=== PATIENT | female | born 1950 | race Caucasian/White ===

== ENCOUNTER → 2016-12-02 | Outpatient (CLI) | payer OTHER ==
[2016-12-02 16:09] LABS: BASO % 0.6 % (0.0-1.0); EOS # 0.1 K/mm3 (0.0-0.50); LARGE UNSTAINED CELL # 0.2 K/mm3 (0.0-0.4); LYMPH # 1.7 K/mm3 (1.5-4.5); LYMPH % 36.1 % (24.0-44.0); MEAN CORPUSCULAR VOLUME 90.6 fl (80.0-96.0); MONO # 0.2 K/mm3 (0.0-0.8); MONO % 5.5 % (0.0-5.0); NEUTROPHILS # 2.2 K/mm3 (1.8-7.7); NEUTROPHILS % 51.8 % (36.0-66.0); PLATELET COUNT, AUTOMATED 221 k/mm3 (150-450); WHITE BLOOD COUNT 4.3 K/mm3 (4.0-10.0)
[2016-12-02 16:36] LABS: ALBUMIN/GLOBULIN RATIO 1.11 (1.00-1.93); ALKALINE PHOSPHATASE 106 U/L (45-117); ALT/SGPT 59 U/L (12-78); ANION GAP 9 MEQ/L (8-16); AST/SGOT 44 U/L (15-37); BILIRUBIN,TOTAL 0.5 MG/DL (0.2-1.0); BLOOD UREA NITROGEN 13 MG/DL (7-18); CALCIUM LEVEL 9.1 MG/DL (8.8-10.2); CARBON DIOXIDE LEVEL 25 MEQ/L (21-32); CHLORIDE LEVEL 109 MEQ/L (98-107); CHOLESTEROL LEVEL 199 MG/DL (<200); CREATININE FOR GFR 0.96 MG/DL (0.55-1.02); GLOMERULAR FILTRATION RATE > 60.0 (>45); GLUCOSE, FASTING 99 MG/DL (80-110); POTASSIUM SERUM 4.2 MEQ/L (3.5-5.1); SODIUM LEVEL 143 MEQ/L (136-145); TOTAL PROTEIN 7.6 GM/DL (6.4-8.2); TRIGLYCERIDES LEVEL 141 MG/DL (<150)
== END ==
LOC: M LAB 13:00
PROVIDERS: ATTEND Family Medicine
DX: K90.0 Celiac disease (principal); E66.01 Morbid (severe) obesity due to excess calories; M85.862 Other specified disorders of bone density and structure, left lower leg; Z79.899 Other long term (current) drug therapy

== ENCOUNTER → 2017-01-12 | Outpatient (REF) | payer OTHER | LOC: M LAB REF 13:11 | PROVIDERS: ATTEND Advanced Practice Midwife | DX: Z12.4 Encounter for screening for malignant neoplasm of cervix (principal) | CPT/HCPCS: 87624; G0123 ==

== ENCOUNTER → 2017-04-21 | Outpatient (CLI) | payer OTHER ==
--- NOTE | 2017-04-21 11:31 | REPMRS ---
Patient History The patient states she had a clinical breast exam in December 2016. Patient is postmenopausal and is nulliparous. Family history of colorectal cancer in mother at age 68 and endometrial cancer in paternal aunt at age 40. Taking estrogen for 3 years. Taking progesterone for 3 years. Digital Mammo Screening Bilat: April 21, 2017 - Exam #: [id number] Bilateral CC and MLO view(s) were taken. Technologist: Gloria Verdin, Technologist Prior study comparison: April 16, 2016, bilateral digital mammo screening bilat performed at [facility]. April 11, 2015, digital woman screen mammo, performed at [facility]. FINDINGS: There are scattered fibroglandular densities. There has been no change in the appearance of the mammogram from the prior studies. There is a mild amount of residual fibroglandular tissue which is fairly symmetric. There is no interval development of dominant mass, architectural distortion, or clustered microcalcification suggestive of malignancy. ASSESSMENT: BI-RADS/ACR category 1 mammogram. Negative. Recommendation Routine screening mammogram in 1 year (for women over age 40). This mammogram was interpreted with the aid of an FDA-approved computer-aided dectection system. Electronically Signed By: Mark Chamberlain MD 04/21/17 [id number]
== END ==
LOC: M RAD 10:52
PROVIDERS: ATTEND Advanced Practice Midwife
DX: Z12.31 Encounter for screening mammogram for malignant neoplasm of breast (principal)

== ENCOUNTER → 2017-06-12 | Outpatient (CLI) | payer OTHER ==
[2017-06-12 09:19] LABS: BASO % 0.5 % (0.0-1.0); EOS # 0.2 10^3/uL (0.0-0.50); EOS % 3.6 % (0.0-3.0); IMMATURE GRANULOCYTE % 0.2 % (0-0); LYMPH # 1.8 10^3/uL (1.5-4.5); LYMPH % 44.4 % (24.0-44.0); MEAN CORPUSCULAR HEMOGLOBIN 28.4 pg (27.0-33.0); MEAN CORPUSCULAR HGB CONC 31.3 g/dl (32.0-36.5); MEAN CORPUSCULAR VOLUME 90.7 fl (80.0-96.0); MONO # 0.4 10^3/uL (0.0-0.8); MONO % 8.7 % (0.0-5.0); NEUTROPHILS # 1.8 10^3/uL (1.8-7.7); NEUTROPHILS % 42.6 % (36.0-66.0); PLATELET COUNT, AUTOMATED 222 10^3/uL (150-450); RED CELL DISTRIBUTION WIDTH 14.3 % (11.5-14.5); WHITE BLOOD COUNT 4.1 10^3/uL (4.0-10.0)
[2017-06-12 09:51] LABS: ALBUMIN 3.8 GM/DL (3.2-5.2); ALBUMIN/GLOBULIN RATIO 1.12 (1.00-1.93); ALKALINE PHOSPHATASE 103 U/L (45-117); ALT/SGPT 71 U/L (12-78); ANION GAP 11 MEQ/L (8-16); AST/SGOT 51 U/L (7-37); BILIRUBIN,TOTAL 0.6 MG/DL (0.2-1.0); BLOOD UREA NITROGEN 13 MG/DL (7-18); CALCIUM LEVEL 8.7 MG/DL (8.8-10.2); CARBON DIOXIDE LEVEL 24 MEQ/L (21-32); CHLORIDE LEVEL 110 MEQ/L (98-107); CHOLESTEROL LEVEL 171 MG/DL (<200); CREATININE FOR GFR 0.95 MG/DL (0.55-1.02); FREE T4 0.98 NG/DL (0.76-1.46); GLOMERULAR FILTRATION RATE > 60.0 (>45); GLUCOSE, FASTING 115 MG/DL (80-110); POTASSIUM SERUM 4.2 MEQ/L (3.5-5.1); SODIUM LEVEL 145 MEQ/L (136-145); TOTAL PROTEIN 7.2 GM/DL (6.4-8.2); TRIGLYCERIDES LEVEL 127 MG/DL (<150)
== END ==
LOC: M LAB 08:49
PROVIDERS: ATTEND Physician Assistant
DX: K90.0 Celiac disease (principal); E55.9 Vitamin D deficiency, unspecified; E78.2 Mixed hyperlipidemia

== ENCOUNTER → 2017-08-27 | Outpatient (REF) | payer OTHER ==
[2017-08-27 14:34] LABS: INFLUENZA A AMPLIFICATION NEGATIVE (NEGATIVE); INFLUENZA B AMPLIFICATION NEGATIVE (NEGATIVE)
== END ==
LOC: M LAB REF 13:24
DX: J06.9 Acute upper respiratory infection, unspecified (principal)
CPT/HCPCS: 87502

== ENCOUNTER → 2017-09-09 | Outpatient (CLI) | payer OTHER ==
[2017-09-09 12:45] LABS: ESTIMATED AVERAGE GLUCOSE 111 MG/DL (60-110); HEMOGLOBIN A1c 5.5 %
[2017-09-09 13:02] LABS: ANION GAP 8 MEQ/L (8-16); BLOOD UREA NITROGEN 18 MG/DL (7-18); CALCIUM LEVEL 9.5 MG/DL (8.8-10.2); CARBON DIOXIDE LEVEL 27 MEQ/L (21-32); CHLORIDE LEVEL 105 MEQ/L (98-107); CREATININE FOR GFR 0.99 MG/DL (0.55-1.30); GLOMERULAR FILTRATION RATE 59.4 (>45); GLUCOSE, FASTING 105 MG/DL (70-100); POTASSIUM SERUM 4.1 MEQ/L (3.5-5.1); SODIUM LEVEL 140 MEQ/L (136-145)
== END ==
LOC: M LAB 11:56
DX: R73.01 Impaired fasting glucose (principal)
CPT/HCPCS: 83036

== ENCOUNTER → 2017-09-14 | Outpatient (CLI) | payer OTHER | LOC: M LAB 11:44 | DX: R05 Cough (principal) | CPT/HCPCS: 71046 ==

== ENCOUNTER 2017-10-12 05:27 | Emergency (ER) | payer OTHER ==
[2017-10-12] MEDS: NS 1,000 ML IV (06:45)
[2017-10-12] MEDS: KETOROLAC 30 MG/ML VIAL (J1885) IV (06:45)
[2017-10-12 06:51] LABS: BASO % 0.4 % (0.0-1.0); EOS # 0.2 10^3/uL (0.0-0.50); EOS % 4.6 % (0.0-3.0); HEMATOCRIT 41.6 % (36.0-47.0); HEMOGLOBIN 13.1 g/dl (12.0-16.0); IMMATURE GRANULOCYTE % 0.4 % (0-3.0); MEAN CORPUSCULAR HEMOGLOBIN 28.6 pg (27.0-33.0); MEAN CORPUSCULAR HGB CONC 31.5 g/dl (32.0-36.5); MEAN CORPUSCULAR VOLUME 90.8 fl (80.0-96.0); MONO # 0.5 10^3/uL (0.0-0.8); MONO % 9.4 % (0.0-5.0); NEUTROPHILS # 2.1 10^3/uL (1.8-7.7); NEUTROPHILS % 43.2 % (36.0-66.0); PLATELET COUNT, AUTOMATED 230 10^3/uL (150-450); RED BLOOD COUNT 4.58 10^6/uL (4.00-5.40); RED CELL DISTRIBUTION WIDTH 14.4 % (11.5-14.5); WHITE BLOOD COUNT 4.8 10^3/uL (4.0-10.0)
[2017-10-12 06:58] LABS: ANION GAP 11 MEQ/L (8-16); BLOOD UREA NITROGEN 11 MG/DL (7-18); CALCIUM LEVEL 8.8 MG/DL (8.8-10.2); CARBON DIOXIDE LEVEL 21 MEQ/L (21-32); CHLORIDE LEVEL 110 MEQ/L (98-107); CREATININE FOR GFR 0.88 MG/DL (0.55-1.30); GLOMERULAR FILTRATION RATE > 60.0 (>45); GLUCOSE, FASTING 105 MG/DL (70-100); POTASSIUM SERUM 4.6 MEQ/L (3.5-5.1); SODIUM LEVEL 142 MEQ/L (136-145)
[2017-10-12 07:01] LABS: KETONE, URINE AUTO RFX NEGATIVE (NEGATIVE); MUCUS, URINE RFX SMALL (NEGATIVE); NITRITE, URINE AUTO RFX NEGATIVE (NEGATIVE); RBC, URINE AUTO RFX 4 /HPF (0-3); SPECIFIC GRAVITY UR AUTO RFX 1.012 (1.002-1.035); SQUAM EPITHELIAL CELL UR AURFX 2 /HPF (0-6)
[2017-10-12] MEDS: MORPHINE 2 MG/ML 1ML SYRINGE (J2270) IV (07:42)
[2017-10-12] MEDS: metroNIDAZOLE (FLAGYL) 500 MG TAB PO (08:00)
[2017-10-12] MEDS: CIPROFLOXACIN 500 MG TAB PO (08:00)
[2017-10-12 08:32] LABS: LEUKOCYTE ESTERASE UR AUTO RFX 2+ (NEGATIVE); WBC, URINE AUTO RFX 14 /HPF (0-3)
== END 2017-10-12 08:13 | disposition home or self-care (01) ==
LOC: M ED 05:27
DX: K57.32 Diverticulitis of large intestine without perforation or abscess without bleeding (principal); F41.9 Anxiety disorder, unspecified; K21.9 Gastro-esophageal reflux disease without esophagitis; K90.0 Celiac disease; Z87.19 Personal history of other diseases of the digestive system; Z87.442 Personal history of urinary calculi; Z91.041 Radiographic dye allergy status; Z88.8 Allergy status to other drugs, medicaments and biological substances; Z88.1 Allergy status to other antibiotic agents; Z88.5 Allergy status to narcotic agent; Z88.2 Allergy status to sulfonamides; Z88.0 Allergy status to penicillin
CPT/HCPCS: J1885

== ENCOUNTER → 2017-12-11 | Outpatient (CLI) | payer OTHER ==
[2017-12-11 08:37] LABS: ANION GAP 9 MEQ/L (8-16); BLOOD UREA NITROGEN 18 MG/DL (7-18); CALCIUM LEVEL 9.1 MG/DL (8.8-10.2); CARBON DIOXIDE LEVEL 24 MEQ/L (21-32); CHLORIDE LEVEL 108 MEQ/L (98-107); CHOLESTEROL LEVEL 201 MG/DL (<200); CHOLESTEROL RISK RATIO 4.276 (<5); CREATININE FOR GFR 1.06 MG/DL (0.55-1.30); FREE T4 0.91 NG/DL (0.76-1.46); GLOMERULAR FILTRATION RATE 54.7 (>45); GLUCOSE, FASTING 105 MG/DL (70-100); HDL CHOLESTEROL 47 MG/DL (>40); LDL CHOLESTEROL 120.4 MG/DL (<100); NON-HDL-C 154 MG/DL; POTASSIUM SERUM 3.9 MEQ/L (3.5-5.1); SODIUM LEVEL 141 MEQ/L (136-145); TRIGLYCERIDES LEVEL 168 MG/DL (<150)
[2017-12-11 08:50] LABS: ESTIMATED AVERAGE GLUCOSE 103 MG/DL (60-110); HEMOGLOBIN A1c 5.2 %
== END ==
LOC: M LAB 07:25
DX: R73.01 Impaired fasting glucose (principal); E66.01 Morbid (severe) obesity due to excess calories; Z79.899 Other long term (current) drug therapy
CPT/HCPCS: 84443

== ENCOUNTER → 2018-02-23 | Outpatient (CLI) | payer OTHER ==
[2018-02-23 11:20] LABS: ANION GAP 11 MEQ/L (8-16); BLOOD UREA NITROGEN 15 MG/DL (7-18); CALCIUM LEVEL 9.1 MG/DL (8.8-10.2); CARBON DIOXIDE LEVEL 26 MEQ/L (21-32); CHLORIDE LEVEL 105 MEQ/L (98-107); CHOLESTEROL LEVEL 186 MG/DL (<200); CHOLESTEROL RISK RATIO 4.769 (<5); CREATININE FOR GFR 1.09 MG/DL (0.55-1.30); GLUCOSE, FASTING 113 MG/DL (70-100); HDL CHOLESTEROL 39 MG/DL (>40); NON-HDL-C 147 MG/DL; POTASSIUM SERUM 4.1 MEQ/L (3.5-5.1); SODIUM LEVEL 142 MEQ/L (136-145); TRIGLYCERIDES LEVEL 255 MG/DL (<150)
== END ==
LOC: M LAB 10:00
DX: N17.9 Acute kidney failure, unspecified (principal); E78.00 Pure hypercholesterolemia, unspecified

== ENCOUNTER → 2018-02-23 | Outpatient (CLI) | payer OTHER ==
[2018-02-23 10:40] LABS: BASO % 0.7 % (0.0-1.0); EOS # 0.2 10^3/uL (0.0-0.50); EOS % 2.7 % (0.0-3.0); HEMATOCRIT 41.7 % (36.0-47.0); HEMOGLOBIN 13.3 g/dl (12.0-15.5); IMMATURE GRANULOCYTE % 0.2 % (0-3.0); LYMPH # 2.6 10^3/uL (1.5-4.5); LYMPH % 45.5 % (24.0-44.0); MEAN CORPUSCULAR HGB CONC 31.9 g/dl (32.0-36.5); MEAN CORPUSCULAR VOLUME 90.8 fl (80.0-96.0); MONO # 0.5 10^3/uL (0.0-0.8); MONO % 9.4 % (0.0-5.0); NEUTROPHILS # 2.4 10^3/uL (1.8-7.7); NEUTROPHILS % 41.5 % (36.0-66.0); PLATELET COUNT, AUTOMATED 212 10^3/uL (150-450); RED BLOOD COUNT 4.59 10^6/uL (4.00-5.40); RED CELL DISTRIBUTION WIDTH 13.7 % (11.5-14.5); WHITE BLOOD COUNT 5.7 10^3/uL (4.0-10.0)
[2018-02-23 11:17] LABS: ALBUMIN/GLOBULIN RATIO 1.03 (1.00-1.93); ALKALINE PHOSPHATASE 111 U/L (45-117); ALT/SGPT 55 U/L (12-78); ANION GAP 9 MEQ/L (8-16); AST/SGOT 37 U/L (7-37); BILIRUBIN,DIRECT 0.1 MG/DL (0.0-0.2); BILIRUBIN,TOTAL 0.6 MG/DL (0.2-1.0); BLOOD UREA NITROGEN 14 MG/DL (7-18); CALCIUM LEVEL 9.1 MG/DL (8.8-10.2); CARBON DIOXIDE LEVEL 28 MEQ/L (21-32); CHLORIDE LEVEL 106 MEQ/L (98-107); CREATININE FOR GFR 1.06 MG/DL (0.55-1.30); GLOMERULAR FILTRATION RATE 54.7 (>45); GLUCOSE, FASTING 110 MG/DL (70-100); PHOSPHORUS LEVEL 3.6 MG/DL (2.5-4.9); POTASSIUM SERUM 4.3 MEQ/L (3.5-5.1); SODIUM LEVEL 143 MEQ/L (136-145); TOTAL PROTEIN 7.9 GM/DL (6.4-8.2)
== END ==
LOC: M LAB 10:03
DX: Z51.81 Encounter for therapeutic drug level monitoring (principal); Z79.899 Other long term (current) drug therapy; N17.9 Acute kidney failure, unspecified; E78.00 Pure hypercholesterolemia, unspecified
CPT/HCPCS: 80076

== ENCOUNTER 2018-03-03 11:27 | Day surgery (SDC) | payer OTHER ==
[2018-03-03] MEDS: LR 1,000 ML IV (12:44)
[2018-03-03] MEDS ORDERED: fentaNYL 100 MCG/2 ML INJECTION (J3010) As Ordered (14:44)
[2018-03-03] MEDS ORDERED: MIDAZOLAM INJ 2 MG/2 ML VIAL (J2250) As Ordered (14:44)
[2018-03-03] MEDS ORDERED: LIDOCAINE 2% INJ 100 MG/5 ML SDV (FOR ANES.) As Ordered (14:44)
[2018-03-03] MEDS ORDERED: PROPOFOL 200 MG/20 ML VIAL As Ordered (14:44)
[2018-03-03] MEDS ORDERED: ROCURONIUM BROMIDE 50 MG/5 ML VIAL As Ordered (14:44)
[2018-03-03] MEDS: dexameTHASONE 4 MG/ML 1ML VIAL (J1100) IV (14:45)
[2018-03-03] MEDS ORDERED: ONDANSETRON 4MG/2ML VIAL (J2405) As Ordered (14:55)
[2018-03-03] MEDS ORDERED: GLYCOPYRROLATE INJ 0.2 MG/ML 2 ML VIAL As Ordered (15:14)
[2018-03-03] MEDS ORDERED: NEOSTIGMINE 10 MG/10 ML VIAL (J2710) As Ordered (15:14)
[2018-03-03] MEDS ORDERED: PERCOCET 5MG/325MG TAB As Ordered (15:36)
[2018-03-03] MEDS ORDERED: NORCO, ANEXSIA 5/325MG TABLET (HYDROcodone/ACETAMINOPHEN) As Ordered (15:43)
[2018-03-03] MEDS: NORCO, ANEXSIA 5/325MG TABLET (HYDROcodone/ACETAMINOPHEN) PO ×2 (15:45→16:18)
[2018-03-03] MEDS ORDERED: PERCOCET 5MG/325MG TAB PO (16:00)
[2018-03-03] MEDS ORDERED: ONDANSETRON 4MG/2ML VIAL (J2405) IV ×2 (16:00)
[2018-03-03] MEDS ORDERED: METOCLOPRAMIDE INJ 10MG/2ML VIAL (J2765) IV (16:00)
[2018-03-03] MEDS ORDERED: HYDROMORPHONE HCL 0.5 MG/ 0.5 ML SYRINGE (J1170 PER 1) IV (16:00)
[2018-03-03] MEDS ORDERED: LR 1,000 ML IV ×3 (16:00)
[2018-03-03] MEDS ORDERED: MEPERIDINE INJ 25 MG/ML VIAL (J2175) IV (16:00)
[2018-03-03] MEDS ORDERED: fentaNYL 100 MCG/2 ML INJECTION (J3010) IV ×2 (16:00)
== END 2018-03-03 17:25 | disposition home or self-care (01) ==
LOC: M SDC 11:27
DX: 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, including tongue (principal); E78.00 Pure hypercholesterolemia, unspecified; K57.32 Diverticulitis of large intestine without perforation or abscess without bleeding; K44.9 Diaphragmatic hernia without obstruction or gangrene; K21.9 Gastro-esophageal reflux disease without esophagitis; M81.0 Age-related osteoporosis without current pathological fracture; L71.9 Rosacea, unspecified; L40.9 Psoriasis, unspecified; F41.9 Anxiety disorder, unspecified; K58.9 Irritable bowel syndrome, unspecified; D64.9 Anemia, unspecified; R73.01 Impaired fasting glucose; K90.41 Non-celiac gluten sensitivity; E66.9 Obesity, unspecified; Z68.41 Body mass index [BMI] 40.0-44.9, adult; Z88.0 Allergy status to penicillin; Z88.1 Allergy status to other antibiotic agents; Z88.2 Allergy status to sulfonamides; Z88.4 Allergy status to anesthetic agent; Z88.5 Allergy status to narcotic agent; Z88.8 Allergy status to other drugs, medicaments and biological substances; Z91.041 Radiographic dye allergy status; Z79.899 Other long term (current) drug therapy; Z78.0 Asymptomatic menopausal state; Z87.442 Personal history of urinary calculi
CPT/HCPCS: 41599

== ENCOUNTER → 2018-05-10 | Outpatient (CLI) | payer OTHER | LOC: M RAD 08:53 | DX: Z12.31 Encounter for screening mammogram for malignant neoplasm of breast (principal) | CPT/HCPCS: 77067 ==

== ENCOUNTER → 2018-06-14 | Outpatient (CLI) | payer OTHER ==
[2018-06-14 08:28] LABS: ANION GAP 6 MEQ/L (8-16); BLOOD UREA NITROGEN 14 MG/DL (7-18); CARBON DIOXIDE LEVEL 26 MEQ/L (21-32); CHLORIDE LEVEL 111 MEQ/L (98-107); CREATININE FOR GFR 0.89 MG/DL (0.55-1.30); GLOMERULAR FILTRATION RATE > 60.0 (>45); GLUCOSE, FASTING 114 MG/DL (70-100); SODIUM LEVEL 143 MEQ/L (136-145)
[2018-06-14 12:12] LABS: ESTIMATED AVERAGE GLUCOSE 108 MG/DL (60-110); HEMOGLOBIN A1c 5.4 %
== END ==
LOC: M LAB 07:27
DX: R73.01 Impaired fasting glucose (principal)
CPT/HCPCS: 83036

== ENCOUNTER → 2018-12-01 | Outpatient (REF) | payer OTHER ==
[~2018-12-01] MED LIST: ALAW0.02 OU; ALPR0.25 PO; CALC750T PO; CIPR-249 PO; D 50CAP PO; DAPS25TA2 PO; DICY10CA13 PO; ESTRTAB10 PO; FISH120012 PO; FLAG500T PO; FLON1SPR; HYDR-3715 PO; LEUTEIN PO; META0.52 PO; NATU400T PO; NATU99.0 OU; PANT40TA3; PRO-CAP PO; PROT1TAB2 PO; RANI300T PO; REST0.05 OU; REST0.057; TOPI25TA10 PO; VITA100018 PO; VITA100066 PO; ZOFR4TAB14 PO
== END ==
LOC: M LAB REF 17:46
PROVIDERS: ATTEND Physician Assistant
DX: R30.0 Dysuria (principal)

== ENCOUNTER → 2018-12-10 | Outpatient (CLI) | payer MEDICARE ==
[2018-12-10 11:54] LABS: BASO % 0.6 % (0.0-1.0); EOS # 0.1 10^3/uL (0.0-0.50); EOS % 2.4 % (0.0-3.0); HEMATOCRIT 42.2 % (36.0-47.0); HEMOGLOBIN 13.2 g/dl (12.0-15.5); LYMPH # 2.3 10^3/uL (1.5-4.5); LYMPH % 45.4 % (24.0-44.0); MEAN CORPUSCULAR HEMOGLOBIN 28.5 pg (27.0-33.0); MEAN CORPUSCULAR HGB CONC 31.3 g/dl (32.0-36.5); MEAN CORPUSCULAR VOLUME 91.1 fl (80.0-96.0); MONO # 0.5 10^3/uL (0.0-0.8); NEUTROPHILS # 2.1 10^3/uL (1.8-7.7); NEUTROPHILS % 42.4 % (36.0-66.0); PLATELET COUNT, AUTOMATED 254 10^3/uL (150-450); RED BLOOD COUNT 4.63 10^6/uL (4.00-5.40)
[2018-12-10 12:31] LABS: ALBUMIN 3.7 GM/DL (3.2-5.2); BILIRUBIN,TOTAL 0.6 MG/DL (0.2-1.0); CALCIUM LEVEL 8.7 MG/DL (8.8-10.2); CHOLESTEROL RISK RATIO 4.219 (<5); CREATININE FOR GFR 0.98 MG/DL (0.55-1.30); GLOMERULAR FILTRATION RATE 59.7 (>39); POTASSIUM SERUM 4.4 MEQ/L (3.5-5.1)
[2018-12-10 12:42] LABS: HEMOGLOBIN A1c 5.2 %
== END ==
LOC: M LAB 11:13
PROVIDERS: ATTEND Physician Assistant
DX: E78.00 Pure hypercholesterolemia, unspecified (principal)

== ENCOUNTER → 2019-03-25 | Outpatient (CLI) | payer MEDICARE ==
--- NOTE | 2019-03-25 10:15 | REP ---
Left knee four views : There is no fracture or dislocation. Mineralization and joint spaces are normal. There are no calcifications or foreign bodies. Impression: Negative left knee . Electronically Signed by Mark Garcia MD 03/25/2019 10:07 A
--- NOTE | 2019-03-25 10:17 | REP ---
Left ankle four views : There is no fracture or dislocation. Mineralization and joint spaces are normal. There are no calcifications or foreign bodies. There are calcaneal plantar and Achilles spurs. Impression: Calcaneal plantar and Achilles spurs, otherwise, negative left ankle . Electronically Signed by Mark Garcia MD 03/25/2019 10:08 A
== END ==
LOC: M WUC 08:42
PROVIDERS: ATTEND Physician Assistant
DX: M77.32 Calcaneal spur, left foot (principal)

== ENCOUNTER → 2019-05-11 | Outpatient (CLI) | payer MEDICARE ==
--- NOTE | 2019-05-11 12:08 | REPMRS ---
Patient History The patient states she had a clinical breast exam in 2018. Patient is postmenopausal and is nulliparous. Family history of colorectal cancer at age 68 in mother, endometrial cancer at age 40 in paternal aunt. Took estrogen for 5 years. Took progesterone for 5 years. Digital Mammo Screening Bilat: May 11, 2019 - Exam #: [id number] Bilateral CC and MLO view(s) were taken. Technologist: Jessi Connor, Technologist Prior study comparison: May 10, 2018, bilateral digital mammo screening bilat performed at [facility]. April 21, 2017, bilateral digital mammo screening bilat performed at [facility]. April 16, 2016, bilateral digital mammo screening bilat performed at [facility]. FINDINGS: The breast tissue is almost entirely fat. There has been no change in the appearance of the mammogram from the prior studies. There is no interval development of dominant mass, architectural distortion, or grouped microcalcification typical of malignancy. 3-D tomosynthesis shows no additional findings. Assessment: BI-RADS/ACR category 1 mammogram. Negative Mammogram. Recommendation Routine screening mammogram of both breasts in 1 year (for women over age 40). This patient's Lifetime Breast Cancer RIsk is estimated at 8.3 %. This mammogram was interpreted with the aid of an FDA-approved computer-aided dectection system. Electronically Signed By: Cj Barillas MD 05/11/19 [id number]
== END ==
LOC: M RAD 07:42
PROVIDERS: ATTEND Advanced Practice Midwife
DX: Z12.31 Encounter for screening mammogram for malignant neoplasm of breast (principal); Z80.0 Family history of malignant neoplasm of digestive organs; Z80.49 Family history of malignant neoplasm of other genital organs

== ENCOUNTER → 2019-06-27 | Outpatient (CLI) | payer MEDICARE ==
--- NOTE | 2019-06-30 10:38 | DEXA ---
AP SPINE L1 - L4 1.165 -0.2 1.4 LT FEMUR TOTAL 0.909 -0.8 0.7 LT NECK 0.839 -1.4 0.3 RT FEMUR TOTAL 0.881 -1.0 0.5 RT NECK 0.878 -1.1 0.6 TOTAL BODY TOTAL OTHER COMMENTS: Normal bone densitometry of the spine. There is low bone density of the hips. The decreased density of the spine does not represent a significant change. The increased density of the left hip does not represent a significant change. The decreased density of the right hip does not represent a significant change. The density of the spine is increased 4.7% since the initial exam on 04/04/2003. The spine density has decreased 0.5% since the most recent exam on 04/10/2014. The density of the left hip has increased 6.3% since the initial exam on 04/04/2003. The density of the left hip has increased 1.6% since the most recent exam on 04/10/2014. The density of the right hip has increased 1.5% since the initial exam on 04/04/2003. The density of the right hip has decreased 0.6% since the most recent exam on 04/10/2014. FOLLOW-UP: Recommendation for the next bone density exam: 2 years. LONI
== END ==
LOC: M WHC 08:17
PROVIDERS: ATTEND Advanced Practice Midwife
DX: Z13.820 Encounter for screening for osteoporosis (principal); M85.851 Other specified disorders of bone density and structure, right thigh; M85.852 Other specified disorders of bone density and structure, left thigh

== ENCOUNTER → 2019-09-24 | Outpatient (CLI) | payer MEDICARE ==
[~2019-09-24] MED LIST changes: +CALCCAP4 PO; +ESTR1TAB PO; +GNP250TA9 PO; +KP F1200 PO; +MELA5CAP2 PO; +SYST1SOL OU; +TOPA1TAB PO; +VITA30004 PO; +[UNRECOGNIZED DRUG - CODE] PO
[2019-09-24 11:37] LABS: BASO % 0.7 % (0.0-1.0); EOS # 0.1 10^3/uL (0.0-0.5); EOS % 1.9 % (0.0-3.0); HEMATOCRIT 40.7 % (36.0-47.0); HEMOGLOBIN 12.7 g/dl (12.0-15.5); LYMPH # 1.7 10^3/uL (1.5-5.0); LYMPH % 39.4 % (24.0-44.0); MEAN CORPUSCULAR HEMOGLOBIN 28.7 pg (27.0-33.0); MEAN CORPUSCULAR HGB CONC 31.2 g/dl (32.0-36.5); MEAN CORPUSCULAR VOLUME 91.9 fl (80.0-96.0); MONO # 0.4 10^3/uL (0.0-0.8); MONO % 8.2 % (0.0-5.0); NEUTROPHILS # 2.1 10^3/uL (1.5-8.5); NEUTROPHILS % 49.6 % (36.0-66.0); PLATELET COUNT, AUTOMATED 204 10^3/uL (150-450); RED BLOOD COUNT 4.43 10^6/uL (4.00-5.40); WHITE BLOOD COUNT 4.3 10^3/uL (4.0-10.0)
[2019-09-24 11:54] LABS: INR 1.16; PARTIAL THROMBOPLASTIN TIME 34.3 SECONDS (25.0-38.4); PROTHROMBIN TIME 14.5 SECONDS (11.8-14.0)
[2019-09-24 11:59] LABS: ALBUMIN 4.1 GM/DL (3.2-5.2); ALT/SGPT 50 U/L (12-78); BILIRUBIN,TOTAL 0.6 MG/DL (0.2-1.0); BLOOD UREA NITROGEN 17 MG/DL (7-18); CALCIUM LEVEL 8.9 MG/DL (8.8-10.2); CARBON DIOXIDE LEVEL 25 MEQ/L (21-32); CHLORIDE LEVEL 111 MEQ/L (98-107); CREATININE FOR GFR 0.85 MG/DL (0.55-1.30); GLOMERULAR FILTRATION RATE > 60.0 (>39); GLUCOSE, FASTING 107 MG/DL (70-100); POTASSIUM SERUM 4.1 MEQ/L (3.5-5.1); SODIUM LEVEL 142 MEQ/L (136-145); TOTAL PROTEIN 7.7 GM/DL (6.4-8.2)
== END ==
LOC: M LAB 10:33
PROVIDERS: ATTEND Physician Assistant
DX: Z01.812 Encounter for preprocedural laboratory examination (principal)

== ENCOUNTER 2019-09-29 07:27 | Day surgery (SDC) | payer MEDICARE ==
[~2019-09-29] VITALS: Ht 149.9 cm; Wt 102.6 kg
[2019-09-29] MEDS ORDERED: dexameTHASONE 4 MG/ML 1ML VIAL (J1100) IV ONE (08:00)
[2019-09-29] MEDS ORDERED: LIDOCAINE W/EPINEPHRINE 1% 20ML VIAL As Ordered ONE (08:31)
[2019-09-29] MEDS ORDERED: LIDOCAINE 2% INJ 100 MG/5 ML SDV (FOR ANES.) As Ordered ONE (08:39)
[2019-09-29] MEDS ORDERED: propofoL 200 MG/20 ML VIAL As Ordered ONE (08:39)
[2019-09-29] MEDS ORDERED: ROCURONIUM BROMIDE 50 MG/5 ML VIAL As Ordered ONE (08:39)
[2019-09-29] MEDS ORDERED: dexameTHASONE 4 MG/ML 1ML VIAL (J1100) As Ordered ONE (08:39)
[2019-09-29] MEDS ORDERED: fentaNYL 250 MCG/5 ML INJECTION (J3010) As Ordered ONE (08:40)
[2019-09-29] MEDS ORDERED: MIDAZOLAM INJ 2 MG/2 ML VIAL (J2250) As Ordered ONE (08:40)
[2019-09-29] MEDS ORDERED: LR 1,000 ML IV ONE (08:45)
[2019-09-29] MEDS ORDERED: LACRILUBE (AKWA TEARS) OPHTH OINT 3.5 GM As Ordered ONE (09:32)
[2019-09-29] MEDS ORDERED: SUGAMMADEX SODIUM 500 MG/5 ML VIAL (BRIDION) As Ordered ONE (10:20)
[2019-09-29] MEDS ORDERED: LR 1,000 ML IV SCH (10:30)
[2019-09-29] MEDS ORDERED: ONDANSETRON 4MG/2ML VIAL (J2405) IV PRN (10:30)
[2019-09-29] MEDS ORDERED: fentaNYL 100 MCG/2 ML INJECTION (J3010) IV PRN (10:30)
[2019-09-29] MEDS ORDERED: ACETAMINOPHEN 500 MG TAB PO ONE (11:00)
[2019-09-29 12:10] VITALS: BP 139/62
--- NOTE | 2019-10-03 12:19 | RO ---
DATE OF PROCEDURE: 09/29/2019 PREPROCEDURE DIAGNOSIS: Lesion left lateral oral tongue. POSTPROCEDURE DIAGNOSIS: Lesion left lateral oral tongue. PROCEDURE: Excision biopsy of the left lateral oral tongue lesion. SURGEON: Dr. Skip Fleming. SENIOR ACCOUNT EXECUTIVE: ANESTHESIA: General. CLINICAL PREAMBLE: This 68-year-old woman presented to the office with history of a nonhealing lesion over the lateral oral tongue. Management options including excision and biopsy have been discussed. The patient understood and consented to the procedure. DESCRIPTION OF PROCEDURE: The patient was identified in pre-holding and brought to the operating room in stable condition. In the supine position on the operating room table, the patient received general anesthesia followed by nasal tracheal intubation without incident. The patient was prepped and draped in the usual fashion for the procedure. The oral cavity was then retracted open with a side-opening mouth gag. The tongue was retracted laterally to the right side exposing the left lateral oral tongue. The lesion was noted to be 0.5 cm in size. Excision was then performed. One suture was placed to indicate anterior margin and two sutures were placed to indicate superior margin. An additional tissue was obtained from the superior margin to insure complete excision. When hemostasis was achieved using bipolar electrocautery, 0 chromic suture was then used to reapproximate the mucosal edge on the operative sites. Sponge and instrument counts were correct at the end of the procedure. Estimated blood loss was less than 5 mL. General anesthesia was reversed and patient was extubated and moved to the recovery room stable condition. SPECIMENS: 1. One. suture was placed to indicate anterior margin and two sutures were placed to indicate superior margin. 2. 0.2 cm additional margin from the superior portion.
== END 2019-09-29 12:28 | disposition home or self-care (01) ==
LOC: M SDC 07:27
PROVIDERS: ATTEND Otolaryngology
DX: D00.07 Carcinoma in situ of tongue (principal); K58.1 Irritable bowel syndrome with constipation; K57.92 Diverticulitis of intestine, part unspecified, without perforation or abscess without bleeding; D64.9 Anemia, unspecified; M19.90 Unspecified osteoarthritis, unspecified site; K21.9 Gastro-esophageal reflux disease without esophagitis; K44.9 Diaphragmatic hernia without obstruction or gangrene; F41.9 Anxiety disorder, unspecified; H81.10 Benign paroxysmal vertigo, unspecified ear; K90.0 Celiac disease; G43.909 Migraine, unspecified, not intractable, without status migrainosus; E78.00 Pure hypercholesterolemia, unspecified; L40.9 Psoriasis, unspecified; L71.9 Rosacea, unspecified; Z88.0 Allergy status to penicillin; Z88.1 Allergy status to other antibiotic agents; Z88.2 Allergy status to sulfonamides; Z88.8 Allergy status to other drugs, medicaments and biological substances; Z91.041 Radiographic dye allergy status; Z88.4 Allergy status to anesthetic agent; Z88.5 Allergy status to narcotic agent; Z79.899 Other long term (current) drug therapy
CPT/HCPCS: 41100; 88305; J1100; J2250; J3010

== ENCOUNTER → 2019-11-02 | Outpatient (CLI) | payer MEDICARE ==
[~2019-11-02] MED LIST changes: +PROHANCE 279.3MG/ML 15ML VIAL (A9576) As Ordered ONE; +PROHANCE 279.3MG/ML 5ML VIAL (A9576) As Ordered ONE
[2019-11-02 10:43] LABS: BLOOD UREA NITROGEN 25 MG/DL (7-18); CREATININE FOR GFR 0.97 MG/DL (0.55-1.30); GLOMERULAR FILTRATION RATE > 60.0 (>39)
--- NOTE | 2019-11-02 13:11 | REP ---
ORBITAL FACIAL MRI STUDY WITHOUT AND WITH IV CONTRAST: HISTORY: Carcinoma in situ of the tongue. TECHNIQUE: Axial and coronal imaging planes were utilized. T1 and T2-weighted sequences include spin-echo, fast spin echo, inversion recovery sequences with and without fat saturation. The gadolinium enhancement dose is 20 mL of intravenous ProHance. MRI FINDINGS: There is a oval-shaped 1.2 cm mucous retention cyst inferiorly and medially in the left maxillary sinus. No other paranasal sinus abnormality is observed. No bony mandibular or maxillary lesion is seen. No intraorbital mass is observed. The parotid and submandibular glands are unremarkable and symmetric. No abnormality is observed in the tongue or floor of the mouth soft tissues. There is a small zone of magnetic field susceptibility artifact emanating from the left side dental hardware. Contrast study shows no abnormal contrast enhancement. No vascular abnormalities observed. There is no evidence of neck adenopathy. Normal appearing intraparotid lymph nodes are noted on the left. IMPRESSION: Small mucous retention cyst left maxillary sinus. Otherwise negative. Electronically Signed by Desmond Barillas MD 11/02/2019 01:45 P
== END ==
LOC: M RAD 10:01
PROVIDERS: ATTEND Otolaryngology
DX: D00.07 Carcinoma in situ of tongue (principal); J34.1 Cyst and mucocele of nose and nasal sinus
CPT/HCPCS: 36415; 70543; 82565; 84520; A9576

== ENCOUNTER → 2019-11-19 | Outpatient (CLI) | payer MEDICARE ==
[~2019-11-19] MED LIST changes: +HYDR-3713 PO; +LUTE6CAP9 PO; -PROHANCE 279.3MG/ML 15ML VIAL (A9576) As Ordered ONE; -PROHANCE 279.3MG/ML 5ML VIAL (A9576) As Ordered ONE; +SM HTAB3 PO; +VITAD1000T PO; +[UNRECOGNIZED DRUG - OTHER] PO
== END ==
LOC: M LABSMTC 10:07
PROVIDERS: ATTEND Anesthesiology
DX: Z11.59 Encounter for screening for other viral diseases (principal)

== ENCOUNTER 2019-11-21 07:18 | Day surgery (SDC) | payer MEDICARE ==
[~2019-11-21] VITALS: Ht 152.4 cm; Wt 103.0 kg
[~2019-11-21 07:18] MED LIST changes: +LIDOCAINE 2% 100MG/5ML SDV (FOR ANES.) As Ordered ONE; +LR 1,000 ML IV ONE; +MIDAZOLAM INJ 2MG/2ML VIAL (J2250 PER 1MG) As Ordered ONE; +ONDANSETRON 4MG/2ML VIAL As Ordered ONE; +ROCURONIUM BROMIDE 50 MG/5 ML VIAL As Ordered ONE; -[UNRECOGNIZED DRUG - OTHER] PO; +dexameTHASONE 4 MG/ML 1ML VIAL (J1100 PER 1MG) As Ordered ONE; +dexameTHASONE 4 MG/ML 1ML VIAL (J1100 PER 1MG) IV ONE; +fentaNYL 100 MCG/2 ML INJECTION (J3010) As Ordered ONE; +propofoL 200 MG/20 ML VIAL As Ordered ONE
[2019-11-21] MEDS ORDERED: [UNRECOGNIZED DRUG - OTHER] PO (07:49)
[2019-11-21] MEDS ORDERED: LIDOCAINE W/EPINEPHRINE 1% 20ML VIAL As Ordered ONE (08:33)
[2019-11-21] MEDS ORDERED: OXYMETAZOLINE NASAL SPRAY (AFRIN) As Ordered ONE (08:36)
[2019-11-21] MEDS ORDERED: dexameTHASONE 4 MG/ML 1ML VIAL (J1100 PER 1MG) As Ordered ONE (09:14)
[2019-11-21] MEDS ORDERED: PHENYLephrine HCL 500 MCG/5 ML (100MCG/ML) SYRINGE (J2370) As Ordered ONE (09:14)
[2019-11-21] MEDS ORDERED: LACRILUBE (AKWA TEARS) OPHTH OINT 3.5 GM As Ordered ONE (09:15)
[2019-11-21] MEDS ORDERED: GLYCOPYRROLATE INJ 0.2 MG/ML 2 ML VIAL As Ordered ONE (09:21)
[2019-11-21] MEDS ORDERED: fentaNYL 100 MCG/2 ML INJECTION (J3010) As Ordered ONE (09:26)
[2019-11-21] MEDS ORDERED: ACETAMINOPHEN 1000MG 100ML IV BTL (OFIRMEV) (J0131 PER 10MG) As Ordered ONE (09:51)
[2019-11-21] MEDS ORDERED: KETOROLAC 60 MG/2 ML VIAL As Ordered ONE (10:00)
[2019-11-21] MEDS ORDERED: SUGAMMADEX SODIUM 500 MG/5 ML VIAL (BRIDION) As Ordered ONE (10:01)
[2019-11-21] MEDS ORDERED: ONDANSETRON 4MG/2ML VIAL IV PRN (11:00)
[2019-11-21] MEDS ORDERED: METOCLOPRAMIDE INJ 10MG/2ML VIAL (J2765 PER 1) IV PRN (11:00)
[2019-11-21] MEDS ORDERED: fentaNYL 100 MCG/2 ML INJECTION (J3010) IV PRN (11:00)
[2019-11-21] MEDS ORDERED: LR 1,000 ML IV SCH ×2 (11:00)
[2019-11-21] MEDS ORDERED: MORPHINE 4 MG/ML 1ML VIAL/SYRINGE (J2270) As Ordered ONE (11:26)
[2019-11-21] MEDS ORDERED: MORPHINE 4 MG/ML 1ML VIAL/SYRINGE (J2270) IV PRN (11:45)
[2019-11-21] MEDS ORDERED: MORPHINE 2 MG/ML 1ML VIAL (J2270) IV PRN (11:45)
[2019-11-21] MEDS ORDERED: diphenhydrAMINE 50MG/ML VIAL (J1200) As Ordered ONE (11:53)
[2019-11-21] MEDS ORDERED: diphenhydrAMINE 50MG/ML VIAL (J1200) IV PRN (12:15)
[2019-11-21 13:35] VITALS: BP 131/69
--- NOTE | 2019-11-23 12:59 | RO ---
DATE OF PROCEDURE: 11/21/2019 PREOPERATIVE DIAGNOSIS: Squamous cell carcinoma left oral tongue. POSTOPERATIVE DIAGNOSIS: Squamous cell carcinoma left oral tongue. PROCEDURE: Excision of the squamous cell carcinoma of the left oral tongue. SURGEON: Dr. Skip Fleming SENIOR ANALYTICAL CHEMIST: Delvis Baum ANESTHESIA: General. INTRAOPERATIVE FINDINGS: 2 x 1.5 cm left oral tongue excised, one suture indicating anterior margin and two sutures indicating superior margin. Intraoperative frozen section of the deep margin negative. CLINICAL PREAMBLE: This is a 69-year-old woman who noticed a lesion over the left oral tongue several months ago. 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 As such, management options including re-excision of the left lateral oral tongue lesion had been discussed in detail with the patient. She understood and consented to the procedure. OR NARRATION: The patient was identified in preoperative holding and brought to the operating room in stable condition. In supine position on the operating table, the patient received general anesthesia followed by nasoendotracheal intubation without incident. The patient prepped and draped in the usual sterile manner for the procedure. The dental block was placed to maintain opening of the oral cavity. The tongue was then retracted anteriorly and rightward to expose the left lateral oral tongue. The previous excised area was identified via palpation as well as visualization. The proposed excision area was then outlined and then infiltrated with 1% lidocaine with 1:100,000 epinephrine. Incision was then made sharply using the #15 scalpel. A depth of 0.5 cm was achieved. The specimen measured 2 cm in horizontal plane and 1.5 cm in vertical plane. The specimen was then excised en bloc and marked. The margins were obtained and sent for frozen section which were reported to be negative for malignancy. Hemostasis was achieved. The wound closure was achieved via primary closure with horizontal mattress sutures. At the end of the procedure, sponge and instrument counts were correct. There were no complications identified. Estimated blood loss was less than 5 mL. General anesthesia was reversed and the patient was extubated and brought to the recovery room in stable condition.
== END 2019-11-21 13:54 | disposition home or self-care (01) ==
LOC: M SDC 07:18
PROVIDERS: ATTEND Otolaryngology
DX: D00.07 Carcinoma in situ of tongue (principal); K58.8 Other irritable bowel syndrome; K21.9 Gastro-esophageal reflux disease without esophagitis; L40.8 Other psoriasis; E66.01 Morbid (severe) obesity due to excess calories; M81.0 Age-related osteoporosis without current pathological fracture; Z79.899 Other long term (current) drug therapy; K44.9 Diaphragmatic hernia without obstruction or gangrene; K57.80 Diverticulitis of intestine, part unspecified, with perforation and abscess without bleeding; K90.0 Celiac disease; Z88.0 Allergy status to penicillin; Z88.2 Allergy status to sulfonamides; Z88.8 Allergy status to other drugs, medicaments and biological substances; Z91.041 Radiographic dye allergy status
CPT/HCPCS: 41112; 88305; 88309; 88331; J0131; J1100; J1200; J1885; J2250; J2270; J2370; J2405; J3010

== ENCOUNTER → 2020-06-13 | Outpatient (REF) | payer MEDICARE ==
[~2020-06-13] MED LIST changes: +D31000TA2 PO; -LIDOCAINE 2% 100MG/5ML SDV (FOR ANES.) As Ordered ONE; -LR 1,000 ML IV ONE; -MIDAZOLAM INJ 2MG/2ML VIAL (J2250 PER 1MG) As Ordered ONE; -ONDANSETRON 4MG/2ML VIAL As Ordered ONE; +PANT40TA29; -PANT40TA3; -ROCURONIUM BROMIDE 50 MG/5 ML VIAL As Ordered ONE; -VITAD1000T PO; +[UNRECOGNIZED DRUG - OTHER] PO; -dexameTHASONE 4 MG/ML 1ML VIAL (J1100 PER 1MG) As Ordered ONE; -dexameTHASONE 4 MG/ML 1ML VIAL (J1100 PER 1MG) IV ONE; -fentaNYL 100 MCG/2 ML INJECTION (J3010) As Ordered ONE; -propofoL 200 MG/20 ML VIAL As Ordered ONE
== END ==
LOC: M LAB REF 16:54
PROVIDERS: ATTEND Physician Assistant
DX: R30.0 Dysuria (principal)

== ENCOUNTER → 2020-08-06 | Outpatient (CLI) | payer MEDICARE ==
--- NOTE | 2020-08-06 12:34 | REPMRS ---
Patient History The patient states she had a clinical breast exam in July 2020.Family history of colorectal cancer at age 68 in mother, endometrial cancer at age 40 in paternal aunt. Took estrogen for 5 years. Took progesterone for 5 years. 3D TOMOSYNTHESIS WAS PERFORMED. The Malika Lewis lifetime risk for breast cancer is 7.9%. Vol[place] breast density a. Digital Woman Screen Mammo: August 06, 2020 - Exam #: [id number] Bilateral CC and MLO view(s) were taken. Technologist: Gloria Verdin, Technologist Prior study comparison: May 11, 2019, bilateral digital mammo screening bilat, performed at [facility]. May 10, 2018, bilateral digital mammo screening bilat, performed at [facility]. FINDINGS: There are scattered fibroglandular densities. There has been no change in the appearance of the mammogram from the prior studies. There is a mild amount of residual fibroglandular tissue which is fairly symmetric. There is no interval development of dominant mass, architectural distortion, or clustered microcalcification suggestive of malignancy. Assessment: BI-RADS/ACR category 1 mammogram. Negative Mammogram. Recommendation Routine screening mammogram in 1 year (for women over age 40). This mammogram was interpreted with the aid of an FDA-approved computer-aided dectection system. Electronically Signed By: Mark Chamberlain MD 08/06/20 [id number]
== END ==
LOC: M WHC 10:10
PROVIDERS: ATTEND Advanced Practice Midwife
DX: Z01.419 Encounter for gynecological examination (general) (routine) without abnormal findings (principal); Z12.31 Encounter for screening mammogram for malignant neoplasm of breast; Z80.0 Family history of malignant neoplasm of digestive organs; Z92.23 Personal history of estrogen therapy; Z92.29 Personal history of other drug therapy
CPT/HCPCS: 77063; 77067; G0101

== ENCOUNTER → 2020-09-17 | Outpatient (CLI) | payer MEDICARE ==
[2020-09-17 10:51] LABS: BASO % 0.5 % (0.0-1.0); EOS # 0.1 10^3/uL (0.0-0.5); EOS % 1.6 % (0.0-3.0); HEMATOCRIT 40.7 % (36.0-47.0); HEMOGLOBIN 12.5 g/dl (12.0-15.5); LYMPH # 2.1 10^3/uL (1.5-5.0); MEAN CORPUSCULAR HEMOGLOBIN 28.7 pg (27.0-33.0); MEAN CORPUSCULAR HGB CONC 30.7 g/dl (32.0-36.5); MEAN CORPUSCULAR VOLUME 93.3 fl (80.0-96.0); MONO # 0.3 10^3/uL (0.0-0.8); MONO % 7.7 % (2.0-8.0); NEUTROPHILS # 1.9 10^3/uL (1.5-8.5); PLATELET COUNT, AUTOMATED 205 10^3/uL (150-450); RED BLOOD COUNT 4.36 10^6/uL (4.00-5.40); WHITE BLOOD COUNT 4.4 10^3/uL (4.0-10.0)
[2020-09-17 11:29] LABS: ALBUMIN 4.1 GM/DL (3.2-5.2); BILIRUBIN,TOTAL 0.5 MG/DL (0.2-1.0); CALCIUM LEVEL 9.3 MG/DL (8.8-10.2); CHOLESTEROL RISK RATIO 3.566 (<5); FREE T4 0.88 NG/DL (0.76-1.46); GLOMERULAR FILTRATION RATE 58.2 (>39); POTASSIUM SERUM 4.4 MEQ/L (3.5-5.1); THYROID STIMULATING HORMONE 1.25 uIU/ML (0.358-3.740); TOTAL PROTEIN 7.7 GM/DL (6.4-8.2)
== END ==
LOC: M LAB 09:54
PROVIDERS: ATTEND Family Medicine
DX: K21.9 Gastro-esophageal reflux disease without esophagitis (principal); E78.00 Pure hypercholesterolemia, unspecified

== ENCOUNTER → 2020-10-01 | Outpatient (CLI) | payer MEDICARE ==
--- NOTE | 2020-10-01 13:27 | REP ---
INDICATION: PAIN IN RIGHT KNEE COMPARISON: 08/23/2015. TECHNIQUE: Five views right knee. FINDINGS: There is no evidence of acute fracture, dislocation, or intrinsic bone disease.There is mild medial joint space narrowing. There is mild lateral patellofemoral compartment narrowing with mild spurring and subchondral sclerosis. There is no joint effusion. IMPRESSION: No fracture or dislocation. Mild degenerative changes. <Electronically signed by Mark Chamberlain > 10/01/20 [id number]
--- NOTE | 2020-10-01 13:40 | REP ---
INDICATION: RT KNEE SWELLING BEHIND KNEE ? ERIC CYST. COMPARISON: None. TECHNIQUE: Real-time sonographic evaluation of right popliteal fossa performed. FINDINGS: The popliteal vein is patent with no internal thrombus and normal internal blood flow. There is a cyst laterally in the popliteal fossa which measures 2.8 x 1.2 x 1.8 cm. IMPRESSION: Lateral popliteal cyst 2.8 x 1.2 x 1.8 cm. <Electronically signed by Mark Chamberlain > 10/01/20 [id number]
== END ==
LOC: M RAD 12:57
PROVIDERS: ATTEND Physician Assistant
DX: M71.21 Synovial cyst of popliteal space [Baker], right knee (principal); M25.561 Pain in right knee

== ENCOUNTER → 2020-10-10 | Outpatient (REF) | payer MEDICARE | LOC: M LAB REF 16:41 | PROVIDERS: ATTEND Physician Assistant | DX: N39.0 Urinary tract infection, site not specified (principal) ==

== ENCOUNTER → 2020-12-07 | Outpatient (CLI) | payer MEDICARE ==
[2020-12-07 09:07] LABS: BASO % 0.3 % (0.0-1.0); EOS # 0.1 10^3/uL (0.0-0.5); EOS % 2.8 % (0.0-3.0); HEMATOCRIT 44.6 % (36.0-47.0); HEMOGLOBIN 13.8 g/dl (12.0-15.5); MEAN CORPUSCULAR HEMOGLOBIN 28.5 pg (27.0-33.0); MEAN CORPUSCULAR HGB CONC 30.9 g/dl (32.0-36.5); MONO # 0.3 10^3/uL (0.0-0.8); MONO % 8.3 % (2.0-8.0); NEUTROPHILS # 1.5 10^3/uL (1.5-8.5); NEUTROPHILS % 38.3 % (36.0-66.0); PLATELET COUNT, AUTOMATED 196 10^3/uL (150-450); RED BLOOD COUNT 4.85 10^6/uL (4.00-5.40)
[2020-12-07 09:46] LABS: ALBUMIN 4.1 GM/DL (3.2-5.2); BILIRUBIN,TOTAL 0.5 MG/DL (0.2-1.0); CALCIUM LEVEL 9.7 MG/DL (8.8-10.2); CHOLESTEROL RISK RATIO 4.372 (<5); CREATININE FOR GFR 0.98 MG/DL (0.55-1.30); GLOMERULAR FILTRATION RATE 59.4 (>39); POTASSIUM SERUM 4.5 MEQ/L (3.5-5.1)
== END ==
LOC: M LAB 07:56
PROVIDERS: ATTEND Family Medicine
DX: K21.9 Gastro-esophageal reflux disease without esophagitis (principal); E78.00 Pure hypercholesterolemia, unspecified

== ENCOUNTER → 2021-02-13 | Outpatient (REF) | payer MEDICARE | LOC: M LAB REF 16:46 | PROVIDERS: ATTEND Physician Assistant | DX: N39.0 Urinary tract infection, site not specified (principal) ==

== ENCOUNTER → 2021-02-28 | Outpatient (CLI) | payer MEDICARE ==
[~2021-02-28] MED LIST changes: +E-Z-GAS II EFFERVESCENT PACKET (SODIUM BICARB./CITRIC ACID/SIMETHICONE) As Ordered ONE; +E-Z-HD 98% w/w 340GM SUSP BTL As Ordered ONE; +E-Z-PAQUE 96% w/w SUSP 176GM BTL As Ordered ONE
--- NOTE | 2021-02-28 17:18 | REP ---
INDICATION: DYSPHAGIA. COMPARISON: None. TECHNIQUE: The procedure was performed under the direct supervision of Dr. Chamberlain. The images were reviewed with Dr. Chamberlain. Liquid barium and gas producing crystals were given in the erect position as well as liquid barium in the prone oblique position in order to perform a double contrast esophagram and upper GI examination. A combination of fluoroscopy, spot films and last image hold technology was utilized. 2 minutes of fluoro time was utilized for this procedure. FINDINGS: The heavy equipment sales manager film shows no organomegaly or pathological masses. The intestinal gas pattern is non-specific. The oral and pharyngeal stages of deglutition are unremarkable. Esophageal transport is prompt and efficient and there is no esophagitis, stricture, mucosal ring or hiatal hernia. Gastroesophageal reflux is not demonstrated on this examination. Within the stomach there are multiple polyps with the largest measuring 1 cm. Consider endoscopy for further evaluation. Within the duodenum there are thickened folds which may represent duodenitis. There is no mel ulcer identified. The visualized portion of the proximal small bowel appears normal in course and caliber. IMPRESSION: 1. There are multiple polyps in the stomach, the largest of which measures 1 cm. Consider endoscopy for further evaluation. 2. There are thickened folds in the duodenum which may represent duodenitis. There is no mel ulcer identified. . <Electronically signed by Shawn De La Garza > 02/28/21 1516 <Electronically signed by Mark Chamberlain > 02/28/21 [id number]
== END ==
LOC: M RAD 08:23
PROVIDERS: ATTEND Physician Assistant
DX: R47.02 Dysphasia (principal); K31.7 Polyp of stomach and duodenum; K31.89 Other diseases of stomach and duodenum

== ENCOUNTER → 2021-03-09 | Outpatient (CLI) | payer MEDICARE ==
[~2021-03-09] MED LIST changes: +COLA100C5 PO; -E-Z-GAS II EFFERVESCENT PACKET (SODIUM BICARB./CITRIC ACID/SIMETHICONE) As Ordered ONE; -E-Z-HD 98% w/w 340GM SUSP BTL As Ordered ONE; -E-Z-PAQUE 96% w/w SUSP 176GM BTL As Ordered ONE; +FAMO20TA PO; +VITA400T26 PO
== END ==
LOC: M LABSMTC 10:33
PROVIDERS: ATTEND Anesthesiology
DX: Z01.812 Encounter for preprocedural laboratory examination (principal); Z20.822 Contact with and (suspected) exposure to COVID-19

== ENCOUNTER 2021-03-14 09:22 | Day surgery (SDC) | payer MEDICARE ==
[~2021-03-14] VITALS: Ht 152.4 cm; Wt 88.4 kg
[~2021-03-14 09:22] MED LIST changes: +LR 1,000 ML IV ONE; +dexameTHASONE 4 MG/ML 1ML VIAL (J1100 PER 1MG) IV ONE
[2021-03-14] MEDS ORDERED: dexameTHASONE 4 MG/ML 1ML VIAL (J1100 PER 1MG) As Ordered ONE (12:10)
[2021-03-14] MEDS ORDERED: KETOROLAC 60MG 2ML VIAL As Ordered ONE (12:10)
[2021-03-14] MEDS ORDERED: propofoL 200 MG/20 ML VIAL As Ordered ONE (12:10)
[2021-03-14] MEDS ORDERED: ONDANSETRON 4MG/2ML VIAL As Ordered ONE (12:10)
[2021-03-14] MEDS ORDERED: MIDAZOLAM INJ 2MG/2ML VIAL (J2250 PER 1MG) As Ordered ONE (12:10)
[2021-03-14] MEDS ORDERED: ROCURONIUM BROMIDE 50 MG/5 ML VIAL As Ordered ONE (12:10)
[2021-03-14] MEDS ORDERED: LIDOCAINE 2% 100MG/5ML SDV (FOR ANES.) As Ordered ONE (12:10)
[2021-03-14] MEDS ORDERED: SUGAMMADEX SODIUM 500 MG/5 ML VIAL (BRIDION) As Ordered ONE (12:10)
[2021-03-14] MEDS ORDERED: fentaNYL 100 MCG/2 ML INJECTION (J3010) As Ordered ONE (12:11)
[2021-03-14] MEDS ORDERED: LIDOCAINE W/EPINEPHRINE 1% 20ML VIAL As Ordered ONE (12:22)
[2021-03-14] MEDS ORDERED: OXYMETAZOLINE 0.05% NASAL SPRAY (AFRIN) As Ordered ONE (12:44)
[2021-03-14] MEDS ORDERED: fentaNYL 100 MCG/2 ML INJECTION (J3010) IV PRN (14:05)
[2021-03-14] MEDS ORDERED: LR 1,000 ML IV SCH ×2 (14:05)
[2021-03-14] MEDS ORDERED: METOCLOPRAMIDE INJ 10MG/2ML VIAL (J2765 PER 1) IV PRN (14:05)
[2021-03-14] MEDS ORDERED: NORCO, ANEXSIA 5/325MG TABLET (HYDROcodone/ACETAMINOPHEN) PO PRN (14:05)
[2021-03-14] MEDS ORDERED: ONDANSETRON 4MG/2ML VIAL IV PRN (14:05)
[2021-03-14 14:35] VITALS: BP 132/60
--- NOTE | 2021-03-26 17:24 | RO ---
OPERATIVE NOTE DATE OF OPERATION: 03/14/2021 PREOPERATIVE DIAGNOSIS: Leukoplakia, left lateral oral tongue. POSTOPERATIVE DIAGNOSIS: Leukoplakia, left lateral oral tongue. PROCEDURE PERFORMED: Biopsy of the left lateral oral tongue, leukoplakia. SURGEON: Skip Fleming MD IMPREGNATING TANK OPERATOR: ANESTHESIA: General with nasotracheal intubation. 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 CT scan confirmed presence of new leukoplakia on the posterior mid-third of the lateral oral tongue. Management options including biopsy of the lesion under general anesthesia have been discussed. The patient understood and consented to the procedure. OR NARRATION: The patient was identified in preholding and brought to the operating room in stable condition. In supine position on the operating table, the patient received general anesthesia followed by nasotracheal intubation without incident. The patient was prepped and draped in the usual fashion for the procedure. The tongue was retracted rightward to expose the left lateral oral tongue to allow good visualization of the new leukoplakia on the posterior aspect of the mid-third of the left oral tongue. A 5 mm punch biopsy was used to biopsy the leukoplakia site on the left lateral oral tongue. Hemostasis was achieved and the site was then sutured closed using 3-0 Chromic suture. Complete hemostasis was observed at the end of the case. Estimated blood loss was less than 1 mL. General anesthesia was reversed and the patient was extubated and brought to the recovery room in stable condition.
== END 2021-03-14 15:30 | disposition home or self-care (01) ==
LOC: M SDC 09:22
PROVIDERS: ATTEND Otolaryngology
DX: 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, including tongue (principal); K21.9 Gastro-esophageal reflux disease without esophagitis; K57.90 Diverticulosis of intestine, part unspecified, without perforation or abscess without bleeding; K44.9 Diaphragmatic hernia without obstruction or gangrene; F41.1 Generalized anxiety disorder; M81.0 Age-related osteoporosis without current pathological fracture; Z91.041 Radiographic dye allergy status; Z88.0 Allergy status to penicillin; Z91.018 Allergy to other foods; Z88.1 Allergy status to other antibiotic agents; Z88.8 Allergy status to other drugs, medicaments and biological substances; Z88.5 Allergy status to narcotic agent; K58.1 Irritable bowel syndrome with constipation; I45.81 Long QT syndrome; Z88.2 Allergy status to sulfonamides
CPT/HCPCS: 41100; 88305; J1100; J1885; J2250; J2405; J3010

== ENCOUNTER → 2021-05-15 | Outpatient (CLI) | payer MEDICARE ==
[~2021-05-15] MED LIST changes: +CVS500CA5 PO; +EQL0.65S; +HAIRTAB10 PO; -LR 1,000 ML IV ONE; +MIRA3350 PO; +OLOP2.5D3 OU; -dexameTHASONE 4 MG/ML 1ML VIAL (J1100 PER 1MG) IV ONE
== END ==
LOC: M LABSMTC 09:51
PROVIDERS: ATTEND Anesthesiology
DX: Z01.812 Encounter for preprocedural laboratory examination (principal); Z20.822 Contact with and (suspected) exposure to COVID-19

== ENCOUNTER 2021-05-20 07:49 | Day surgery (SDC) | payer MEDICARE ==
[~2021-05-20] VITALS: Ht 152.4 cm; Wt 86.2 kg
[~2021-05-20 07:49] MED LIST changes: +NS 1,000 ML IV ONE
--- OUTSIDE RECORDS SUMMARY | 2021-05-20 07:53 | CCD | Continuity of Care Document ---
Author Author Alix FLEMING MD Organization Unknown Address [address] [facility] [address] [place] [address] Phone [phone] Care Team Providers Care Solar Installation Supervisor Name Role Phone Abdoulaye Lockett D.M.D. AUTM [phone] Hollie Jordan D.O. 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 Social History Type Date Description Comments Sex Unknown ETOH Use Denies alcohol use Recreational Drug Use Denies Drug Use Tobacco Use Start: Unknown Non Smoker Exercise Type/Frequency Occasional Mild Exercise Allergies, Adverse Reactions, Alerts Active Allergies Criticality Reaction | Severity Comments Date Erythromycin Unable to assess criticality Rash, Upset Stomach, Diarrhea 01/11/2016 Sulfa Unable to assess criticality Itchy Rash 01/11/2016 Penicillin Unable to assess criticality Itching And Rash 01/11/2016 Macrobid Unable to assess criticality Itching And Rash 01/11/2016 Tetracycline Unable to assess criticality Itching And Rash 01/11/2016 Oxycodone Unable to assess criticality Itc larry And Rash Around Neck And Upper Chest 01/11/2016 Lidocaine Unable to assess criticality Backache For Several Days 01/11/2016 IVP Dye Unable to assess criticality | Severe 01/11/2016 Gluten Unable to assess criticality Dermatitis H erpetiformis 01/11/2016 Novocet Lotion Unable to assess criticality 01/11/2016 Konofed Balta JR Unable to assess criticality 01/11/2016 Prebenzaminu Unable to assess criticality 01/11/2016 Retin A Creams Unable to assess criticality 01/11/2016 Sedane Unable to assess criticality 01/11/2016 Tavist Unable to assess criticality Itching And Rash 01/11/2016 Chlorahexidine Rinse Unable to assess criticality Mout h Burning 05/22/2020 Medications Active Medications SIG Qnty Indications Ordering Provide r Date Hydrocodone Bitartrate/Acetaminophen 5-325mg Tablets take 1 tablet by mouth every 6 hours as needed for pain 20tabs Skip Fleming MD 03/15/2021 Chlorhexidine Gluconate 0.12% Solu tion 15 milliliters by mouth swish and spit three times a day for 7 days 473ml K13.21 Skip Fleming MD 03/14/2021 Magic Mouthwash Unknown 0 Prednisolone Acetate 1% Suspension Instill 1 Drop In Both Eyes Two Times A Day For 2 Weeks Then Once Daily For 2 Weeks Then Stop Unknown Magnesium Unknown Flonase Allergy Relief 50mcg/Act Suspension 2 sprays each nares just before bed for 30 days Unknown Estroven Tablets Qohs Unknown Leutein 6mg 1 qd Unknown Alprazolam 0.25mg Tablets Unknown Alamay 1 drop each eye 3-4 times daily Unkn own Fish Oil 1200mg Capsules DR 2 daily Unknown Restasis 0.05% Emulsion Unknown Vitamin E 400Unit Capsules 1 by mouth every day Unknown Vitamin B-12 1000mcg Tablets Sub daily Unknown Vitamin D3 Maximum Strength 5000Unit Capsules Daily Unknown Calcium + D Chewtabs 2 by mouth every day Unknown Probiotic Daily Capsules Unknown Metamucil Capsules daily Unknown Dapsone 25mg Tablets Unknown Protonix 40mg Tablets DR 1 by mouth every day Unknown Topamax 25mg Tablets 1 by mouth every day Unknown Immunizations Description No Information Available Vital Signs Date Vital Result Comment 03/19/2021 1:44pm Height 60 inches 5'0" Weight 194.00 lb BMI (Body Mass Index) 37.9 kg/m2 [place] Body Weight 100 lb Weight 87.998 kg BSA (Body Surface Area) 1.84 m2 02/13/2021 8:40am Height 60 inches 5'0" Weight 218.00 lb BMI (Body Mass Index) 42.6 kg/m2 [place] Body Weight 100 lb Weight 98.885 kg BSA (Body Surface Area) 1.94 m2 Results Test Acquired Date Facility Test Result H/L Range Note Laboratory test finding 03/14/2021 [facility] [address] [place] [address] [phone] Pathology Request For Service (SEE NOTE) 1 1 FINAL DIAGNOSIS Tongue, left lateral, biopsy: Hyperkeratotic squamous mucosa with chronic inflammation, consistent with leukoplakia. No evidence for malignancy. 03/18/2021 - 110 CLINICAL DIAGNOSIS Leukoplakia left oral tongue 03/15/2021 - 1320 GROSS DIAGNOSIS Received in formalin labeled "biopsy left lateral tongue" and consists of one fragment of land tissue measuring 0.5 x 0.5 x 0.3 cm. All in one. -SVY 03/15/2021 - 1320 Signed ARMIDA ALLEN MD 03/18/2021 1103 Procedures Date Code Description Status 02/13/2021 54115 Office/Outpatient Established Mo d MDM 30-39 Min Completed 11/20/2020 [id number] Office/Outpatient Established Lo w MDM 20-29 Min Completed 05/11/2019 [id number] Mammogram Completed 05/10/2018 [id number] Mammogram Completed 04/21/2017 [id number] Mammogram Completed 04/16/2016 [id number] Mammogram Completed Medical Devices Description No Information Available Encounters Type Date Location Provider Dx Diagnosis Office Visit 11/20/2020 9:15a [facility] Skip Fleming MD 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, including tongue J31.0 Chronic rhinitis Assessments Date Code Description Provider 03/19/2021 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, incl uding tongue Skip Fleming MD 02/13/2021 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, incl uding tongue Skip Fleming MD 11/20/2020 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, incl uding tongue Skip Fleming MD 11/20/2020 J31.0 Chronic rhinitis Skip Fleming MD Plan of Treatment Future Appointment(s):* 05/28/2021 9:30 am - Skip Fleming MD at [facility] 03/19/2021 - Skip Fleming MD* 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
--- OUTSIDE RECORDS SUMMARY | 2021-05-20 07:53 | CCD | Continuity of Care Document ---
Author Author Alix WOODY PA Organization [place] [address] Phone [phone] Care Team Providers Care Dry Mill Operator Name Role Phone Hollie Jordan D.O. AUTM Skip Fleming M.D. AUTM [phone] Reno Ibarra M.D. AUTM Jose Daniel Bey M.D. AUTM [phone] Problems Active Problems Provider Date Irritable bowel syndrome Hollie Jordan D.O. Onset: 08/13/2015 Gastroesophageal reflux disease Hollie Jordan D.O. O nset: 06/13/2016 Celiac disease Hollie Jordan D.O. Onset: 2015 Dermatitis herpetiformis Hollie Jordan D.O. Onset: 08/13/2015 Migraine without aura, not refractory Hollie Jordan D.O. Onset: 06/13/2016 Tear film insufficiency Hollie Jordan D.O. Onset: Acute stress disorder Hollie Jordan D.O. Onset: 05/27 Morbid obesity Hollie Jordan D.O. Onset: 2015 Body mass index 40+ - severely obese Frantz Meza Onset: 06/13/2016 Osteochondropathy Hollie Jordan D.O. Onset: 2015 Adult health examination Hollie Jordan D.O. Onset: 08/15/2016 Pure hypercholesterolemia Hollie Jordan D.O. Onset: 12/14/2017 Impaired fasting glycemia Hollie Jordan D.O. Onset: 12/14/2017 Irritable bowel syndrome characterized by constipation KELLY Singh Onset: 03/31/2019 Leukoplakia of oral mucosa KELLY Fajardo Onset: 2019 Generalized anxiety disorder KELLY Fajardo Onset: 05/27 Social History Type Date Description Comments Sex Unknown ETOH Use Denies alcohol use Tobacco Use Start: Unknown Patient has never smoked Recreational Drug Use Denies Drug Use Smoking Status Reviewed: 09/13/20 Patient has never smoked Exercise Type/Frequency Walks daily Sun Exposure Uses sunscreen Seat Belt/Car Seat Always uses seat belt Allergies, Adverse Reactions, Alerts Active Allergies Criticality Reaction | Severity Comments Date Erythromycin Unable to assess criticality Nausea and Vomiting, Urti caria 06/10/2016 Sulfa Unable to assess criticality Urticaria 06/10/2016 Penicillin Unable to assess criticality Urticaria 06/10/2016 Macrobid Unable to assess criticality Urticaria 06/10/2016 Tetracycline Unable to assess criticality Urticaria 06/10/2016 Novocet Lotion Unable to assess criticality Urticaria 06/10/2016 Konofed A JR Unable to assess criticality Urticaria 06/10/2016 Prebenzaminu Unable to assess criticality Urticaria 06/10/2016 Retin-A Unable to assess criticality Urticaria 06/10/2016 Seldane Unable to assess criticality Urticaria 06/10/2016 Tavist Unable to assess criticality Urticaria 06/10/2016 Lidocaine Unable to assess criticality backache for several days 06/10/2016 IVP Dyes Unable to assess criticality | Severe 06/10/2016 Gluten Unable to assess criticality 06/10/2016 Medications Active Medications SIG Qnty Indications Ordering Provide r Date Mouthwash-Om Liquid lidocaine:maalox:benadryl in 1:1:1, 15 milliliters every 8 hours as needed for pain, gargle and spit 480ml R47.02 Hollie Jordan D.O. 01/22/2021 Famotidine 40mg Tablets take 1 tab by mouth daily as needed for heartburn. 90tabs Reno CarrilloOSundar 07/18/2019 Magnesium 300mg Capsules Reno MezaOSundar 05/18/2019 Topiramate 25mg Tablets Take 2 Tablets Nightly If Needed 360tabs Reno MezaOSundar Pantoprazole Sodium 40mg Tablets D R take 1 tablet daily 90tabs Reno MezaOSundar 03/02 Colace 100mg Capsules 1 by mouth every day 90caps K58.2 Reno MezaOSundar 12/14 Miralax 3350NF Packet 17g packet daily until successful bowel movement 36units K58.2 Reno BishopOSundar 12/14/2018 Estroven Nighttime Tablets Unknown Restasis 0.05% Emulsion 1 drop in each eye 3-4 times a day Unknown Leutein 6mg 1 tablet by mout h daily Unknown Alamay Solution 1-2 drops in each eye 4 times a day Unknown Flonase Allergy Relief 50mcg/Act Suspension 2 sprays in each nostril every other day Unknown Melatonin 5mg Capsules one tablet at night as needed Unknown Hair Skin Nails Capsules Unknown Saline Nasal Whately 0.65% Solution 1 spray each nostril three times a day Unknown 0 Cranberry Extract 250mg Tablets Unknown Cane Misc pleas e dispense 1 cane dx: m54.15 prognosis: fair duration: 99 M25.561 Unknown M23.8x1 Fish Oil 1200mg Capsules DR 2 by mouth every day Unknown Eye Drops 0.05% Solution u ses as needed Unknown Dapsone 25mg Tablets 1 cap by mouth daily Unknown Vitamin E 400Unit Capsules 2 caps by mouth daily Unknown Vitamin B-12 ER 1000mcg Tablets ER one tablet by mouth once a day Unknown Vitamin D3 Maximum Strength 5000Unit Capsules 1 cap by mouth daiy Unknown 00 Calcium 1000 + D [id number] T ablets 1 tab by mouth daily Unknown Probiotic Capsules 1 caps by mouth at night with meal or after Unknown Metamucil Smooth Texture Fiber Singles 28% Packet use at night with meal or after Unknown Alprazolam 0.25mg Tablets 1-2 tablets by mouth every 12 hours as needed for anxiety. istop: [id number] 120tabs Reno MezaO. History Medications Cephalexin 500mg Capsules 1 tab by mouth three times a day until gone 21caps Frantz Olivera.O. 02/16/2021 - 03/08/2021 Medications Administered in Office Medication SIG Qnty Indications Ordering Provider Date Immunization Administration Single Or Co mbination Injection Nurse 05/18/2019 Immunizations CPT Code Status Date Vaccine Lot # U-Pneum Given 04/26/2020 Pneumococcal,Unspecified U-Flu Given 05/18/2019 Influenza,Unspecified [id number] Given 05/18/2019 Pneumococcal Con jugate Vaccine 13 Valent For Intramuscular Use [id number] U-Flu Given 04/23/2018 Influenza,Unspecified Vital Signs Date Vital Result Comment 04/17/2021 9:40am BP Systolic 126 mmHg BP Diastolic 80 mmHg Height 60.1 inches 5'0.10" Weight 190.00 lb BMI (Body Mass Index) 37.0 kg/m2 Heart Rate 59 /min Respiratory Rate 18 /min Body Temperature 97.4 F O2 % BldC Oximetry 99 % [place] Body Weight 100 lb 03/08/2021 10:16am BP Systolic 126 mmHg BP Diastolic 82 mmHg Height 60.1 inches 5'0.10" Weight 193.25 lb BMI (Body Mass Index) 37.6 kg/m2 Heart Rate 95 /min Respiratory Rate 18 /min Body Temperature 98.1 F O2 % BldC Oximetry 96 % [place] Body Weight 100 lb Results Test Acquired Date Facility Test Result H/L Range Note Order 03/08/2021 In House Orders EKG see result in chart Inhouse Ua 02/13/2021 Inhouse Inhouse Leukocytes Trace Inhouse Nitrite Negative Inhouse Urobilinogen trace Inhouse Protein Positive Inhouse PH 7 Inhouse Hemoglobin negative Inhouse Specific [place] 1.005 Inhouse Ketones negative Inhouse Bilirubin negative Inhouse Glucose negative Laboratory test finding 02/13/2021 [facility] Outpatient T esting (Registration) [address] [place] [address] [phone] Urine Culture FULL REPORT IN L <SEE NOTE> Normal 1 Genital Culture FULL REPORT IN L <SEE NOTE> Normal 2 CBC With Differential 12/07/2020 [facility] Outpatient Negrita ting (Registration) [address] [place] [address] [phone] White Blood Count 4.0 10 Normal 4.0-10.0 Red Blood Count 4.85 10 Normal 4.00-5.40 Hemoglobin 13.8 g/dL Normal 12.0-15.5 Hematocrit 44.6 % Normal 36.0-47.0 Mean Corpuscular Volume 92.0 fl Normal 80.0-96.0 Mean Corpuscular Hemoglobin 28.5 pg Normal 27.0-33.0 Mean Corpuscular HGB Conc 30.9 g/dL Low 32.0-36.5 Red Cell Distribution Width 13.9 % Normal 11.5-14.5 Platelet Count, Automated 196 10 Normal 150-450 Neutrophils % 38.3 % Normal 36.0-66.0 Lymph % 50.0 % High 24.0-44.0 [place] % 8.3 % High 2.0-8.0 Eos % 2.8 % Normal 0.0-3.0 Baso % 0.3 % Normal 0.0-1.0 Immature Granulocyte % 0.3 % Normal 0-3.0 Nucleated Red Blood Cell % 0.0 % Normal 0-0 Neutrophils # 1.5 10 Normal 1.5-8.5 Lymph # 2.0 10 Normal 1.5-5.0 [place] # 0.3 10 Normal 0.0-0.8 Eos # 0.1 10 Normal 0.0-0.5 Baso # 0.0 10 Normal 0.0-0.2 Comprehensive Metabolic Profil 12/07/2020 [facility] Outpa tient Testing (Registration) [address] [place] [address] [phone] Glucose, Fasting 107 mg/dL High 70-100 Blood Urea Nitrogen 13 mg/dL Normal 7-18 Creatinine For GFR 0.98 mg/dL Normal 0.55-1.30 Glomerular Filtration Rate 59.4 Normal >39 3 Sodium Level 141 mEq/L Normal 136-145 Potassium Serum 4.5 mEq/L Normal 3.5-5.1 Chloride Level 109 mEq/L High 98-107 Carbon Dioxide Level 27 mEq/L Normal 21-32 Anion Gap 5 mEq/L Low 8-16 Calcium Level 9.7 mg/dL Normal 8.8-10.2 Ast/Sgot 32 U/L Normal 7-37 Alt/SGPT 44 U/L Normal 12-78 Alkaline Phosphatase 93 U/L Normal 45-117 Bilirubin,Total 0.5 mg/dL Normal 0.2-1.0 Total Protein 8.0 GM/DL Normal 6.4-8.2 Albumin 4.1 GM/DL Normal 3.2-5.2 Albumin/Globulin Ratio 1.1 Low 1.2-2.2 Lipid Panel 12/07/2020 [facility] Outpatient Testi (Registration) [address] [place], [place] [id number] [phone] Triglycerides Level 195 mg/dL High <150 Cholesterol Level 188 mg/dL Normal <200 HDL Cholesterol 43 mg/dL Normal >40 LDL Cholesterol 106 mg/dL High <100 Non-HDL-C 145 mg/dL Normal Cholesterol Risk Ratio 4.372 Normal <5 1 FULL REPORT IN LAB NOTES (Masoud Bowers and Sara). ORGANISM 1: KLEBSIELLA PNEUMONIAE COLONY COUNT >100,000 ORGANISM 1: KLEBSIELLA PNEUMONIAE KLEBSIELLA PNEUMONIAE: REACTION TRIMETHOPRIM/SULFAMETHOXAZOLE IV 160mg TMP & 800mg SMXq6h <=20 S TRIMETHOPRIM/SULFAMETHOXAZOLE PO Bactrim DS Bid <=20 S AMPICILLIN IV 500mg q6h >=32 R AMPICILLIN PO 500mg q6h fasting >=32 R GENTAMICIN IV 80mg q8h <=1 S NITROFURANTOIN PO 100mg BID 128 R CEFAZOLIN IV 1gm q8h <=4 S LEVOFLOXACIN IV 500mg qd <=0.12 S LEVOFLOXACIN PO 250mg qd <=0.12 S LEVOFLOXACIN PO 500mg qd <=0.12 S TOBRAMYCIN IV 80mg q8h <=1 S CEFTRIAXONE IV 1gm q24h <=1 S CEFTAZIDIME IV 1gm q8h <=1 S AMPICILLIN/SULBACTAM IV 1.5g q6h 8 S PIPERACILLIN/TAZOBACTAM IV 2.25 gm q6h <=4 S AZTREONAM IV 1gm q8h <=1 S ERTAPENEM IV 1gm qd <=0.5 S MEROPENEM IV 1 gm q8h <=0.25 S MEROPENEM IV 500 mg q8h <=0.25 S TIGECYCLINE IV 50mg q12h 1 S CEFEPIME IV 1 gm q12h <=1 S CEFEPIME IV 2 gm q12h <=1 S EXTD BRD SPCTRM BETA LACTAMASE IV NEGATIVE FOR ESBL 2 FULL REPORT IN LAB NOTES (eC W and [facility]). NORMAL ARUNA PRESENT ORGANISM 1: PROTEUS MIRABILIS QUANTITY OF GROWTH MODERATE ORGANISM 2: KLEBSIELLA PNEUMONIAE QUANTITY OF GROWTH HEAVY ORGANISM 3: ESCHERICHIA COLI QUANTITY OF GROWTH HEAVY ORGANISM 1: PROTEUS MIRABILIS ORGANISM 2: KLEBSIELLA PNEUMONIAE ORGANISM 3: ESCHERICHIA COLI PROTEUS MIRABILIS: REACTION TRIMETHOPRIM/SULFAMETHOXAZOLE IV 160mg TMP & 800mg SMXq6h <=20 S TRIMETHOPRIM/SULFAMETHOXAZOLE PO Bactrim DS Bid <=20 S AMPICILLIN IV 500mg q6h <=2 S AMPICILLIN PO 500mg q6h fasting <=2 S GENTAMICIN IV 80mg q8h <=1 S CEFAZOLIN IV 1gm q8h <=4 S LEVOFLOXACIN IV 500mg qd <=0.12 S LEVOFLOXACIN PO 250mg qd <=0.12 S LEVOFLOXACIN PO 500mg qd <=0.12 S TOBRAMYCIN IV 80mg q8h <=1 S CEFTRIAXONE IV 1gm q24h <=1 S CEFTAZIDIME IV 1gm q8h <=1 S AMPICILLIN/SULBACTAM IV 1.5g q6h <=2 S PIPERACILLIN/TAZOBACTAM IV 2.25 gm q6h <=4 S AZTREONAM IV 1gm q8h <=1 S ERTAPENEM IV 1gm qd <=0.5 S MEROPENEM IV 1 gm q8h <=0.25 S MEROPENEM IV 500 mg q8h <=0.25 S TIGECYCLINE IV 50mg q12h 4 R CEFEPIME IV 1 gm q12h <=1 S CEFEPIME IV 2 gm q12h <=1 S KLEBSIELLA PNEUMONIAE: REACTION TRIMETHOPRIM/SULFAMETHOXAZOLE IV 160mg TMP & 800mg SMXq6h <=20 S TRIMETHOPRIM/SULFAMETHOXAZOLE PO Bactrim DS Bid <=20 S AMPICILLIN IV 500mg q6h >=32 R AMPICILLIN PO 500mg q6h fasting >=32 R GENTAMICIN IV 80mg q8h <=1 S CEFAZOLIN IV 1gm q8h <=4 S LEVOFLOXACIN IV 500mg qd <=0.12 S LEVOFLOXACIN PO 250mg qd <=0.12 S LEVOFLOXACIN PO 500mg qd <=0.12 S TOBRAMYCIN IV 80mg q8h <=1 S CEFTRIAXONE IV 1gm q24h <=1 S CEFTAZIDIME IV 1gm q8h <=1 S AMPICILLIN/SULBACTAM IV 1.5g q6h 4 S PIPERACILLIN/TAZOBACTAM IV 2.25 gm q6h <=4 S AZTREONAM IV 1gm q8h <=1 S ERTAPENEM IV 1gm qd <=0.5 S MEROPENEM IV 1 gm q8h <=0.25 S MEROPENEM IV 500 mg q8h <=0.25 S TIGECYCLINE IV 50mg q12h 1 S CEFEPIME IV 1 gm q12h <=1 S CEFEPIME IV 2 gm q12h <=1 S EXTD BRD SPCTRM BETA LACTAMASE IV NEGATIVE FOR ESBL ESCHERICHIA COLI: REACTION TRIMETHOPRIM/SULFAMETHOXAZOLE IV 160mg TMP & 800mg SMXq6h <=20 S TRIMETHOPRIM/SULFAMETHOXAZOLE PO Bactrim DS Bid <=20 S AMPICILLIN IV 500mg q6h >=32 R AMPICILLIN PO 500mg q6h fasting >=32 R GENTAMICIN IV 80mg q8h <=1 S CEFAZOLIN IV 1gm q8h <=4 S LEVOFLOXACIN IV 500mg qd >=8 R LEVOFLOXACIN PO 250mg qd >=8 R LEVOFLOXACIN PO 500mg qd >=8 R TOBRAMYCIN IV 80mg q8h <=1 S CEFTRIAXONE IV 1gm q24h <=1 S CEFTAZIDIME IV 1gm q8h <=1 S AMPICILLIN/SULBACTAM IV 1.5g q6h 16 I PIPERACILLIN/TAZOBACTAM IV 2.25 gm q6h <=4 S AZTREONAM IV 1gm q8h <=1 S ERTAPENEM IV 1gm qd <=0.5 S MEROPENEM IV 1 gm q8h <=0.25 S MEROPENEM IV 500 mg q8h <=0.25 S TIGECYCLINE IV 50mg q12h <=0.5 S CEFEPIME IV 1 gm q12h <=1 S CEFEPIME IV 2 gm q12h <=1 S EXTD BRD SPCTRM BETA LACTAMASE IV NEGATIVE FOR ESBL 3 Units are mL/min/1.73 m2 Chronic Kidney Disease Staging per NKF: Stage I & II GFR >=60 Normal to Mildly Decreased Stage III GFR 30-59 Moderately Decreased Stage IV GFR 15-29 Severely Decreased Stage V GFR <15 Very Little GFR Left ESRD GFR <15 on DIGESTER Procedures Date Code Description Status 04/17/2021 81334 Office/Outpatient Established Mo d MDM 30-39 Min Completed 03/08/2021 91859 Office/Outpatient Established Lo w MDM 20-29 Min Completed 03/08/2021 81490 Electrocardiogram Complete Compl eted 02/13/2021 30773 Office/Outpatient Established Lo w MDM 20-29 Min Completed 01/22/2021 33186 Office/Outpatient Established Mo d MDM 30-39 Min Completed 08/06/2020 72530773 Mammogram Completed Medical Devices Description No Information Available Encounters Type Date Location Provider Dx Diagnosis Office Visit 04/17/2021 9:40a [facility] KELLY Fajardo 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, including tongue K58.1 Irritable bowel syndrome wit h constipation F41.1 Generalized anxiety disorder Z79.899 Other medical terminologist (current) dr vasquez therapy Office Visit 03/08/2021 10:00a [facility] KELLY Fajardo Z01.818 Encounter for other preproce dural examination I45.81 Long QT syndrome 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, including tongue K21.9 Gastro-esophageal reflux dis ease without esophagitis K58.1 Irritable bowel syndrome wit h constipation F41.1 Generalized anxiety disorder G43.009 Migraine w/o aura, not intra ctable, w/o status migrainosus Z79.899 Other medical terminologist (current) dr vasquez therapy Office Visit 02/13/2021 11:20a [facility] [place] KELLY Coffey N39.0 Urinary tract infection, sit e not specified Office Visit 01/22/2021 1:15p [facility] KELLY Fajardo R47.02 Dysphasia 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, including tongue Office Visit 12/12/2020 10:00a [facility] KELLY Fajardo Z00.00 Encntr for general adult med ical exam w/o abnormal findings M25.561 Pain in right knee M25.552 Pain in left hip K21.9 Gastro-esophageal reflux dis ease without esophagitis K58.1 Irritable bowel syndrome wit h constipation E78.00 Pure hypercholesterolemia, u nspecified F41.1 Generalized anxiety disorder G43.009 Migraine w/o aura, not intra ctable, w/o status migrainosus Z79.899 Other medical terminologist (current) dr christina therapy 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, including tongue Z13.820 Encounter for screening for osteoporosis Assessments Date Code Description Provider 04/17/2021 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, incl uding tongue KELLY Fajardo 04/17/2021 K58.1 Irritable bowel syndrome with co nstipation KELLY Fajardo 04/17/2021 F41.1 Generalized anxiety disorder KELLY Dickson 04/17/2021 Z79.899 Other senior care (current) drug t herapy KELLY Fajardo 03/08/2021 Z01.818 Encounter for other preprocedura l examination KELLY Fajardo 03/08/2021 I45.81 Long QT syndrome KELLY Fajardo 03/08/2021 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, incl uding tongue KELLY Fajardo 03/08/2021 K21.9 Gastro-esophageal reflux disease without esophagitis KELLY Fajardo 03/08/2021 K58.1 Irritable bowel syndrome with co nstipation KELLY Fajardo 03/08/2021 F41.1 Generalized anxiety disorder KELLY Dickson 03/08/2021 G43.009 Migraine without aur a, not intractable, without status migrainosus KELLY Fajardo 03/08/2021 Z79.899 Other senior care (current) drug t herapy KELLY Fajardo 02/13/2021 N39.0 Urinary tract infection, site no t specified KELLY Coffey 01/22/2021 R47.02 Dysphasia KELLY Fajardo 01/22/2021 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, incl uding tongue KELLY Fajardo 12/12/2020 Z00.00 Encounter for genera l adult medical examination without abnormal findings KELLY Fajardo 12/12/2020 M25.561 Pain in right knee KELLY Lindsey 12/12/2020 M25.552 Pain in left hip KELLY Fajardo 12/12/2020 K21.9 Gastro-esophageal reflux disease without esophagitis KELLY Fajardo 12/12/2020 K58.1 Irritable bowel syndrome with co nstipation KELLY Fajardo 12/12/2020 E78.00 Pure hypercholesterolemia, unspe cified KELLY Fajardo 12/12/2020 F41.1 Generalized anxiety disorder KELLY Dickson 12/12/2020 G43.009 Migraine without aur a, not intractable, without status migrainosus KELLY Fajardo 12/12/2020 Z79.899 Other medical terminologist (current) drug t herapy KELLY Fajardo 12/12/2020 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, incl uding tongue KELLY Fajardo 12/12/2020 Z13.820 Encounter for screening for oste oporosis KELLY Fajardo Plan of Treatment Future Appointment(s):* 07/17/2021 9:30 am - KELLY Fajardo at [facility] Functional Status Description No Information Available Mental Status Description No Information Available Referrals Refer to Reason for Referral Status Appt Date Jose Daniel Bey M.D. Recent ugi series shows mult iple gastric polyps with largest being one cm. She has thickened duodenal folds as well. UGI series done due to dysphagia. Please consider endoscopy to evaluate further . Sent 03/07/2021 DR. Bey's Office [address] [place] [address], [place].. [address] [phone]
--- OUTSIDE RECORDS SUMMARY | 2021-05-20 07:53 | CCD | Continuity of Care Document ---
Author Author Alix FLEMING MD Organization Unknown Address [address] [facility] [address] [place] [address] Phone [phone] Care Team Providers Care Manager Audit Name Role Phone Abdoulaye Lockett D.M.D. AUTM [phone] Hollie Jordan D.O. AUTM Central Scheduling AUTM [phone] Enrrique Jean-Baptiste DDS AUTM [phone] Problems Active Problems Provider Date Leukoplakia of oral mucosa kSip Fleming MD Onset: 2017 Social History Type [...] lb BMI (Body Mass Index) 37.9 kg/m2 [place] Body Weight 100 lb Weight 87.998 kg BSA (Body Surface Area) 1.84 m2 02/13/2021 8:40am Height 60 inches 5'0" Weight 218.00 lb BMI (Body Mass Index) 42.6 kg/m2 [place] Body Weight 100 lb Weight 98.885 kg BSA (Body Surface Area) 1.94 m2 Results Test Acquired Date Facility Test Result H/L Range Note Laboratory test finding 03/14/2021 [facility] Main Lab [address] [place] [address] [phone] Pathology Request For Service (SEE NOTE) 1 [...] 1103 Procedures Date Code Description Status 02/13/2021 49926 Office/Outpatient Established Mo d MDM 30-39 Min Completed 11/20/2020 50897 Office/Outpatient Established Lo w MDM 20-29 Min Completed 05/11/2019 [id number] Mammogram Completed 05/10/2018 [id number] Mammogram Completed 04/21/2017 [id number] Mammogram Completed 04/16/2016 10531333 Mammogram Completed Medical Devices Description No Information Available Encounters Type Date Location Provider Dx Diagnosis Office Visit 02/13/2021 8:15a [facility] Skip Fleming MD 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, including tongue Office Visit 11/20/2020 9:15a [facility] Skip Fleming MD 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, including tongue J31.0 Chronic rhinitis Assessments Date Code Description Provider 03/19/2021 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, incl uding tongue Skip Fleming MD 02/13/2021 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, incl uding tongue Skip Fleming MD 11/20/2020 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, incl udomari tongue Skip Fleming MD 11/20/2020 J31.0 Chronic rhinitis Skip Fleming MD Plan of Treatment Future Appointment(s):* 05/28/2021 9:30 am - Skip Fleming MD at [facility] 03/19/2021 - Skip Fleming MD* 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
--- OUTSIDE RECORDS SUMMARY | 2021-05-20 07:53 | CCD | Continuity of Care Document ---
Author Author Alix FLEMING MD Organization Unknown Address [address] [facility] [address] [place] [address] Phone [phone] Care Team Providers Care Quality Liaison Name Role Phone Abdoulaye Lockett D.M.D. AUTM [phone] Hollie Jordan D.O. AUTM Central Scheduling AUTM [phone] Enrrique Jean-Baptiste DDS AUTM [phone] Problems Active Problems Provider Date Leukoplakia of [...] lb BMI (Body Mass Index) 37.9 kg/m2 [place] Body Weight 100 lb Weight 87.998 kg BSA (Body Surface Area) 1.84 m2 02/13/2021 8:40am Height 60 inches 5'0" Weight 218.00 lb BMI (Body Mass Index) 42.6 kg/m2 [place] Body Weight 100 lb Weight 98.885 kg BSA (Body Surface Area) 1.94 m2 Results Test Acquired Date Facility Test Result H/L Range Note Laboratory test finding 03/14/2021 [facility] Main Lab [address] [place] [address] [phone] Pathology Request For Service (SEE NOTE) 1 [...] 1103 Procedures Date Code Description Status 02/13/2021 52763 Office/Outpatient Established Mo d MDM 30-39 Min Completed 11/20/2020 69459 Office/Outpatient Established Lo w MDM 20-29 Min Completed 05/11/2019 [id number] Mammogram Completed 05/10/2018 [id number] Mammogram Completed 04/21/2017 [id number] Mammogram Completed 04/16/2016 [id number] Mammogram Completed Medical Devices Description No Information Available Encounters Type Date Location Provider Dx Diagnosis Office Visit 11/20/2020 9:15a [facility] Skip Fleming MD K13.21 [...] 9:30 am - Skip Fleming MD at [facility] 03/19/2021 - Skip Fleming MD* 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
--- OUTSIDE RECORDS SUMMARY | 2021-05-20 07:53 | CCD ---
Continuity of Care Document (CCD) Created on: 03/28/2021 Alix Florian External Reference #: [id number] : [id number] Sex: Female Author Author Alix PETTY MD Organization Unknown Address [address] [place] [address], [address] [place] [address] Phone [phone] Care Team Providers Care [employer] Name Role Phone Hollie Jordan DO AUTM [phone] Problems Description No Information Available Social History Type Date Description Comments Sex Unknown ETOH Use Rarely consumes alcohol Tobacco Use Start: Unknown Denies Smoking Allergies, Adverse Reactions, Alerts Active Allergies Criticality Reaction | Severity Comments Date Erythromycin Unable to assess criticality 05/06/2019 sulfa drugs Unable to assess criticality 05/06/2019 Penicillin Unable to assess criticality 05/06/2019 Nitrofurantoin Unable to assess criticality 05/06/2019 Tetracycline Unable to assess criticality 05/06/2019 Novocet Lotion Unable to assess criticality 05/06/2019 Retin-A Unable to assess criticality 05/06/2019 Sedane Unable to assess criticality 05/06/2019 Tavist Unable to assess criticality 05/06/2019 Oxycodone Unable to assess criticality 05/06/2019 Lidocaine Unable to assess criticality 05/06/2019 IVP Dye Unable to assess criticality 05/06/2019 Gluten Unable to assess criticality 05/06/2019 Konofed A JR Unable to assess criticality 10/04/2020 Prebenzaminu Unable to assess criticality 10/04/2020 Environmental Unable to assess criticality 10/04/2020 Hay Fever Unable to assess criticality 10/04/2020 Medications Active Medications SIG Qnty Indications Ordering Provide r Date Anexsia 7.5/325MG 1 Q 4-6 HRS prn/Pain 30units Pinky Samuels, JARAD 06/25/2006 Dexamethasone Sodium Phosphate (4m g,1ML) as Directed In Physical Therapy 30ml Pinky thomas, [employer] [employer] 02/20/2006 Fluconazole 200mg Tablets Take 1 Tablet By Mouth After Finishing Antiiotics And 2 Days Later If Symptoms Persist Unknown Cephalexin 500mg Capsules Take One Capsule By Mouth Every 12 Hours For 7 Days Unknown Famotidine 40mg Tablets Otf [employer] PA Lidocaine Viscous HCL 2% Solution [employer] PA Chlorhexidine Gluconate 0.12% Solu tion Take 1 Tablespoonful Swish And Spit Out Three Times A Day For 10 Days Unknown Tizanidine HCL 2mg Tablets Take One To Two Tablets By Mouth Every 8 Hours as Needed For Pain Unknown Estradiol 0.1mg/GM Cream Apply Vaginally Three Times A Week as Directed Unknown 0 Ciprofloxacin HCL 500mg Tablets Take One Tablet By Mouth Every 12 Hours Unknown 0 Dok 100mg Capsules Take One Capsule By Mouth Every Day Unknown Prednisolone Acetate 1% Suspension Instill 1 Drop In Both Eyes Two Times A Day For 2 Weeks Then Once Daily For 2 Weeks Then Stop Unknown Shingrix 50mcg/0.5ML Suspension Rec [employer] PA Naproxen 500mg Tablets Lena Albarado PA Dapsone 25mg Tablets Unknown Restasis 0.05% Emulsion 1 drop both eyes twice a day Unknown [employer] Tablets Unknown Fish Oil 1200mg Capsules 1 by mouth every day Unknown Vitamin E 400Unit Capsules 1 by mouth every day Unknown Vitamin D 2000Unit Tablets Unknown Calcium 1200 [id number] Chew tabs dose unknown Unknown Flonase Allergy Relief 50mcg/Act Suspension 2 sprays per nostril every in the morning Unknown Probiotic Tablets DR Unknown Metamucil 28% Packet 1 tbl spoon in 8 oz water twice a day Unknown Magnesium Bisglycinate 100mg Tablets Unknown Dicyclomine HCL 10mg Capsules Unknown Protonix 40mg Tablets DR 1 by mouth every day Unknown Ranitidine HCL 300mg Tablets [employer] PA Topiramate 25mg Tablets Take 4 Tablets By Mouth Every Evening If Needed Unknown Alprazolam 0.25mg Tablets Bobby Luz RPA Immunizations Description No Information Available Vital Signs Date Vital Result Comment 10/04/2020 1:15pm Body Temperature 97.5 F Height 60 inches 5'0" Weight 221.25 lb BMI (Body Mass Index) 43.2 kg/m2 05/06/2019 1:54pm Body Temperature 97.2 F Height 60.5 inches 5'0.50" Weight 224.25 lb BMI (Body Mass Index) 43.1 kg/m2 Results Description No Information Available Procedures Date Code Description Status 03/18/2021 32147 Office/Outpatient Established Lo w MDM 20-29 Min Completed 03/05/2021 54006 Manual Therapy Each 15 Minutes C ompleted 03/05/2021 09675 Therapeutic Procedure, Each 15 M inutes Completed 02/20/2021 81811 Manual Therapy Each 15 Minutes C ompleted 02/20/2021 35062 Therapeutic Procedure, Each 15 M inutes Completed 02/06/2021 58416 Manual Therapy Each 15 Minutes C ompleted 02/06/2021 51823 Therapeutic Procedure, Each 15 M inutes Completed 02/04/2021 43348 Office/Outpatient Established Lo w MDM 20-29 Min Completed 01/30/2021 02465 Therapeutic Procedure, Each 15 M inutes Completed 01/24/2021 46856 Manual Therapy Each 15 Minutes C ompleted 01/24/2021 86037 Therapeutic Procedure, Each 15 M inutes Completed 01/16/2021 79217 Therapeutic Procedure, Each 15 M inutes Completed 01/02/2021 71006 Therapeutic Procedure, Each 15 M inutes Completed 12/28/2020 71463 Re-Eval Of PT Establ ished Plan Of Care 20Mins Face To Face PT/Fam Completed 12/28/2020 14162 Therapeutic Procedure, Each 15 M inutes Completed 12/20/2020 03003 X-Ray Femur Minimum 2 Views Comp leted 12/20/2020 94439 Office/Outpatient Established Mo d MDM 30-39 Min Completed 12/20/2020 14779 Therapeutic Procedure, Each 15 M inutes Completed 12/11/2020 58088 Therapeutic Procedure, Each 15 M inutes Completed 11/28/2020 32970 Therapeutic Procedure, Each 15 M inutes Completed 11/26/2020 04385 Therapeutic Procedure, Each 15 M inutes Completed 11/22/2020 68983 Therapeutic Procedure, Each 15 M inutes Completed 11/19/2020 92461 Therapeutic Procedure, Each 15 M inutes Completed 11/15/2020 69131 Therapeutic Procedure, Each 15 M inutes Completed 11/12/2020 26517 Therapeutic Procedure, Each 15 M inutes Completed 11/12/2020 68251 Office/Outpatient Established Lo w MDM 20-29 Min Completed 11/08/2020 19413 Therapeutic Procedure, Each 15 M inutes Completed 11/05/2020 48546 Therapeutic Procedure, Each 15 M inutes Completed 10/25/2020 08346 Physical Therapy Eval - Low Comp lexity Completed 10/15/2020 48486 Office/Outpatient Established Mo d MDM 30-39 Min Completed 10/09/2020 11057 MRI Lower Extremity Any Joint Co mpleted 10/09/2020 07173 MRI Lower Extremity Any Joint Co mpleted 10/04/2020 43192 Office/Outpatient Established Mo d MDM 30-39 Min Completed 10/04/2020 97369 X-Ray Femur Minimum 2 Views Comp leted Medical Devices Description No Information Available Encounters Type Date Location Provider Dx Diagnosis Office Visit 03/18/2021 9:00a Lucian Petty MD S83.241D Oth tear of medial meniscus, current injury, r knee, subs Office Visit 02/04/2021 8:30a Lucian Petty MD S83.241D Oth tear of medial meniscus, current injury, r knee, subs 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, left hip Office Visit 12/20/2020 8:45a Lucian Petty MD S83.241D Oth tear of medial meniscus, current injury, r knee, subs M70.62 Trochanteric bursitis, left hip Office Visit 11/12/2020 8:45a Lucian Petty MD S83.241D Oth tear of medial meniscus, current injury, r knee, subs Office Visit 10/15/2020 8[place] S83.241A Oth tear of medial meniscus, current injury, r knee, init M23.41 Loose body in knee, right kn ee M17.11 Unilateral primary osteoarth ritis, right knee Assessments Date Code Description Provider 03/18/2021 S83.241D Other tear of medial meniscus, current injury, right knee, subsequent encounter Bobby Petty MD 03/05/2021 S83.241D Other tear of medial meniscus, current injury, right knee, subsequent encounter Dom Cerda P.T. 03/05/2021 M16.12 Unilateral primary osteoarthriti s, left hip Dom Cerda P.T. 02/20/2021 S83.241D Other tear of medial meniscus, current injury, right knee, subsequent encounter Danamarie Ortolano, [employer] 02/20/2021 M16.12 Unilateral primary osteoarthriti s, left hip Danamarie Ortolano, [employer] 02/06/2021 S83.241D Other tear of medial meniscus, current injury, right knee, subsequent encounter Dom Cerda P.T. 02/06/2021 M16.12 Unilateral primary osteoarthriti s, left hip Dom Cerda P.T. 02/04/2021 S83.241D Other tear of medial meniscus, current injury, right knee, subsequent encounter Bobby Petty MD 02/04/2021 M16.12 Unilateral primary osteoarthriti s, left hip Bobby Petty MD 01/30/2021 S83.241D Other tear of medial meniscus, current injury, right knee, subsequent encounter Danamarie Ortolano, [employer] 01/30/2021 M70.62 Trochanteric bursitis, left hip Danamarie Ortolano, [employer] 01/24/2021 S83.241D Other tear of medial meniscus, current injury, right knee, subsequent encounter Danamarie Ortolano, [employer] 01/24/2021 M70.62 Trochanteric bursitis, left hip Danamarie Ortolano, [employer] 01/16/2021 S83.241D Other tear of medial meniscus, current injury, right knee, subsequent encounter Dom Cerda P.T. 01/16/2021 M70.62 Trochanteric bursitis, left hip Dom Cerda P.T. 01/02/2021 S83.241D Other tear of medial meniscus, current injury, right knee, subsequent encounter Suri Crane P.T.A. 12/28/2020 S83.241D Other tear of medial meniscus, current injury, right knee, subsequent encounter Dom Cerda P.T. 12/28/2020 M70.62 Trochanteric bursitis, left hip Dom Cerda P.T. 12/20/2020 S83.241D Other tear of medial meniscus, current injury, right knee, subsequent encounter Dom Cerda P.T. 12/20/2020 S83.241D Other tear of medial meniscus, current injury, right knee, subsequent encounter Bobby Petty MD 12/20/2020 M70.62 Trochanteric bursitis, left hip Bobby Petty MD 12/11/2020 S83.241D Other tear of medial meniscus, current injury, right knee, subsequent encounter Suri Crane P.T.A. 11/28/2020 S83.241D Other tear of medial meniscus, current injury, right knee, subsequent encounter Dom Cerda P.T. 11/26/2020 S83.241D Other tear of medial meniscus, current injury, right knee, subsequent encounter Danamarie Ortolano, [employer] 11/22/2020 S83.241D Other tear of medial meniscus, current injury, right knee, subsequent encounter Danamarie Ortolano, [employer] 11/19/2020 S83.241D Other tear of medial meniscus, current injury, right knee, subsequent encounter Danamarie Ortolano, [employer] 11/15/2020 S83.241D Other tear of medial meniscus, current injury, right knee, subsequent encounter Danamarie Ortolano, [employer] 11/12/2020 S83.241D Other tear of medial meniscus, current injury, right knee, subsequent encounter Dom Cerda P.T. 11/12/2020 S83.241D Other tear of medial meniscus, current injury, right knee, subsequent encounter Bobby Petty MD 11/08/2020 S83.241D Other tear of medial meniscus, current injury, right knee, subsequent encounter Samantha Petty, [employer] 11/05/2020 S83.241D Other tear of medial meniscus, current injury, right knee, subsequent encounter Dom Cerda P.T. 10/25/2020 S83.241D Other tear of medial meniscus, current injury, right knee, subsequent encounter Dom Cerda P.T. 10/15/2020 S83.241A Other tear of medial meniscus, current injury, right knee, initial encounter Bobby Petty MD 10/15/2020 M23.41 Loose body in knee, right knee S renita Petty MD 10/15/2020 M17.11 Unilateral primary osteoarthriti s, right knee Bobby Petty MD 10/09/2020 M25.561 Pain in right knee Bobby robretson MD 10/09/2020 M25.561 Pain in right knee MRI 10/04/2020 M25.561 Pain in right knee Bobby robertson MD 10/04/2020 M17.11 Unilateral primary osteoarthriti s, right knee Bobby Petty MD Plan of Treatment 03/18/2021 - Bobby Petty MD* S83.241D Other tear of medial meniscus, current injury, right knee, subsequent encounter* Follow up:* 2 months with [facility] for rt knee re-check Functional Status Description No Information Available Mental Status Description No Information Available Referrals Refer to Dr Reason for Referral Status Appt Date Bobby Petty MD Allowed eval than needs auth to PT dept sw. Created [address] [place] [phone] Bobby Petty MD PT - 6 VISITS & 24 SERVICE U NITS OK'D FOR R KNEE FROM 01/07- 03/08/21, AUTH# [id number]. SS Created [address] [place] [phone] Bobby Petty MD PT - 4 VISITS AND 16 UNITS O K'D FOR R KNEE FROM 12/03-01/02/21, AUTH# [id number]. SS Created [facility] [address] [phone] Bobby Petty MD PT - 8 VISITS AND 32 UNITS O K'D FOR R KNEE FROM 10/29-11/28/20, AUTH #[id number]. SS Created [facility] [address] [address] [phone] Bobby Petty MD PT ALLOWED EVAL THEN NEEDS AUTH TO PT DEPT. N T Created [address] [place] [phone] Bobby Petty MD MRI APPROVED PER JAVI ÁLVAREZ FOR MRI OF RIGHT KNEE (99551) TO MRI. DG Created [facility] [address] [address] [phone]
--- OUTSIDE RECORDS SUMMARY | 2021-05-20 07:53 | CCD ---
Author Author Deion Jones MD [facility] Organization Deion Jones MD [facility] Address [phone] [address] Phone Care Team Providers Care Survey Supervisor Name Role Phone Karen BULL, TIGIST, Deion Maldonado Unavailable [phone] Hollie Jordan D.O. PP [phone] Kasia BULL, Tool Unavailable [phone] Reason for Referral No Reason for Referral Recorded Problems Includes: Active, inactive, and resolved Problems All Visits Onset Date - Time Resolved Date - Time Provider Co ndition Status Conjunctivitis Acute Atopic 05/26/2017 - 12:00AM Deion Jones MD, FACS Inactive Cataract Senile Posterior Subcapsular Polar 05/21/2016 - 12:00AM Deion Jones MD, FACS Active Vitreous Disorders Degeneration 05/23/2015 - 12:00AM Deion Jones MD, FACS Active Cataract Senile Cortical 05/12/2014 - 12:00AM Deion Jones MD, FACS Active Note: Unchanged - of the lef t eye Dermatitis of Eyelid Contact, Allergic 05/12/2014 - 12:00AM Deion Garcia MD, FACS Inactive Note: Unchanged - of the upp er eyelids Strabismus Non-paralytic Heterophoria Exophoria 05/12/2014 - 12: 00AM Deion Jones MD, FACS Active Note: Unchanged Conjunctivitis Chronic Allergic 05/12/2013 - 12:00AM Deion Jones MD, FACS Active Note: Unchanged - of both ey es Dry Eye Syndrome Both Eyes 05/12/2013 - 12:00AM Deion Jones MD, FACS Active Note: Unchanged Vitreous Floaters Both Eyes 05/12/2013 - 12:00AM Deion Jones MD, FACS Inactive Note: Unchanged Plan of Treatment Future Appointments Date Time Location Provider 1 Year Follow-Up 06/06/2021 9:05AM Deion Jones MD [facility] Deion Jones MD, FACS Assessments Includes: Assessments for all patient encounters Findings Encounter Date Bilateral cortical senile cataract 1 Year [facility] Deion [facility] MD, FACS 06/04/2020 Chronic allergic conjunctivitis 1 Year Follow-Up with Deion Jones MD, FACS 06/04/2020 Dry eye syndrome of both eyes 1 Year Follow-Up with Niko Jones MD, FACS 06/04/2020 Posterior subcapsular polar senile cataract 1 Year Fol low-Up with Deion Jones MD, FACS 06/04/2020 Bilateral cortical senile cataract 1 Year [facility] Deion [facility] MD, FACS 05/31/2019 Chronic allergic conjunctivitis 1 Year Follow-Up with Deion Jones MD, FACS 05/31/2019 Dry eye syndrome of both eyes 1 Year Follow-Up with Niko Jones MD, FACS 05/31/2019 Posterior subcapsular polar senile cataract 1 Year Fol low-Up with Deion Jones MD, FACS 05/31/2019 Bilateral hypermetropia 1 Year Follow-Up with Deion Peña MD, FACS 05/31/2018 Chronic allergic conjunctivitis 1 Year Follow-Up with Deion Jones MD, FACS 05/31/2018 Cortical senile cataract 1 Year Follow-Up with Deion Dudley MD, FACS 05/31/2018 Dry eye syndrome of both eyes 1 Year Follow-Up with Niko Jones MD, FACS 05/31/2018 Posterior subcapsular polar senile cataract 1 Year Fol low-Up with Deion Jones MD, FACS 05/31/2018 Acute atopic conjunctivitis 1 Year Follow-Up with Deion Dan MD, FACS 05/26/2017 Bilateral cortical senile cataract 1 Year [facility] Deion [facility] MD, FACS 05/26/2017 Chronic allergic conjunctivitis 1 Year Follow-Up with Deion Jones MD, FACS 05/26/2017 Dry eye syndrome of both eyes 1 Year Follow-Up with Niko Jones MD, FACS 05/26/2017 Posterior subcapsular polar senile cataract 1 Year Fol low-Up with Deion Jones MD, FACS 05/26/2017 Cortical senile cataract 1 Year Follow-Up with Deion Dudley MD, FACS 05/21/2016 Dry eye syndrome of both eyes 1 Year Follow-Up with Niko Jones MD, FACS 05/21/2016 Other chronic allergic conjunctivitis of both eyes 1 Year Follow-Up with Deion Jones MD, FACS 05/21/2016 Posterior subcapsular polar senile cataract 1 Year Fol low-Up with Deion Jones MD, FACS 05/21/2016 Acute atopic conjunctivitis TRIAGE NON URGENT with Deion Jones MD, FACS 09/14/2015 Allergic dermatitis of right lower eyelid of the left lower eyelid TRIAGE NON URGENT with Deion Jones MD, FACS 09/14/2015 Cortical senile cataract 1 Year Follow-Up with Deion Dudley MD, FACS 05/23/2015 Dry eye syndrome of both eyes 1 Year Follow-Up with Niko Jones MD, FACS 05/23/2015 Other chronic allergic conjunctivitis of both eyes 1 Year Follow-Up with Deion Jones MD, FACS 05/23/2015 Vitreous degeneration 1 Year Follow-Up with Deion becker MD, FACS 05/23/2015 Chronic allergic conjunctivitis both eyes 1 Year Foll ow-Up with Deion Garcia MD, FACS 05/12/2014 Contact, allergic dermatitis of the eyelid both upper lids 1 Year Follow-Up with Deion Jones MD, FACS 05/12/2014 Cortical senile cataract of the left eye 1 Year Follo w-Up with Deion Garcia MD, FACS 05/12/2014 Dry eye syndrome of both eyes 1 Year Follow-Up with Niko Jones MD, FACS 05/12/2014 Exophoria 1 Year Follow-Up with Deion singh MD, FACS 05/12/2014 Vitreous floaters in both eyes 1 Year Follow-Up with D avifrantz Jones MD, FACS 05/12/2014 Chronic allergic conjunctivitis of both eyes 1 Year F ollow-Up with Deion Jones MD, FACS 05/12/2013 Dry eye syndrome of both eyes 1 Year Follow-Up with Niko Jones MD, TIGIST 05/12/2013 Vitreous floaters in both eyes 1 Year Follow-Up with Frantz Jones MD, FACS 05/12/2013 Instructions Instructions not supported for this document typeNo Instructions Recorded Medical Equipment - Implanted Devices Includes: Current and historical DevicesNo Medical Equipment Recorded Medications Includes: Current and historical Medications Current Medications (continue as prescribed) [facility] Melatonin 5 MG Oral Capsule 06/04/2020 Provider : Diagnosis: Leutein 6 MG Oral Tablet 05/31/2019 Provider: Diagnosis: Estroven Nighttime Oral Tablet 05/31/2019 Provider: Diagnosis: one tab every other night at bedtime HM E Vitamin 400 UNIT Oral Capsule 05/31/2019 Provi surya: Diagnosis: 2 capsules daily Magnesium 100 MG Oral Tablet 05/31/2019 Provider: Diagnosis: Metamucil Oral Tablet 05/31/2018 Provider: Diagnosis: Probiotic Oral Capsule 05/31/2018 Provider: Diagnosis: Flonase 100MCG/ACT Nasal Suspension 05/31/2018 Prov ider: Diagnosis: Restasis Multidose 0.05% Ophthalmic Emulsion 05/26/2017 Provider: Deion Jones MD, FACS Diagnosis: Dry eye syndrome of bilateral lacrimal glands One drop twice a day in both eyes Alaway 0.025% Ophthalmic Solution 05/26/2017 Provid er: Diagnosis: [facility] Fish Oil 1200MG Oral Capsule 05/26/2017 Provide r: Diagnosis: 2 tabs HM Vitamin D3 5000 5000 UNITS Oral Capsule 05/26/2017 Provider: Diagnosis: Calcium 1200 MG+D3 [id number] Oral Tablet 05/26/2017 Provider: Diagnosis: Dicyclomine HCl 10 MG Capsule 05/21/2016 Provider: Diagnosis: Restasis 0.05 % Emulsion 05/21/2016 Provider: Deion Jones MD, FACS Diagnosis: Dry eye syndrome of bilateral lacrimal glands One drop twice a day in both eyes Topamax 25 MG Tablet 05/23/2015 Provider: Diagnosis: ALPRAZolam 0.25 MG OR TABS 05/12/2014 Provider: Diagnosis: as needed B-12 1000 MCG OR CAPS 05/12/2013 Provider: Diagnosis: Dapsone 25 MG OR TABS 05/12/2013 Provider: Diagnosis: raNITIdine HCl 300 MG OR CAPS 05/12/2013 Provider: Diagnosis: Protonix 40 MG OR PACK 05/12/2013 Provider: Diagnosis: Past Medications on file prednisoLONE Acetate 1% Ophthalmic Suspension 07/13/2020 - 0 08/12/2020 Provider: Deion Jones MD, FACS Diagnosis: Other chronic allerg ic conjunctivitis One drop twice a day in both eyes for tw o weeks, then once a day for 2 weeks, then stop Estroven Nighttime Oral Tablet 05/31/2019 - 05/31/2019 Provi surya: Diagnosis: Elestat 0.05 % Solution 05/27/2016 - 05/26/2017 Provider: Deion Jones MD, FACS Diagnosis: Other chronic allerg ic conjunctivitis One drop twice a day in both eyes Lotemax 0.5 % Suspension 05/27/2016 - 05/31/2018 Provider: Deion Jones MD, FACS Diagnosis: Other chronic allerg ic conjunctivitis One drop each day in both eyes Lotemax 0.5 % Suspension 09/14/2015 - 05/27/2016 Provider: Deion Jnoes MD, FACS Diagnosis: Allergic dermatitis of right lower eyelid One drop each day in both eyes Restasis 0.05 % Emulsion 09/12/2015 - 05/21/2016 Provider: Deion Jones MD, FACS Diagnosis: Dry eye syndrome of bilateral lacrimal glands One drop twice a day in both eyes Elestat 0.05 % Solution 06/18/2015 - 05/27/2016 Provider: Deion Jones MD, FACS Diagnosis: Other chronic allerg ic conjunctivitis One drop twice a day in both eyes Chlordiazepoxide-Clidinium 5-2.5 MG Capsule 05/23/2015 - Provider: Diagnosis: Prempro 0.3-1.5 MG OR TABS 05/12/2014 - 05/26/2017 Provider: Diagnosis: 1 every other day Elestat 0.05% OP SOLN 05/12/2014 - 06/18/2015 Provider: Deion Jones MD, FACS Diagnosis: Chr Allrg Conjunctiv NEC to ProAct Restasis 0.05% OP EMUL 05/12/2014 - 09/12/2015 Provider: Deion Jones MD, FACS Diagnosis: Tear Film Insuffic N OS ALPRAZolam 0.25 MG OR TABS 05/12/2014 - 05/12/2014 Provider: Diagnosis: Elestat 0.05% OP SOLN 09/09/2013 - 09/04/2014 Provider: Deion Jones MD, FACS Diagnosis: Chr Allrg Conjunctiv NEC Restasis 0.05% OP EMUL 09/09/2013 - 05/12/2014 Provider: Deion Jones MD, FACS Diagnosis: Tear Film Insuffic N OS [facility] Vitamin D 2000 UNIT OR CAPS 05/12/2013 - 05/31/2019 Prov ider: Diagnosis: Elestat 0.05% OP SOLN 05/12/2013 - 05/12/2014 Provider: Diagnosis: Fosamax 70 MG OR TABS 05/12/2013 - 05/12/2014 Provider: Diagnosis: Once a week Prempro 0.3-1.5 MG OR TABS 05/12/2013 - 05/12/2014 Provider: Diagnosis: chlordiazePOXIDE-Clidinium 5-2.5 MG OR CAPS 05/12/2013 - Provider: Diagnosis: Topamax 25 MG OR TABS 05/12/2013 - 05/23/2015 Provider: Diagnosis: ALPRAZolam 0.25 MG OR TABS 05/12/2013 - 05/12/2014 Provider: Diagnosis: Dicyclomine HCl 10 MG OR CAPS 05/12/2013 - 05/21/2016 Provid er: Diagnosis: Lotemax 0.5% OP SUSP 05/12/2013 - 05/26/2017 Provider: Diagnosis: Restasis 0.05% OP EMUL 05/12/2013 - 05/12/2014 Provider: Diagnosis: Medications Administered Includes: Administered Medications in patient's chartNo Administered Medications Recorded Vital Signs Includes: Vital Signs from 04/20/2020 through 04/20/2021No Vital Signs Recorded For Specified Dates Results Includes: Results from 04/20/2020 through 04/20/2021No Results Recorded For Specified Dates History of Present Illness History of Present Illness not supported for this document typeNo History of Present Illness Recorded Social History Description Last Updated No consumption of alcohol 06/04/2020 No tobacco use 06/04/2020 Not using drugs 06/04/2020 Smoking status : Never smoker 06/04/2020 Never smoked 05/31/2019 Has high school diploma 05/12/2013 Occupation : [employer] 05/12/2013 Rents home 05/12/2013 Single 05/12/2013 Procedures and Surgical History Includes: Procedures from 04/20/2020 through 04/20/2021 Procedures Code Diagnosis Performing Provider Service Location Service Date Intermediate Eye Exam Established Patient 58[address] Other chronic allergic conjunctivitis, Dry eye syndrome of bilateral lacrimal glands, Posterior subcapsular polar age-related cataract, bilateral, Cortical age-related cataract, bilateral Deion Jones MD, FACS Deion Jones MD [facility] 06/04/2020 Surgical History Last Updated Surgical / procedural history : Shoulder Surgery 2006, D & C x 2 2009, 3 Colonoscopy 2007, EGD 2014, Tounge ablation 2017. 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 Leukopenia 05/31/2019 Currently wearing eyeglasses 05/12/2013 History of arthritis 05/12/2013 Family History Includes: Family History in patient's chart Description Last Updated Paternal history of cataract 05/31/2019 Paternal history of heart disease 05/31/2019 Sororal history of arthritis 05/31/2019 Maternal history of arthritis 05/23/2015 Maternal history of cataract 05/23/2015 Maternal history of diabetes mellitus 05/23/2015 Maternal history of family history of cancer 5 Maternal history of hypertension 05/23/2015 Maternal history of thyroid disorder 05/23/2015 Paternal history of arthritis 05/23/2015 Paternal history of diabetes mellitus 05/23/2015 Paternal history of hypertension 05/23/2015 Paternal history of stroke/cerebrovascular accident Sororal history of cataract 05/23/2015 0 children 05/12/2013 1 siblings born 05/12/2013 1 sister(s) living 05/12/2013 Father - Stroke 05/12/2013 Mother - Cancer 05/12/2013 Review of Systems Review of Systems not supported for this document typeNo Review of Systems Recorded Mental Status Mental Status not supported for this document typeNo Mental Status Recorded Functional Status Functional Status not supported for this document typeNo Functional Status Recorded Physical Exam Physical Exam not supported for this document typeNo Physical Exam Recorded Immunizations Includes: Immunizations in patient's chartNo Immunizations Recorded Allergies Includes: Active, inactive, and resolved Allergies Substance Type Reaction Onset Date - Time Resolved Date - Ti me Status Tripelennamine HCl Allergy Skin Rashes, Hives 05/27/2016 - 12:00AM Active Tetracycline HCl Allergy Skin Rashes, Hives 05/27/2016 - 12:00AM Active Tavist Allergy Allergy Skin Rashes, Hives 05/27/2016 - 12:00AM Active Sulfa Antibiotics Allergy 05/31/2019 - 12:00AM Active Sedanare Allergy 05/31/2019 - :00AM Acti ve Retin-A Allergy Skin Rashes, Hives 05/27/2016 - 12:00AM Active Penicillin G Benzathine Allergy Skin Rashes, Hives 05/27/2016 - :00AM Active oxyCODONE HCl Allergy Skin Rashes, Hives 05/27/2016 - 12:00AM Active Macrobid Allergy Skin Rashes, Hives 05/27/2016 - 12:00AM Active Lidocaine Allergy back pain 05/27/2016 - 12:00AM Acti ve Kronofed A JR Allergy 05/31/2019 - 12:00AM A ctive IVP Dye Allergy 05/27/2016 - 12:00AM Acti ve Gluten Intolerence Allergy dermatitis herpetiformis 05/27/2016 - 2:00AM Active Fosamax Allergy 05/23/2015 - 12:00AM Acti ve Campos-Tab Allergy itch / rash / diarrhea / stomach 05/27/2016 2:00AM Active Entex PAC Allergy itch / rash 05/27/2016 - 12:00AM Act richard Claritin Allergy 05/12/2013 - 12:00AM Acti ve Encounters Includes: Encounters from 04/20/2020 through 04/20/2021 Encounter Provider Location Date Check-In Time Check-Out Time D iagnosis Rx Refills/Changes Deion Jones MD, FACS 07/13/2020 06/04/2020 3:39PM 06/04/2020 11:59PM 1 Year Follow-Up Deion Jones MD, FACS Deion Landry [facility] 06/04/2020 9:06AM 9:55AM Cataract Senile Post erior Subcapsular Polar, Conjunctivitis Chronic Allergic, Dry Eye Syndrome Both Eyes, Cataract Senile Cortical Bilateral Insurance Includes: Active Insurance Policies Plan Name Member ID Group # Subscriber Relationship Effective Niok oden 1 - [employer]AUTH NEEDED!!!!!! [id number] Alix Florian Self Advance Directives Includes: Current Advance DirectivesNo Advance Directives Recorded Health Concerns Includes: Active Health ConcernsNo Active Health Concerns Recorded Goals Includes: Active GoalsNo Active Goals Recorded Interventions Includes: Interventions for active GoalsNo Interventions Recorded Evaluations & Outcomes Includes: Evaluations & Outcomes for active GoalsNo Outcomes Recorded
--- OUTSIDE RECORDS SUMMARY | 2021-05-20 07:53 | CCD | Continuity of Care Document ---
Author Author Alix FLEMING MD Organization Unknown Address [address] [facility] [address] [place] [address] Phone [phone] Care Team Providers Care Unit Control Clerk Name Role Phone Abdoulaye Lockett D.M.D. AUTM [phone] Hollie Jordan D.O. AUTM Central Scheduling AUTM [phone] Enrrique Jean-Baptiste DDS AUTM [phone] Problems Active Problems Provider Date Leukoplakia of [...] lb BMI (Body Mass Index) 37.9 kg/m2 [place] Body Weight 100 lb Weight 87.998 kg BSA (Body Surface Area) 1.84 m2 02/13/2021 8:40am Height 60 inches 5'0" Weight 218.00 lb BMI (Body Mass Index) 42.6 kg/m2 [place] Body Weight 100 lb Weight 98.885 kg BSA (Body Surface Area) 1.94 m2 Results Test Acquired Date Facility Test Result H/L Range Note Laboratory test finding 03/14/2021 [facility] [address] [place] [address] [phone] Pathology Request For Service (SEE NOTE) 1 [...] 1103 Procedures Date Code Description Status 02/13/2021 01810 Office/Outpatient Established Mo d MDM 30-39 Min Completed 11/20/2020 04807 Office/Outpatient Established Lo w MDM 20-29 Min Completed 05/11/2019 [id number] Mammogram Completed 05/10/2018 [id number] Mammogram Completed 04/21/2017 [id number] Mammogram Completed 04/16/2016 [id number] Mammogram Completed Medical Devices Description No Information Available Encounters Type Date Location Provider Dx Diagnosis Office Visit 11/20/2020 9:15a [facility] Skip Fleming MD [...] 9:30 am - Skip Fleming MD at [facility] 03/19/2021 - Skip Fleming MD* 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
--- OUTSIDE RECORDS SUMMARY | 2021-05-20 07:53 | CCD | Continuity of Care Document ---
Author Author Alix WOODY PA [place] [address] Phone [phone] Care Team Providers Care Railroad Car Checker Name Role Phone Hollie Jordan D.O. AUTM Skip Fleming M.D. AUTM [phone] Reno Ibarra M.D. AUTM [phone] Jose Daniel Bey M.D. AUTM [phone] Problems Active Problems Provider Date Irritable bowel [...] 12/14/2017 Irritable bowel syndrome characterized by constipation KLELY Singh Onset: 03/31/2019 Leukoplakia of oral mucosa [...] Hair Skin Nails Capsules Unknown Saline Nasal [place] 0.65% Solution 1 spray each nostril three [...] daiy Unknown 00 Calcium 1000 + D [id number] T ablets 1 tab by mouth daily Unknown Probiotic Capsules 1 caps by mouth at night with meal or after Unknown Metamucil Smooth Texture Fiber Singles 28% Packet use at night with meal or after Unknown Alprazolam 0.25mg Tablets 1-2 tablets by mouth every 12 hours as needed for anxiety. istop: [id number] 120tabs Reno MezaO. History Medications Cephalexin 500mg Capsules 1 tab by mouth three times a day until gone 21caps Frantz Olivera.O. 02/16/2021 - 03/08/2021 Medications Administered in Office Medication SIG Qnty Indications Ordering Provider Date Immunization Administration Single Or Co mbination Injection Nurse 05/18/2019 Immunizations CPT Code Status Date Vaccine Lot # U-Pneum Given 04/26/2020 Pneumococcal,Unspecified U-Flu Given 05/18/2019 Influenza,Unspecified [id number] Given 05/18/2019 Pneumococcal Con jugate Vaccine 13 Valent For Intramuscular Use [id number] U-Flu Given 04/23/2018 Influenza,Unspecified Vital Signs Date Vital Result Comment 04/17/2021 9:40am BP Systolic 126 mmHg BP Diastolic 80 mmHg Height 60.1 inches 5'0.10" Weight 190.00 lb BMI (Body Mass Index) 37.0 kg/m2 Heart Rate 59 /min Respiratory Rate 18 /min Body Temperature 97.4 F O2 % BldC Oximetry 99 % Round O Body Weight 100 lb 03/08/2021 10:16am BP Systolic 126 mmHg BP Diastolic 82 mmHg Height 60.1 inches 5'0.10" Weight 193.25 lb BMI (Body Mass Index) 37.6 kg/m2 Heart Rate 95 /min Respiratory Rate 18 /min Body Temperature 98.1 F O2 % BldC Oximetry 96 % Round O Body Weight 100 lb Results Test Acquired Date Facility Test Result H/L Range Note Order 03/08/2021 In House Orders EKG see result in chart Inhouse Ua 02/13/2021 Inhouse Inhouse Leukocytes Trace Inhouse Nitrite Negative Inhouse Urobilinogen trace Inhouse Protein Positive Inhouse PH 7 Inhouse Hemoglobin negative Inhouse Specific [place] 1.005 Inhouse Ketones negative Inhouse Bilirubin negative Inhouse Glucose negative Laboratory test finding 02/13/2021 [facility] Outpatient T esting (Registration) [address] [place] [address] [phone] Urine Culture FULL REPORT IN L <SEE NOTE> Normal 1 Genital Culture FULL REPORT IN L <SEE NOTE> Normal 2 CBC With Differential 12/07/2020 [facility] Outpatient Negrita ting (Registration) [address] [place] [address] [phone] White Blood Count 4.0 10 Normal 4.0-10.0 [...] 36.0-66.0 Lymph % 50.0 % High 24.0-44.0 [place] % 8.3 % High 2.0-8.0 Eos % 2.8 % Normal 0.0-3.0 Baso % 0.3 % Normal 0.0-1.0 Immature Granulocyte % 0.3 % Normal 0-3.0 Nucleated Red Blood Cell % 0.0 % Normal 0-0 Neutrophils # 1.5 10 Normal 1.5-8.5 Lymph # 2.0 10 Normal 1.5-5.0 Robeson # 0.3 10 Normal 0.0-0.8 Eos # 0.1 10 Normal 0.0-0.5 Baso # 0.0 10 Normal 0.0-0.2 Comprehensive Metabolic Profil 12/07/2020 [facility] Outpa tient Testing (Registration) [address] [place] [address] [phone] Glucose, Fasting 107 mg/dL High 70-100 Blood [...] Ratio 1.1 Low 1.2-2.2 Lipid Panel 12/07/2020 [facility] Outpatient Testi (Registration) [address] [place], [place] [id number] [phone] Triglycerides Level 195 mg/dL High <150 Cholesterol [...] Little GFR Left ESRD GFR <15 on CYCLE REPAIRER Procedures Date Code Description Status 03/08/2021 81050 Office/Outpatient Established Lo w MDM 20-29 Min Completed 03/08/2021 12265 Electrocardiogram Complete Compl eted 02/13/2021 62055 Office/Outpatient Established Lo w MDM 20-29 Min Completed 01/22/2021 67794 Office/Outpatient Established Mo d MDM 30-39 Min Completed 08/06/2020 10354682 Mammogram Completed Medical Devices Description No Information Available Encounters Type Date Location Provider Dx Diagnosis Office Visit 03/08/2021 10:00a [facility] KELLY Fajardo Z01.818 Encounter for other preproce dural examination I45.81 Long QT syndrome 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, including tongue K21.9 Gastro-esophageal reflux dis ease without esophagitis K58.1 Irritable bowel syndrome wit h constipation F41.1 Generalized anxiety disorder G43.009 Migraine w/o aura, not intra ctable, w/o status migrainosus Z79.899 Other assistant teaching professor (current) dr vasquez therapy Office Visit 02/13/2021 11:20a [facility] KELLY Coffey N39.0 Urinary tract infection, sit e not specified Office Visit 01/22/2021 1:15p [facility] KELLY Fajardo R47.02 Dysphasia 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, including tongue Office Visit 12/12/2020 10:00a [facility] KELLY Fajardo Z00.00 Encntr for general adult med ical exam w/o abnormal findings M25.561 Pain in right knee M25.552 Pain in left hip K21.9 Gastro-esophageal reflux dis ease without esophagitis K58.1 Irritable bowel syndrome wit h constipation E78.00 Pure hypercholesterolemia, u nspecified F41.1 Generalized anxiety disorder G43.009 Migraine w/o aura, not intra ctable, w/o status migrainosus Z79.899 Other assistant teaching professor (current) dr christina irvin 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, including tongue Z13.820 Encounter for screening for osteoporosis Assessments Date Code Description Provider 04/17/2021 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, incl uding tongue KELLY Fajardo 04/17/2021 K58.1 Irritable bowel syndrome with co nstipation KELLY Fajardo 04/17/2021 F41.1 Generalized anxiety disorder KELLY Dickson 04/17/2021 Z79.899 Other assistant teaching professor (current) drug t herapy KELLY Fajardo 03/08/2021 [...] status migrainosus KELLY Fajardo 03/08/2021 Z79.899 Other assistant teaching professor (current) drug t herapy KELLY Fajardo 02/13/2021 [...] KELLY Fajardo 12/12/2020 F41.1 Generalized anxiety disorder Kiran KELLY Barriga 12/12/2020 G43.009 Migraine without aur a, not intractable, without status migrainosus KELLY Fajardo 12/12/2020 Z79.899 Other assistant teaching professor (current) drug t herapy KELLY Fajardo 12/12/2020 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, incl uding tongue KELLY Fajardo 12/12/2020 Z13.820 Encounter for screening for oste oporosis KELLY Fajardo Plan of Treatment Future Appointment(s):* 07/17/2021 9:30 am - KELLY Fajardo at [facility] 04/17/2021 - KELLY Fajardo* 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 Continue with routine follow up and surveillance. Consider speech therapy if needed and you have issue with swallowing or speech. * Follow up:* 3 month * K58.1 Irritable bowel syndrome with constipation * F41.1 Generalized anxiety disorder * Z79.899 Other senior living (current) drug therapy Functional Status Description No Information Available Mental Status Description No Information Available Referrals Refer to Reason for Referral Status Appt Date Jose Daniel Bey M.D. Recent ugi series shows mult iple gastric polyps with largest being one cm. She has thickened duodenal folds as well. UGI series done due to dysphagia. Please consider endoscopy to evaluate further . Sent 03/07/2021 DR. Bey's Office [address] [place] [address], [address].. [address] [phone]
--- OUTSIDE RECORDS SUMMARY | 2021-05-20 07:54 | CCD | Continuity of Care Document ---
Author Author Alix PETTY MD Organization Unknown Address [address] [place] [address], [address] [place] [address] Phone [phone] Care Team Providers Care Workers' Compensation Magistrate Name Role Phone Hollie Jordan DO AUTM Problems Description No Information Available Social History [...] Directed In Physical Therapy 30ml Pinky thomas, ELA TEACHER 02/20/2006 Fluconazole 200mg Tablets Take 1 Tablet [...] Vitamin D 2000Unit Tablets Unknown Calcium 1200 [id number] Chew tabs dose unknown Unknown Flonase Allergy [...] If Needed Unknown Alprazolam 0.25mg Tablets Bobby uLz RPA Immunizations Description No Information Available Vital Signs Date Vital Result Comment 10/04/2020 1:15pm Body Temperature 97.5 F Height 60 inches 5'0" Weight 221.25 lb BMI (Body Mass Index) 43.2 kg/m2 05/06/2019 1:54pm Body Temperature 97.2 F Height 60.5 inches 5'0.50" Weight 224.25 lb BMI (Body Mass Index) 43.1 kg/m2 Results Description No Information Available Procedures Date Code Description Status 03/18/2021 36477 Office/Outpatient Established Lo w MDM 20-29 Min Completed 03/05/2021 39466 Manual Therapy Each 15 Minutes C ompleted 03/05/2021 38487 Therapeutic Procedure, Each 15 M inutes Completed 02/20/2021 01623 Manual Therapy Each 15 Minutes C ompleted 02/20/2021 67196 Therapeutic Procedure, Each 15 M inutes Completed 02/06/2021 24949 Manual Therapy Each 15 Minutes C ompleted 02/06/2021 79959 Therapeutic Procedure, Each 15 M inutes Completed 02/04/2021 39185 Office/Outpatient Established Lo w MDM 20-29 Min Completed 01/30/2021 96287 Therapeutic Procedure, Each 15 M inutes Completed 01/24/2021 32752 Manual Therapy Each 15 Minutes C ompleted 01/24/2021 71045 Therapeutic Procedure, Each 15 M inutes Completed 01/16/2021 01312 Therapeutic Procedure, Each 15 M inutes Completed 01/02/2021 11506 Therapeutic Procedure, Each 15 M inutes Completed 12/28/2020 27724 Re-Eval Of PT Establ ished Plan Of Care 20Mins Face To Face PT/Fam Completed 12/28/2020 02995 Therapeutic Procedure, Each 15 M inutes Completed 12/20/2020 50490 X-Ray Femur Minimum 2 Views Comp leted 12/20/2020 33894 Office/Outpatient Established Mo d MDM 30-39 Min Completed 12/20/2020 65991 Therapeutic Procedure, Each 15 M inutes Completed 12/11/2020 74439 Therapeutic Procedure, Each 15 M inutes Completed 11/28/2020 41392 Therapeutic Procedure, Each 15 M inutes Completed 11/26/2020 11564 Therapeutic Procedure, Each 15 M inutes Completed 11/22/2020 28449 Therapeutic Procedure, Each 15 M inutes Completed 11/19/2020 16437 Therapeutic Procedure, Each 15 M inutes Completed 11/15/2020 55047 Therapeutic Procedure, Each 15 M inutes Completed 11/12/2020 85564 Therapeutic Procedure, Each 15 M inutes Completed 11/12/2020 36125 Office/Outpatient Established Lo w MDM 20-29 Min Completed 11/08/2020 97504 Therapeutic Procedure, Each 15 M inutes Completed 11/05/2020 31119 Therapeutic Procedure, Each 15 M inutes Completed 10/25/2020 53081 Physical Therapy Eval - Low Comp lexity Completed 10/15/2020 31580 Office/Outpatient Established Mo d MDM 30-39 Min Completed 10/09/2020 39098 MRI Lower Extremity Any Joint Co mpleted 10/09/2020 07788 MRI Lower Extremity Any Joint Co mpleted 10/04/2020 37611 Office/Outpatient Established Mo d MDM 30-39 Min Completed 10/04/2020 65029 X-Ray Femur Minimum 2 Views Comp leted Medical Devices Description No Information Available Encounters Type Date Location Provider Dx Diagnosis Office Visit 03/18/2021 9:00a Lucian Petty MD S83.241D Oth tear of medial meniscus, current injury, r knee, subs 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, left hip Office Visit 02/04/2021 8:30a Lucian Petty MD [...] r knee, subs Office Visit 10/15/2020 8:30a Lucian Petty MD S83.241A Oth tear of medial meniscus, current injury, r knee, init M23.41 Loose body in knee, right kn ee M17.11 Unilateral primary osteoarth ritis, right knee Assessments Date Code Description Provider 03/18/2021 S83.241D Other tear of medial meniscus, current injury, right knee, subsequent encounter Bobby Petty MD 03/18/2021 M16.12 Unilateral primary osteoarthriti s, left hip Bobby Petty MD 03/05/2021 S83.241D Other tear of medial meniscus, current injury, right knee, subsequent encounter Dom Cerda P.T. 03/05/2021 M16.12 Unilateral primary osteoarthriti s, left hip Dom Cerda P.T. 02/20/2021 S83.241D Other tear of medial meniscus, current injury, right knee, subsequent encounter Danamarie Ortolano, HIGH SCHOOL ACADEMIC COACH 02/20/2021 M16.12 Unilateral primary osteoarthriti s, left hip Danamarie Ortolano, HIGH SCHOOL ACADEMIC COACH 02/06/2021 S83.241D Other tear of medial meniscus, [...] injury, right knee, subsequent encounter Danamarie Ortolano, HIGH SCHOOL ACADEMIC COACH 01/30/2021 M70.62 Trochanteric bursitis, left hip Danamarie Ortolano, HIGH SCHOOL ACADEMIC COACH 01/24/2021 S83.241D Other tear of medial meniscus, current injury, right knee, subsequent encounter Danamarie Ortolano, HIGH SCHOOL ACADEMIC COACH 01/24/2021 M70.62 Trochanteric bursitis, left hip Danamarie Ortolano, HIGH SCHOOL ACADEMIC COACH 01/16/2021 S83.241D Other tear of medial meniscus, current injury, right knee, subsequent encounter Dom Cerda P.T. 01/16/2021 M70.62 Trochanteric bursitis, left hip Dom Cerda P.T. 01/02/2021 S83.241D Other tear of medial meniscus, current injury, right knee, subsequent encounter Suri Scee P.T.A. 12/28/2020 S83.241D Other tear of medial [...] current injury, right knee, subsequent encounter Suri Scee P.T.A. 11/28/2020 S83.241D Other tear of medial meniscus, current injury, right knee, subsequent encounter Dom Cerda P.T. 11/26/2020 S83.241D Other tear of medial meniscus, current injury, right knee, subsequent encounter Danamarie Ortolano, HIGH SCHOOL ACADEMIC COACH 11/22/2020 S83.241D Other tear of medial meniscus, current injury, right knee, subsequent encounter Danamarie Ortolano, HIGH SCHOOL ACADEMIC COACH 11/19/2020 S83.241D Other tear of medial meniscus, current injury, right knee, subsequent encounter Danamarie Ortolano, HIGH SCHOOL ACADEMIC COACH 11/15/2020 S83.241D Other tear of medial meniscus, current injury, right knee, subsequent encounter Danamarie Ortolano, HIGH SCHOOL ACADEMIC COACH 11/12/2020 S83.241D Other tear of medial meniscus, current injury, right knee, subsequent encounter Dom Cerda P.T. 11/12/2020 S83.241D Other tear of medial meniscus, current injury, right knee, subsequent encounter Bobby Petty MD 11/08/2020 S83.241D Other tear of medial meniscus, current injury, right knee, subsequent encounter Samantha Winstonaaronclementinemichelle, HIGH SCHOOL ACADEMIC COACH 11/05/2020 S83.241D Other tear of medial meniscus, [...] 10/09/2020 M25.561 Pain in right knee Bobby robertson MD 10/09/2020 M25.561 Pain in right knee MRI 10/04/2020 M25.561 Pain in right knee Bobby robertson MD 10/04/2020 M17.11 Unilateral primary osteoarthriti s, right knee Bobby Petty MD Plan of Treatment 03/18/2021 - Bobby Petty MD* S83.241D Other tear of medial meniscus, current injury, right knee, subsequent encounter* Follow up:* 2 months with [facility] for rt knee re-check * M16.12 Unilateral primary osteoarthritis, left hip Functional Status Description No Information Available Mental Status Description No Information Available Referrals Refer to Reason for Referral Status Appt Date Bobby Petty MD Allowed eval than needs auth to PT dept sw. Created [address] [place] [address], [address] [place] [address] [phone] Bobby Petty MD PT - 6 VISITS & 24 SERVICE U NITS OK'D FOR R KNEE FROM 01/07- 03/08/21, AUTH# [id number]. SS Created [address] [place] [address] [phone] Bobby Petty MD PT - 4 VISITS AND 16 UNITS O K'D FOR R KNEE FROM 12/03-01/02/21, AUTH# [id number]. SS Created [facility] [address] [address] [phone] Bobby Petty MD PT - 8 VISITS AND 32 UNITS O K'D FOR R KNEE FROM 10/29-11/28/20, AUTH #[id number]. SS Created [address] [place] [address] [phone] Bobby Petty MD PT ALLOWED EVAL THEN NEEDS AUTH TO PT DEPT. N T Created [address] [place] [phone] Bobby Petty MD MRI APPROVED PER JAVI ÁLVAREZ FOR MRI OF RIGHT KNEE (26350) TO MRI. DG Created [address] [place] [address] [phone]
--- OUTSIDE RECORDS SUMMARY | 2021-05-20 07:54 | CCD | Continuity of Care Document ---
Author Author Alix JACKSON F.N.P. Organization Unknown Address [address], [address] [place] [address] Phone [phone] Care Team Providers Care Computer Consultant Name Role Phone Hollie Jordan MD AUTM Problems Description No Information Available Social History Type Date Description Comments Sex Unknown Tobacco Use Start: Unknown Never Smoked Cigarettes ETOH Use Rarely consumes alcohol Sun Exposure minimum amount of sun exposure Sun Exposure Has never experienced blistering from sunburns Sun Exposure Uses > 30 SPF Sun Exposure Has never used tanning bed Allergies, Adverse Reactions, Alerts Active Allergies Reaction Severity Comments Date Claritin 04/03/2008 Entex 04/03/2008 Erythromycin 04/03/2008 Macrobid 04/03/2008 Penicillin 04/03/2008 Retin-A 04/03/2008 Tavist Allergy 04/03/2008 Tetracycline 04/03/2008 Lidocaine 04/03/2008 IVP Contrast 04/03/2008 sulfa Rashes 04/18/2009 Procaine 02/10/2017 Konsyl Fiber 02/10/2017 Acai Fruit Pulp 02/10/2017 Terfenadine 02/20/2020 Oxycodone 02/20/2020 Medications Active Medications SIG Qnty Indications Ordering Provide r Date Flonase Allergy Relief 50mcg/Act Suspension two sprays in each nostril qd. 47.400ml Katiana Jackson, F.N.P. 02/16/2019 Dapsone 25mg Tablets take 1 tablet once daily 90tabs Katiana Jackson, F.N.P. 2016 Clindamycin Phosphate 1% Solution apply to scalp sparingly twice a day x 10 days as needed rash. Please put on file. Patient will call when needs refill. 60ml Ana RichardsNSundarP. 02/10/2017 Topomax Ana RhodesNSundarP. 04/03/2008 Estradiol Unknown Famotidine Unknown Estroven Multi-Symptom Menopause Relief Maximum Strength Unknown Hair/Skin/Nails/Biotin Unknown Miralax Unknown Magnesium Unknown Melatonin Unknown Colace 2-In-1 Unknown Lutein 6mg Tablets 1 by mo uth every day Unknown Vitamin E 400Unit Capsules 1 by mouth every day Unknown Dicyclomine HCL 10mg Capsules Unknown Alprazolam 0.25mg Tablets 1 by mouth twice a day Unknown Restasis Unknown Allergy Eye Drops Unknown 000 Calcium + D Unknown Probiotic Unknown Metamucil Unknown Fish Oil Unknown Vitamin B Complex Unknown 000 Vitamin D Unknown Protonix Unknown Immunizations Description No Information Available Vital Signs Date Vital Result Comment 02/19/2021 8:36am BP Systolic 122 mmHg BP Diastolic 84 mmHg Weight 196.00 lb Respiratory Rate 17 /min 03/02/2020 10:22am BP Systolic 118 mmHg BP Diastolic 62 mmHg Body Temperature 97.9 F Results Description No Information Available Procedures Date Code Description Status 02/19/2021 43039 Office/Outpatient Established Mo d MDM 30-39 Min Completed Medical Devices Description No Information Available Encounters Type Date Location Provider Dx Diagnosis Office Visit 02/19/2021 8:45a Main Office Ana RhodesN.P. 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 02/19/2021 D22.61 Melanocytic nevi of right upper limb, including shoulder Shireen Rhodes.N.P. 02/19/2021 L81.4 Other melanin hyperpigmentation Katiana Jackson F.N.P. 02/19/2021 L82.1 Other seborrheic keratosis Myriam Jackson F.N.P. 02/19/2021 L73.8 Other specified follicular disor ders Katiana Jackson F.N.P. 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 02/19/2021 L84 Corns and callosities Katiana Jackson F.N.P. 02/19/2021 Z87.2 Personal history of diseases of the skin and subcutaneous tissue Ana RhodesN.P. 02/19/2021 Z08 Encounter for follow -up examination after completed treatment for malignant neoplasm Ana RhodesNSundarP. Plan of Treatment Future Appointment(s):* 02/20/2022 8:15 am - Katiana Jackson F.N.P. at Main Office 02/19/2021 - Shireen Rhodes.N.P.* D22.5 Melanocytic nevi of trunk* Comments:* Nevi on trunk appear healthy. Monitor for changes. Sun protection and sunscreen use discussed. Discussed if any moles change in shape or color, itch, bleed or burn to contact the office for evaluation sooner than their interval appointment. * D22.61 Melanocytic nevi of right upper limb, including shoulder* Comments:* Nevus located on R arm appears healthy. Monitor for changes. * L81.4 Other melanin hyperpigmentation* Comments:* Solar lentigines - ReassuranceDiscussed that solar lentignes appear from the sun that was received years agoSunscreen use and sun protection discussed. * L82.1 Other seborrheic keratosis* Comments:* Reassurance Discussed seborrheic keratoses are benign warty growths on the skin that appear with age. They are not contagious. 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 Follows with Dr. Payne for regular blood work * L84 Corns and callosities* Comments:* Discussed diagnosisCan try using Pumice stone after showering * Z87.2 Personal history of diseases of the skin and subcutaneous tissue* Comments:* Continue to monitor for recurrence of SCC in situ. * Z08 Encounter for follow-up examination after completed treatment for malignant neoplasm* Comments:* Reviewed sign and symptoms of skin cancer, including ABCDE's of melanoma.Discussed the importance of using a sunscreen with Zinc Oxide or Titanium Dioxide and to reapply every 2-3 hours.Discussed importance of avoidance of tanning beds and excessive UV exposure.Discussed the importance of monthly self skin examinations.Recommended a skin cancer screening on a yearly basis.Discussed increased risk of skin cancer due to sunburn. See above.See above * Follow up:* Yearly/PRN - [facility] Functional Status Description No Information Available Mental Status Description No Information Available Referrals Description No Information Available
--- OUTSIDE RECORDS SUMMARY | 2021-05-20 07:54 | CCD | Continuity of Care Document ---
Author Author Alix WOODY PA Organization Unknown Address [place] [address] Phone [phone] Care Team Providers Care Senior Hr Manager Name Role Phone Hollie Jordan D.O. AUTM [phone] Skip Fleming M.D. AUTM [phone] Reno Ibarra M.D. AUTM Jose Daniel Bey M.D. AUTM [phone] Problems Active Problems Provider Date Irritable bowel [...] bowel movement 36units K58.2 Reno BishopOSundar 12/14/2018 [facility] pleas e dispense 1 cane dx: m54.15 prognosis: fair duration: 99 M25.561 Unknown M23.8x1 Cranberry Extract 250mg Tablets Unknown Saline Nasal [place] 0.65% Solution 1 spray each nostril three times a day Unknown Hair Skin Nails Capsules Unknown Melatonin 5mg Capsules one tablet at night as needed Unknown Flonase Allergy Relief 50mcg/Act Suspension 2 sprays in each nostril every other day Unknown Alamay Solution 1-2 drops in each eye 4 times a day Unknown Leutein 6mg 1 tablet by mout h daily Unknown Estroven Nighttime Tablets Unknown Eye Drops 0.05% Solution u ses as needed Unknown Fish Oil 1200mg Capsules DR 2 by mouth every day Unknown Dapsone 25mg Tablets 1 cap by mouth daily Unknown Restasis 0.05% Emulsion 1 drop in each eye 3-4 times a day Unknown Vitamin E 400Unit Capsules 2 caps by mouth daily Unknown Vitamin B-12 ER 1000mcg Tablets ER one tablet by mouth once a day Unknown Vitamin D3 Maximum Strength 5000Unit Capsules 1 cap by mouth daiy Unknown 00 Calcium 1000 + D [id number] T ablets 1 tab by mouth daily Unknown Probiotic Capsules 1 caps by mouth at night with meal or after Unknown 000 Metamucil Smooth Texture Fiber Singles 28% Packet use at night with meal or after Unknown Alprazolam 0.25mg Tablets 1-2 tablets by mouth every 12 hours as needed for anxiety. istop: [id number] 120tabs Frantz Meza.O. History Medications Cephalexin 500mg Capsules 1 tab by mouth three times a day until gone 21caps Reno OliveraO. 02/16/2021 - 03/08/2021 Cephalexin 500mg Capsules take one capsule by mouth every 12 hours for 7 days 14caps Reno HaywoodO. 10/14/2020 - 12/12/2020 Ciprofloxacin HCL 500mg Tablets one tablet every 12 hours 10tabs N39.0 Reno MezaO. 10/10 - 12/12/2020 Diflucan 200mg Tablets take one tablet after finishing antibiotics and two days later if symptoms persist 3tabs N39.0 Reno MezaO. 10/10/2020 - 12/12/2020 Otoniel Auto Glides/5 Adjustment Holes/- 08/03" -08/03" Misc duration: 99 prognosis: good. 1units M25.561 Reno TabaresO. 09/24/2020 - 12/21/2020 M23.8x1 Medications Administered in Office Medication SIG Qnty Indications Ordering Provider Date Immunization Administration Single Or Co mbination Injection Nurse 05/18/2019 Immunizations CPT Code Status Date Vaccine Lot # U-Pneum Given 04/26/2020 Pneumococcal,Unspecified U-Flu Given 05/18/2019 Influenza,Unspecified [id number] Given 05/18/2019 Pneumococcal Con jugate Vaccine 13 Valent For Intramuscular Use [id number] U-Flu Given 04/23/2018 Influenza,Unspecified Vital Signs Date Vital Result Comment 03/08/2021 10:16am BP Systolic 126 mmHg BP Diastolic 82 mmHg Height 60.1 inches 5'0.10" Weight 193.25 lb BMI (Body Mass Index) 37.6 kg/m2 Heart Rate 95 /min Respiratory Rate 18 /min Body Temperature 98.1 F O2 % BldC Oximetry 96 % Miller Body Weight 100 lb 02/13/2021 11:09am BP Systolic 120 mmHg BP Diastolic 70 mmHg Height 60.1 inches 5'0.10" Weight 199.00 lb BMI (Body Mass Index) 38.7 kg/m2 Heart Rate 69 /min Respiratory Rate 20 /min Body Temperature 97.4 F O2 % BldC Oximetry 99 % Miller Body Weight 100 lb Results Test Acquired Date Facility Test Result H/L Range Note Order 03/08/2021 In House Orders EKG see result in chart Laboratory test finding 02/13/2021 [facility] Outpatient T esting (Registration) [address] [place] [address] [id number] [phone] Urine Culture FULL REPORT IN L <SEE NOTE> Normal 1 Genital Culture FULL REPORT IN L <SEE NOTE> Normal 2 Inhouse Ua 02/13/2021 Inhouse Inhouse Leukocytes Trace Inhouse Nitrite Negative Inhouse Urobilinogen trace Inhouse Protein Positive Inhouse PH 7 Inhouse Hemoglobin negative Inhouse Specific [place] 1.005 Inhouse Ketones negative Inhouse Bilirubin negative Inhouse Glucose negative Comprehensive Metabolic Profil 12/07/2020 [facility] Outpa tient Testing (Registration) [address] [place] [phone] Glucose, Fasting 107 mg/dL High 70-100 Blood [...] Ratio 1.1 Low 1.2-2.2 Lipid Panel 12/07/2020 [facility] Outpatient Testi ng (Registration) [address] [place] [address] [phone] Triglycerides Level 195 mg/dL High <150 Cholesterol Level 188 mg/dL Normal <200 HDL Cholesterol 43 mg/dL Normal >40 LDL Cholesterol 106 mg/dL High <100 Non-HDL-C 145 mg/dL Normal Cholesterol Risk Ratio 4.372 Normal <5 CBC With Differential 12/07/2020 [facility] Outpatient Negrita rosalbag (Registration) [address] [place] [address] [phone] White Blood Count 4.0 10 Normal 4.0-10.0 [...] 36.0-66.0 Lymph % 50.0 % High 24.0-44.0 Divide % 8.3 % High 2.0-8.0 Eos % 2.8 % Normal 0.0-3.0 Baso % 0.3 % Normal 0.0-1.0 Immature Granulocyte % 0.3 % Normal 0-3.0 Nucleated Red Blood Cell % 0.0 % Normal 0-0 Neutrophils # 1.5 10 Normal 1.5-8.5 Lymph # 2.0 10 Normal 1.5-5.0 Divide # 0.3 10 Normal 0.0-0.8 Eos # 0.1 10 Normal 0.0-0.5 Baso # 0.0 10 Normal 0.0-0.2 Inhouse Ua 10/10/2020 Inhouse Inhouse Leukocytes ++ Inhouse Nitrite + Inhouse Urobilinogen 1 Inhouse Protein normal Inhouse PH 6 Inhouse Hemoglobin positive Inhouse Specific [place] 1.020 Inhouse Ketones neg Inhouse Bilirubin neg Inhouse Glucose neg Laboratory test finding 10/10/[address] [address] [phone] Genital Culture FULL REPORT IN L <SEE NOTE> Normal 4 Urine Culture FULL REPORT IN L <SEE NOTE> Normal 5 CBC With Differential 09/17/[address] [address] [phone] White Blood Count 4.4 10 Normal 4.0-10.0 Red Blood Count 4.36 10 Normal 4.00-5.40 Hemoglobin 12.5 g/dL Normal 12.0-15.5 Hematocrit 40.7 % Normal 36.0-47.0 Mean Corpuscular Volume 93.3 fl Normal 80.0-96.0 Mean Corpuscular Hemoglobin 28.7 pg Normal 27.0-33.0 Mean Corpuscular HGB Conc 30.7 g/dL Low 32.0-36.5 Red Cell Distribution Width 13.6 % Normal 11.5-14.5 Platelet Count, Automated 205 10 Normal 150-450 Neutrophils % 42.0 % Normal 36.0-66.0 Lymph % 48.0 % High 24.0-44.0 Divide % 7.7 % Normal 2.0-8.0 Eos % 1.6 % Normal 0.0-3.0 Baso % 0.5 % Normal 0.0-1.0 Immature Granulocyte % 0.2 % Normal 0-3.0 Nucleated Red Blood Cell % 0.0 % Normal 0-0 Neutrophils # 1.9 10 Normal 1.5-8.5 Lymph # 2.1 10 Normal 1.5-5.0 Divide # 0.3 10 Normal 0.0-0.8 Eos # 0.1 10 Normal 0.0-0.5 Baso # 0.0 10 Normal 0.0-0.2 Comprehensive Metabolic Profil 09/17/[address] [address] [phone] Glucose, Fasting 101 mg/dL High 70-100 Blood Urea Nitrogen 23 mg/dL High 7-18 Creatinine For GFR 1.00 mg/dL Normal 0.55-1.30 Glomerular Filtration Rate 58.2 Normal >39 6 Sodium Level 140 mEq/L Normal 136-145 Potassium Serum 4.4 mEq/L Normal 3.5-5.1 Chloride Level 109 mEq/L High 98-107 Carbon Dioxide Level 25 mEq/L Normal 21-32 Anion Gap 6 mEq/L Low 8-16 Calcium Level 9.3 mg/dL Normal 8.8-10.2 Ast/Sgot 23 U/L Normal 7-37 Alt/SGPT 39 U/L Normal 12-78 Alkaline Phosphatase 104 U/L Normal 45-117 Bilirubin,Total 0.5 mg/dL Normal 0.2-1.0 Total Protein 7.7 GM/DL Normal 6.4-8.2 Albumin 4.1 GM/DL Normal 3.2-5.2 Albumin/Globulin Ratio 1.1 Low 1.2-2.2 Lipid Panel 09/17/[address] [phone] Triglycerides Level 107 mg/dL Normal <150 Cholesterol Level 189 mg/dL Normal <200 HDL Cholesterol 53 mg/dL Normal >40 LDL Cholesterol 115 mg/dL High <100 Non-HDL-C 136 mg/dL Normal Cholesterol Risk Ratio 3.566 Normal <5 FT4&TSH Panel 09/17/[address] [address] [phone] Thyroid Stimulating Hormone 1.250 uIU/ML Normal 0. 358-3.740 Free T4 0.88 ng/dL Normal 0.76-1.46 1 FULL REPORT IN LAB NOTES ([facility]). ORGANISM 1: KLEBSIELLA PNEUMONIAE COLONY COUNT >100,000 [...] REPORT IN LAB NOTES ([facility]). NORMAL ARUNA PRESENT ORGANISM 1: PROTEUS MIRABILIS [...] Little GFR Left ESRD GFR <15 on MITTEN STITCHER 4 FULL REPORT IN LAB NOTES ([facility]). NORMAL ARUNA PRESENT ORGANISM 1: PROTEUS MIRABILIS QUANTITY OF GROWTH HEAVY ORGANISM 2: KLEBSIELLA PNEUMONIAE QUANTITY OF GROWTH [...] q8h <=1 S CEFAZOLIN IV 1gm q8h 8 S LEVOFLOXACIN IV 500mg qd <=0.12 S [...] SPCTRM BETA LACTAMASE IV NEGATIVE FOR ESBL 5 FULL REPORT IN LAB NOTES ([facility]). NO GROWTH CLINICAL SIGNIFICANCE 2 OR MORE ORGANISMS 6 Units are mL/min/1.73 m2 Chronic Kidney Disease Staging per NKF: Stage I & II GFR >=60 Normal to Mildly Decreased Stage III GFR 30-59 Moderately Decreased Stage IV GFR 15-29 Severely Decreased Stage V GFR <15 Very Little GFR Left ESRD GFR <15 on MITTEN STITCHER Procedures Date Code Description Status 03/08/2021 27564 Office/Outpatient Established Lo w MDM 20-29 Min Completed 03/08/2021 74899 Electrocardiogram Complete Compl eted 02/13/2021 03886 Office/Outpatient Established Lo w MDM 20-29 Min Completed 01/22/2021 99360 Office/Outpatient Established Mo d MDM 30-39 Min Completed 10/10/2020 59188 Office/Outpatient Established Mo d MDM 30-39 Min Completed 09/24/2020 48247 Office/Outpatient Established Lo w MDM 20-29 Min Completed 09/13/2020 31080 Office/Outpatient Established Mo d MDM 30-39 Min Completed 08/06/2020 [id number] Mammogram Completed Medical Devices Description No Information Available Encounters Type Date Location Provider Dx Diagnosis Office Visit 03/08/2021 10:00a Family [facility] w KELLY Wilson Z01.818 Encounter for other preproce dural examination I45.81 Long QT syndrome 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, including tongue K21.9 Gastro-esophageal reflux dis ease without esophagitis K58.1 Irritable bowel syndrome wit h constipation F41.1 Generalized anxiety disorder G43.009 Migraine w/o aura, not intra ctable, w/o status migrainosus Z79.899 Other rat exterminator (current) dr christina irvin Office Visit 02/13/2021 11:20a [facility] KELLY Coffey N39.0 Urinary tract infection, sit e not specified Office Visit 01/22/2021 1:15p [facility] KELLY Fajardo R47.02 Dysphasia 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, including tongue Office Visit 12/12/2020 10:00a [facility] KELLY Fajardo Z00.00 Encntr for general adult med ical exam w/o abnormal findings M25.561 Pain in right knee M25.552 Pain in left hip K21.9 Gastro-esophageal reflux dis ease without esophagitis K58.1 Irritable bowel syndrome wit h constipation E78.00 Pure hypercholesterolemia, u nspecified F41.1 Generalized anxiety disorder G43.009 Migraine w/o aura, not intra ctable, w/o status migrainosus Z79.899 Other rat exterminator (current) dr vasquez therapy 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 , unspecified Assessments Date Code Description Provider 03/08/2021 Z01.818 Encounter for other preprocedura l examination KELLY Fajardo 03/08/2021 I45.81 Long QT syndrome KELLY Fajardo 03/08/2021 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, incl uding tongue KELLY Fajardo 03/08/2021 K21.9 Gastro-esophageal reflux disease without esophagitis KELLY Fajardo 03/08/2021 K58.1 Irritable bowel syndrome with co nstipation KELLY Fajardo 03/08/2021 F41.1 Generalized anxiety disorder [facility] KELLY Barriga 03/08/2021 G43.009 Migraine without aur a, not intractable, without status migrainosus KELLY Fajardo 03/08/2021 Z79.899 Other group home (current) drug t herapy KELLY Fajardo 02/13/2021 [...] status migrainosus KELLY Fajardo 12/12/2020 Z79.899 Other rat exterminator (current) drug t herapy KELLY Fajardo 12/12/2020 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, incl uding tongue KELLY Fajardo 12/12/2020 Z13.820 Encounter for screening for oste oporosis KELLY Fajardo 10/10/2020 N39.0 Urinary tract infection, site no t specified KELLY Fajardo 09/24/2020 M25.561 Pain in right knee KELLY Lindsey 09/13/2020 K21.9 Gastro-esophageal reflux disease without esophagitis Frantz Meza.O. 09/13/2020 K58.1 Irritable bowel syndrome with co nstipation Hollie Melton D.O. 09/13/2020 E78.00 Pure hypercholesterolemia, unspe cified Hollie Jordan D.O. 09/13/2020 F41.1 Generalized anxiety disorder Dia Jordan D.O. 09/13/2020 G43.009 Migraine without aur a, not intractable, without status migrainosus Hollie Jordan D.O. 09/13/2020 Z88.0 Allergy status to penicillin Dia Jordan D.O. 09/13/2020 Z88.1 Allergy status to other antibiot ic agents Hollie Jordan D.O. 09/13/2020 Z88.2 Allergy status to sulfonamides Radha Jordan D.O. 09/13/2020 Z88.8 Allergy status to other drugs, m edicaments and biological craig Hollie Jordan D.O. 09/13/2020 Z91.041 Radiographic dye allergy status Frantz Meza.O. 09/13/2020 Z79.899 Other group home (current) drug t herapy Hollie Jordan D.O. 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 Plan of Treatment Future Appointment(s):* 04/17/2021 9:40 am - KELLY Fajardo at [facility] Functional Status Description No Information Available Mental Status Description No Information Available Referrals Refer to Reason for Referral Status Appt Date Jose Daniel Bey M.D. Recent ugi series shows mult iple gastric polyps with largest being one cm. She has thickened duodenal folds as well. UGI series done due to dysphagia. Please consider endoscopy to evaluate further . Sent 03/07/2021 DR. Bey's Office [address] [facility] [address] [phone] Reno Ibarra M.D. Lateral popliteal cyst 2.8 x 1.2 x 1.8 cm. please consider draining Sent [facility] [address] [place] [address] [phone]
--- OUTSIDE RECORDS SUMMARY | 2021-05-20 07:54 | CCD | Continuity of Care Document ---
Author Author Alix CERDA P.T. Organization Unknown Address [address] [place] [address] Phone [phone] Care Team Providers Care Supervisor Production Department Name Role Phone Hollie Jordan DO AUTM Problems Description No Information Available Social History Type Date Description Comments Sex Unknown ETOH Use Rarely consumes alcohol Tobacco Use Start: Unknown Denies Smoking Allergies, Adverse Reactions, Alerts Active Allergies Reaction Severity Comments Date Erythromycin 05/06/2019 sulfa drugs 05/06/2019 Penicillin 05/06/2019 Nitrofurantoin 05/06/2019 Tetracycline 05/06/2019 Novocet Lotion 05/06/2019 Retin-A 05/06/2019 Sedane 05/06/2019 Tavist 05/06/2019 Oxycodone 05/06/2019 Lidocaine 05/06/2019 IVP Dye 05/06/2019 Gluten 05/06/2019 Konofed A JR 10/04/2020 Prebenzaminu 10/04/2020 Environmental 10/04/2020 Hay Fever 10/04/2020 Medications Active Medications SIG Qnty Indications Ordering Provide r Date Anexsia 7.5/325MG 1 Q 4-6 HRS prn/Pain 30units JARAD Graham 06/25/2006 Dexamethasone Sodium Phosphate (4m g,1ML) as Directed In Physical Therapy 30ml JARAD Sullivan 02/20/2006 Fluconazole 200mg Tablets Take 1 Tablet [...] Vitamin D 2000Unit Tablets Unknown Calcium 1200 [id number]-Ymkg Chew tabs dose unknown Unknown Flonase Allergy [...] Information Available Procedures Date Code Description Status 02/20/2021 46595 Therapeutic Procedure, Each 15 M inutes Completed 02/20/2021 36658 Manual Therapy Each 15 Minutes C ompleted 02/06/2021 08070 Manual Therapy Each 15 Minutes C ompleted 02/06/2021 57288 Therapeutic Procedure, Each 15 M inutes Completed 02/04/2021 07331 Office/Outpatient Established Lo w MDM 20-29 Min Completed 01/30/2021 53396 Therapeutic Procedure, Each 15 M inutes Completed 01/24/2021 71583 Manual Therapy Each 15 Minutes C ompleted 01/24/2021 99886 Therapeutic Procedure, Each 15 M inutes Completed 01/16/2021 43064 Therapeutic Procedure, Each 15 M inutes Completed 01/02/2021 53896 Therapeutic Procedure, Each 15 M inutes Completed 12/28/2020 31896 Re-Eval Of PT Establ ished Plan Of Care 20Mins Face To Face PT/Fam Completed 12/28/2020 67063 Therapeutic Procedure, Each 15 M inutes Completed 12/20/2020 65581 Office/Outpatient Established Mo d MDM 30-39 Min Completed 12/20/2020 93003 Therapeutic Procedure, Each 15 M inutes Completed 12/20/2020 90544 X-Ray Femur Minimum 2 Views Comp leted 12/11/2020 12908 Therapeutic Procedure, Each 15 M inutes Completed 11/28/2020 04732 Therapeutic Procedure, Each 15 M inutes Completed 11/26/2020 18528 Therapeutic Procedure, Each 15 M inutes Completed 11/22/2020 48210 Therapeutic Procedure, Each 15 M inutes Completed 11/19/2020 94579 Therapeutic Procedure, Each 15 M inutes Completed 11/15/2020 26600 Therapeutic Procedure, Each 15 M inutes Completed 11/12/2020 40995 Office/Outpatient Established Lo w MDM 20-29 Min Completed 11/12/2020 61884 Therapeutic Procedure, Each 15 M inutes Completed 11/08/2020 68674 Therapeutic Procedure, Each 15 M inutes Completed 11/05/2020 09975 Therapeutic Procedure, Each 15 M inutes Completed 10/25/2020 06185 Physical Therapy Eval - Low Comp lexity Completed 10/15/2020 56852 Office/Outpatient Established Mo d MDM 30-39 Min Completed 10/09/2020 58651 MRI Lower Extremity Any Joint Co mpleted 10/09/2020 73128 MRI Lower Extremity Any Joint Co mpleted 10/04/2020 20997 Office/Outpatient Established Mo d MDM 30-39 Min Completed 10/04/2020 14112 X-Ray Femur Minimum 2 Views Comp leted Medical Devices Description No Information Available Encounters Type Date Location Provider Dx Diagnosis Office Visit 02/04/2021 8:30a Lucian Whitfield MD S83.241D Oth tear of medial meniscus, current injury, r knee, subs 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, left hip Office Visit 12/20/2020 8:45a Lucian Whitfield MD S83.241D Oth tear of medial meniscus, current injury, r knee, subs M70.62 Trochanteric bursitis, left hip Office Visit 11/12/2020 8:45a Lucian Whitfield MD S83.241D Oth tear of medial meniscus, current injury, r knee, subs Office Visit 10/15/2020 8:30a Lucian Whitfield MD S83.241A Oth tear of medial meniscus, current injury, r knee, init M23.41 Loose body in knee, right kn ee M17.11 Unilateral primary osteoarth ritis, right knee Assessments Date Code Description Provider 02/20/2021 S83.241D Other tear of medial meniscus, current injury, right knee, subsequent encounter Danamarie Ortolano, TRANSMISSION CALIBRATION ENGINEER 02/20/2021 M16.12 Unilateral primary osteoarthriti s, left hip Danamarie Ortolano, TRANSMISSION CALIBRATION ENGINEER 02/06/2021 S83.241D Other tear of medial meniscus, current injury, right knee, subsequent encounter Dom Cerda P.T. 02/06/2021 M16.12 Unilateral primary osteoarthriti s, left hip Dom Cerda P.T. 02/04/2021 S83.241D Other tear of medial meniscus, current injury, right knee, subsequent encounter Bobby Whitfield MD 02/04/2021 M16.12 Unilateral primary osteoarthriti s, left hip Bobby Whitfield MD 01/30/2021 S83.241D Other tear of medial meniscus, current injury, right knee, subsequent encounter Danamarie Ortolano, TRANSMISSION CALIBRATION ENGINEER 01/30/2021 M70.62 Trochanteric bursitis, left hip Danamarie Ortolano, TRANSMISSION CALIBRATION ENGINEER 01/24/2021 S83.241D Other tear of medial meniscus, current injury, right knee, subsequent encounter Danamarie Ortolano, TRANSMISSION CALIBRATION ENGINEER 01/24/2021 M70.62 Trochanteric bursitis, left hip Danamarie Ortolano, TRANSMISSION CALIBRATION ENGINEER 01/16/2021 S83.241D Other tear of medial meniscus, [...] current injury, right knee, subsequent encounter Bobby Whitfield MD 12/20/2020 M70.62 Trochanteric bursitis, left hip Bobby Whitfield MD 12/11/2020 S83.241D Other tear of medial meniscus, current injury, right knee, subsequent encounter Suri Crane P.T.A. 11/28/2020 S83.241D Other tear of medial meniscus, current injury, right knee, subsequent encounter Dom Cerda P.T. 11/26/2020 S83.241D Other tear of medial meniscus, current injury, right knee, subsequent encounter Danamarie Ortolano, TRANSMISSION CALIBRATION ENGINEER 11/22/2020 S83.241D Other tear of medial meniscus, current injury, right knee, subsequent encounter Danamarie Ortolano, TRANSMISSION CALIBRATION ENGINEER 11/19/2020 S83.241D Other tear of medial meniscus, current injury, right knee, subsequent encounter Danamarie Ortolano, TRANSMISSION CALIBRATION ENGINEER 11/15/2020 S83.241D Other tear of medial meniscus, current injury, right knee, subsequent encounter Danamarie Ortolano, TRANSMISSION CALIBRATION ENGINEER 11/12/2020 S83.241D Other tear of medial meniscus, current injury, right knee, subsequent encounter Dom Cerda P.T. 11/12/2020 S83.241D Other tear of medial meniscus, current injury, right knee, subsequent encounter Bobby Whitfield MD 11/08/2020 S83.241D Other tear of medial meniscus, current injury, right knee, subsequent encounter Danamarie Ortolano, TRANSMISSION CALIBRATION ENGINEER 11/05/2020 S83.241D Other tear of medial meniscus, current injury, right knee, subsequent encounter Dom Cerda P.T. 10/25/2020 S83.241D Other tear of medial meniscus, current injury, right knee, subsequent encounter Dom Cerda P.T. 10/15/2020 S83.241A Other tear of medial meniscus, current injury, right knee, initial encounter Bobby Whitfield MD 10/15/2020 M23.41 Loose body in knee, right knee S renita Whitfield MD 10/15/2020 M17.11 Unilateral primary osteoarthriti s, right knee Bobby Whitfield MD 10/09/2020 M25.561 Pain in right knee Bobby robertson MD 10/09/2020 M25.561 Pain in right knee MRI 10/04/2020 M25.561 Pain in right knee Bobby robertson MD 10/04/2020 M17.11 Unilateral primary osteoarthriti s, right knee Bobyb Whitfield MD Plan of Treatment Future Appointment(s):* 03/18/2021 9:00 am - Bobby Whitfield MD at [facility] Functional Status Description No Information Available Mental Status Description No Information Available Referrals Refer to Dr Reason for Referral Status Appt Date Bobby Whitfield MD Allowed eval than needs auth to PT dept sw. Created [address] [place] [phone] Bobby Whitfield MD PT - 6 VISITS & 24 SERVICE U NITS OK'D FOR R KNEE FROM 01/07- 03/08/21, AUTH# [id number]. SS Created [address] [place] [phone] Bobby Whitfield MD PT - 4 VISITS AND 16 UNITS O K'D FOR R KNEE FROM 12/03-01/02/21, AUTH# [id number]. SS Created [address] [place] [phone] Bobby Whitfield MD PT - 8 VISITS AND 32 UNITS O K'D FOR R KNEE FROM 10/29-11/28/20, AUTH #[id number]. SS Created [address] [place] [phone] Bobby Whitfield MD PT ALLOWED EVAL THEN NEEDS AUTH TO PT DEPT. N T Created [address] [place] [phone] Bobby Whitfield MD MRI APPROVED PER [employer] FOR MRI OF RIGHT KNEE (13159) TO MRI. DG Created [facility] [address] [address] [phone]
--- OUTSIDE RECORDS SUMMARY | 2021-05-20 07:54 | CCD | Continuity of Care Document ---
Author Author Alix BEY M.D. Organization Unknown Address [address] [place] [address] Phone [phone] Care Team Providers Care Factory Assembler Name Role Phone JcgladisOtf castellon AUTM [phone] Problems Active Problems Provider Date Dysphagia Jose Daniel Bey M.D. Onset: 03/07/20 21 Gastroesophageal reflux disease Jose Daniel Bey M.D. Ons et: 03/08/2015 Screening for malignant neoplasm of colon Jose Daniel dawn M.D. Onset: 03/08/2015 Social History Type Date Description Comments Sex Unknown ETOH Use Denies alcohol use Tobacco Use Start: Unknown Patient smoking status is unknow n Allergies, Adverse Reactions, Alerts Active Allergies Criticality Reaction | Severity Comments Date Erythromycin Unable to assess criticality 03/08/2015 Sulfa Antibiotics Unable to assess criticality 03/08/2015 Penicillin Unable to assess criticality 03/08/2015 Macrobid Unable to assess criticality 03/08/2015 Tetracycline Unable to assess criticality 03/08/2015 Novocet Lotion Unable to assess criticality 03/08/2015 Konofed A JR Unable to assess criticality 03/08/2015 Prebenzaminu Unable to assess criticality 03/08/2015 Retin-A Unable to assess criticality 03/08/2015 Sedane Unable to assess criticality 03/08/2015 Tavist Unable to assess criticality 03/08/2015 Oxycodone Unable to assess criticality 03/08/2015 Lidocaine Unable to assess criticality 03/08/2015 IVP Dye Unable to assess criticality 03/08/2015 Medications Active Medications SIG Qnty Indications Ordering Provide r Date Sutab [id number] Tablets as directed 1box Jose Daniel Bey M.D. 03/07/2021 Famotidine 20mg Tablets Unknown Saline Nasal [place] 0.65% Solution Unknown Lutein 6mg Capsules Unknown Pataday 0.7% Solution Unknown Estroven Complete Multi-Symptom 4mg Tablets Unknown Fish Oil 1200mg Capsules DR Unknown Cranberry 450mg Capsules Unknown Hair/Skin/Nails Capsules Unknown Miralax 17GM/Scoop Powder mix one capful (17gm) in 8 ounces of water and drink once daily Unknown Melatonin 5mg Capsules Unknown Magnesium 200mg Chewtabs Unknown Colace 100mg Capsules 1 cap by mouth twice a day Unknown Flonase Allergy Relief 50mcg/Act Suspension Unknown Restasis 0.05% Emulsion as Di rected Unknown Vitamin E 400Unit Capsules 2 by mouth every day Unknown Vitamin B-12 1000mcg Tablets Sub 1 by mouth every day Unknown Vitamin D OTC Tablets qd Unknown Calcium D Tablets Daily Unknown Probiotic Capsules Daily Unknown Metamucil Powder Daily Unknown Dapsone 25mg Tablets qd as Ne eded Unknown Protonix 40mg Tablets DR 1 by mouth every day Unknown Topamax 25mg Tablets MDD 4 pr n Unknown Alprazolam 0.25mg Tablets MDD 4 Unknown Immunizations Description No Information Available Vital Signs Date Vital Result Comment 03/07/2021 3:06pm Height 60 inches 5'0" Weight 193.00 lb BP Systolic 123 mmHg BP Diastolic 78 mmHg Heart Rate 68 /min BMI (Body Mass Index) 37.7 kg/m2 Weight 87.545 kg Body Temperature 96.8 F 03/08/2015 3:02pm Height 60 inches 5'0" Weight 204.00 lb BP Systolic 123 mmHg BP Diastolic 89 mmHg Heart Rate 90 /min BMI (Body Mass Index) 39.8 kg/m2 Weight 92.534 kg Results Description No Information Available Procedures Date Code Description Status 03/07/2021 64241 Office/Outpatient New Low MDM 30 -44 Minutes Completed Medical Devices Description No Information Available Encounters Type Date Location Provider Dx Diagnosis Office Visit 03/07/2021 2:15p Main Office Jose Daniel Bey M.D. Z 12.11 Encounter for screening for malignant neoplasm of colon R93.89 Abnormal findings on dx imag ing of oth body structures Assessments Date Code Description Provider 03/07/2021 Z12.11 Screening for malignant neoplasm of colon Jose Daniel Bey M.D. 03/07/2021 R93.89 Radiology result abnormal Jose Daniel Bey M.D. Plan of Treatment Future Appointment(s):* 05/06/2021 6:15 am - Venecia at Main Office * 05/20/2021 9:00 am - Jose Daniel Bey M.D. at Main Office 03/07/2021 - Jose Daniel Bey M.D.* Z12.11 Screening for malignant neoplasm of colon* Comments:* 70 yo wf who presents for a screening colonoscopy/egd for gastric polyps. Last scope was in 2014. No c/o abdominal pain, weight loss, change in bowel habits, or rectal bleeding. No family h/o colon cancer. No h/o chest pain, or sob. Plan:1.Schedule patient for a colonoscopy + egd.2.Informed consent given to the patient.3.Pt. advised to stop aspirin,plavix, and anticoagulants at least 3 to 7 days prior to the procedure. * R93.89 Radiology result abnormal* Comments:* As above. Functional Status Description No Information Available Mental Status Description No Information Available Referrals Description No Information Available
--- OUTSIDE RECORDS SUMMARY | 2021-05-20 07:54 | CCD | Continuity of Care Document ---
Author Author Alix PETTY MD Organization Unknown Address [address] [place] [address], [facility] e [address] [place] [address] Phone [phone] Care Team Providers Care Medication Coordinator Name Role Phone Hollie JordanM [phone] Problems Description No Information Available Social [...] Vitamin D 2000Unit Tablets Unknown Calcium 1200 [id number] Chew tabs dose unknown Unknown Flonase Allergy [...] Information Available Procedures Date Code Description Status 02/06/2021 07233 Therapeutic Procedure, Each 15 M inutes Completed 02/06/2021 73363 Manual Therapy Each 15 Minutes C ompleted 02/04/2021 84311 Office/Outpatient Established Lo w MDM 20-29 Min Completed 01/30/2021 71445 Therapeutic Procedure, Each 15 M inutes Completed 01/24/2021 48792 Manual Therapy Each 15 Minutes C ompleted 01/24/2021 30546 Therapeutic Procedure, Each 15 M inutes Completed 01/16/2021 27233 Therapeutic Procedure, Each 15 M inutes Completed 01/02/2021 36644 Therapeutic Procedure, Each 15 M inutes Completed 12/28/2020 86467 Re-Eval Of PT Establ ished Plan Of Care 20Mins Face To Face PT/Fam Completed 12/28/2020 11740 Therapeutic Procedure, Each 15 M inutes Completed 12/20/2020 74710 Office/Outpatient Established Mo d MDM 30-39 Min Completed 12/20/2020 09494 Therapeutic Procedure, Each 15 M inutes Completed 12/20/2020 90063 X-Ray Femur Minimum 2 Views Comp leted 12/11/2020 45285 Therapeutic Procedure, Each 15 M inutes Completed 11/28/2020 61575 Therapeutic Procedure, Each 15 M inutes Completed 11/26/2020 61340 Therapeutic Procedure, Each 15 M inutes Completed 11/22/2020 05027 Therapeutic Procedure, Each 15 M inutes Completed 11/19/2020 45796 Therapeutic Procedure, Each 15 M inutes Completed 11/15/2020 63868 Therapeutic Procedure, Each 15 M inutes Completed 11/12/2020 50347 Office/Outpatient Established Lo w MDM 20-29 Min Completed 11/12/2020 53651 Therapeutic Procedure, Each 15 M inutes Completed 11/08/2020 27775 Therapeutic Procedure, Each 15 M inutes Completed 11/05/2020 11745 Therapeutic Procedure, Each 15 M inutes Completed 10/25/2020 71948 Physical Therapy Eval - Low Comp lexity Completed 10/15/2020 59146 Office/Outpatient Established Mo d MDM 30-39 Min Completed 10/09/2020 40814 MRI Lower Extremity Any Joint Co mpleted 10/09/2020 13256 MRI Lower Extremity Any Joint Co mpleted 10/04/2020 91379 Office/Outpatient Established Mo d MDM 30-39 Min Completed 10/04/2020 18084 X-Ray Femur Minimum 2 Views Comp leted Medical Devices Description No Information Available Encounters Type Date Location Provider Dx Diagnosis Office Visit 02/04/2021 8:30a Lucian Petty MD [...] right knee Assessments Date Code Description Provider 02/06/2021 S83.241D Other tear of medial meniscus, current injury, right knee, subsequent encounter Dom Cerda P.T. 02/06/2021 M70.62 Trochanteric bursitis, left hip Dom Cerda P.T. 02/06/2021 M16.12 Unilateral primary osteoarthriti s, left hip Dom Cerda P.T. 02/04/2021 S83.241D Other tear of medial meniscus, current injury, right knee, subsequent encounter Bobby Petty MD 02/04/2021 M16.12 Unilateral primary osteoarthriti s, left hip Bobby Petty MD 01/30/2021 S83.241D Other tear of medial meniscus, current injury, right knee, subsequent encounter Danamarie Ortolano, FELLER SEAM OPERATOR 01/30/2021 M70.62 Trochanteric bursitis, left hip Danamarie Ortolano, FELLER SEAM OPERATOR 01/24/2021 S83.241D Other tear of medial meniscus, current injury, right knee, subsequent encounter Danamarie Ortolano, FELLER SEAM OPERATOR 01/24/2021 M70.62 Trochanteric bursitis, left hip Danamarie Ortolano, FELLER SEAM OPERATOR 01/16/2021 S83.241D Other tear of medial meniscus, [...] injury, right knee, subsequent encounter Danamarie Ortolano, FELLER SEAM OPERATOR 11/22/2020 S83.241D Other tear of medial meniscus, current injury, right knee, subsequent encounter Danamarie Ortolano, FELLER SEAM OPERATOR 11/19/2020 S83.241D Other tear of medial meniscus, current injury, right knee, subsequent encounter Danamarie Ortolano, FELLER SEAM OPERATOR 11/15/2020 S83.241D Other tear of medial meniscus, current injury, right knee, subsequent encounter Danamarie Ortolano, FELLER SEAM OPERATOR 11/12/2020 S83.241D Other tear of medial meniscus, current injury, right knee, subsequent encounter Dom Cerda P.T. 11/12/2020 S83.241D Other tear of medial meniscus, current injury, right knee, subsequent encounter Bobby Petty MD 11/08/2020 S83.241D Other tear of medial meniscus, current injury, right knee, subsequent encounter Danamarie Ortolano, FELLER SEAM OPERATOR 11/05/2020 S83.241D Other tear of medial meniscus, [...] knee Bobby Petty MD Plan of Treatment Future Appointment(s):* 03/05/2021 9:30 am - Dom Cerda P.TSundar at Physical Therapy * 03/18/2021 9:00 am - Bobby Petty MD at [facility] Functional Status Description No Information Available Mental Status Description No Information Available Referrals Refer to Dr Reason for Referral Status Appt Date Bobby Petty MD Allowed eval than needs auth to PT dept sw. Created [facility] [address] [phone] Bobby Petty MD PT - 6 VISITS & 24 SERVICE U NITS OK'D FOR R KNEE FROM 01/07- 03/08/21, AUTH# [id number]. SS Created [facility] [place] [id number] [phone] Bobby Petty MD PT - 4 VISITS AND 16 UNITS O K'D FOR R KNEE FROM 12/03-01/02/21, AUTH# [id number]. SS Created [facility] [place] [id number] [phone] Bobby Petty MD PT - 8 VISITS AND 32 UNITS O K'D FOR R KNEE FROM 10/29-11/28/20, AUTH #[id number]. SS Created [facility] [address] [phone] Bobby Petty MD PT ALLOWED EVAL THEN NEEDS AUTH TO PT DEPT. N T Created [address] [place] [address] [phone] Bobby Petty MD MRI APPROVED PER [employer] FOR MRI OF RIGHT KNEE ([id number]) TO MRI. DG Created [facility] [address] [phone]
--- OUTSIDE RECORDS SUMMARY | 2021-05-20 07:54 | CCD | Continuity of Care Document ---
Author Author Alix WOODY PA Organization [place] [address] Phone [phone] Care Team Providers Care Pyridine Operator Name Role Phone Hollie Jordan D.O. AUTM Skip Fleming M.D. AUTM [phone] Reno Ibarra M.D. AUTM [phone] Jose Daniel Bey M.D. AUTM [phone] Problems Active Problems Provider Date Irritable bowel [...] belt Allergies, Adverse Reactions, Alerts Active Allergies Reaction Severity Comments Date Erythromycin Nausea and Vomiting, Urticaria 06/10/2016 Sulfa Urticaria 06/10/2016 Penicillin Urticaria 06/10/2016 Macrobid Urticaria 06/10/2016 Tetracycline Urticaria 06/10/2016 Novocet Lotion Urticaria 06/10/2016 Konofed A JR Urticaria 06/10/2016 Prebenzaminu Urticaria 06/10/2016 Retin-A Urticaria 06/10/2016 Seldane Urticaria 06/10/2016 Tavist Urticaria 06/10/2016 Lidocaine backache for several days IVP Dyes Severe 06/10/2016 Gluten 06/10/2016 Medications Active Medications SIG Qnty Indications Ordering Provide r Date Mouthwash-Om Liquid lidocaine:maalox:benadryl in 1:1:1, 15 milliliters every 8 hours as needed for pain, gargle and spit 480ml R47.02 Hollie Jordan D.O. 01/22/2021 Famotidine 40mg Tablets take 1 tab by mouth daily as needed for heartburn. 90tabs Hollie Moyer D.O. 07/18/2019 Magnesium 300mg Capsules Hollie Jordan D.O. 05/18/2019 Topiramate 25mg Tablets Take 2 Tablets Nightly If Needed 360tabs Reno MezaOSundar Pantoprazole Sodium 40mg Tablets D R take 1 tablet daily 90tabs Reno MezaOSundar 03/02 Colace 100mg Capsules 1 by mouth every day 90caps K58.2 Reno MezaOSundar 12/14 Miralax 3350NF Packet 17g packet daily until successful bowel movement 36units K58.2 Reno BishopOSundar 12/14/2018 Cane Misc pleas e dispense 1 cane dx: m54.15 prognosis: fair duration: 99 M25.561 Unknown M23.8x1 Cranberry Extract 250mg Tablets Unknown Saline Nasal [place] 0.65% Solution 1 spray each nostril three times a day Unknown 0 Hair Skin Nails Capsules Unknown Melatonin 5mg [...] daiy Unknown 00 Calcium 1000 + D [id number] T ablets 1 tab by mouth daily Unknown Probiotic Capsules 1 caps by mouth at night with meal or after Unknown 000 Metamucil Smooth Texture Fiber Singles 28% Packet use at night with meal or after Unknown Alprazolam 0.25mg Tablets 1-2 tablets by mouth every 12 hours as needed for anxiety. istop: [id number] 120tabs Hollie Jordan D.O. History Medications Cephalexin 500mg Capsules 1 tab by mouth three times a day until gone 21caps Reno OliveraO. 02/16/2021 - 03/08/2021 Cephalexin 500mg Capsules take one capsule by mouth every 12 hours for 7 days 14caps Hollie Blake D.O. 10/14/2020 - 12/12/2020 Ciprofloxacin HCL 500mg Tablets one tablet every 12 hours 10tabs N39.0 Hollie Jordan D.O. 10/10 - 12/12/2020 Diflucan 200mg Tablets take one tablet after finishing antibiotics and two days later if symptoms persist 3tabs N39.0 Reno MezaO. 10/10/2020 - 12/12/2020 Walker Auto Glides/5 Adjustment Holes/- 08/03" 1-08/03" Misc duration: 99 prognosis: good. 1units M25.561 Reno TabaresO. 09/24/2020 - 12/21/2020 M23.8x1 Medications Administered in Office Medication SIG Qnty Indications Ordering Provider Date Immunization Administration Single Or Co mbination Injection Nurse 05/18/2019 Immunizations CPT Code Status Date Vaccine Lot # U-Pneum Given 04/26/2020 Pneumococcal,Unspecified U-Flu Given 05/18/2019 Influenza,Unspecified [id number] Given 05/18/2019 Pneumococcal Con jugate Vaccine 13 Valent For Intramuscular Use [id number] U-Flu Given 04/23/2018 Influenza,Unspecified Vital Signs Date Vital Result Comment 03/08/2021 10:16am BP Systolic 126 mmHg BP Diastolic 82 mmHg Height 60.1 inches 5'0.10" Weight 193.25 lb BMI (Body Mass Index) 37.6 kg/m2 Heart Rate 95 /min Respiratory Rate 18 /min Body Temperature 98.1 F O2 % BldC Oximetry 96 % [place] Body Weight 100 lb 02/13/2021 11:09am BP Systolic 120 mmHg BP Diastolic 70 mmHg Height 60.1 inches 5'0.10" Weight 199.00 lb BMI (Body Mass Index) 38.7 kg/m2 Heart Rate 69 /min Respiratory Rate 20 /min Body Temperature 97.4 F O2 % BldC Oximetry 99 % [place] Body Weight 100 lb Results Test Acquired Date Facility Test Result H/L Range Note Order 03/08/2021 In House Orders EKG see result in chart Laboratory test finding 02/13/2021 [facility] Outpatient T esting (Registration) [address] [place] [address] [phone] Urine Culture FULL REPORT IN L <SEE NOTE> Normal 1 Genital Culture FULL REPORT IN L <SEE NOTE> Normal 2 Inhouse Ua 02/13/2021 Inhouse Inhouse Leukocytes Trace Inhouse Nitrite Negative Inhouse Urobilinogen trace Inhouse Protein Positive Inhouse PH 7 Inhouse Hemoglobin negative Inhouse Specific [place] 1.005 Inhouse Ketones negative Inhouse Bilirubin negative Inhouse Glucose negative Comprehensive Metabolic Profil 12/07/2020 [facility] Outpa tient Testing (Registration) [address] [place] [phone] Glucose, Fasting 107 mg/dL High 70-100 Blood [...] Ratio 1.1 Low 1.2-2.2 Lipid Panel 12/07/2020 [facility] Outpatient Testi ng (Registration) [address] [place] [address] [phone] Triglycerides Level 195 mg/dL High <150 Cholesterol Level 188 mg/dL Normal <200 HDL Cholesterol 43 mg/dL Normal >40 LDL Cholesterol 106 mg/dL High <100 Non-HDL-C 145 mg/dL Normal Cholesterol Risk Ratio 4.372 Normal <5 CBC With Differential 12/07/2020 [facility] Outpatient Negrita penny (Registration) [address] [place] [address] [phone] White Blood Count 4.0 10 Normal 4.0-10.0 [...] 36.0-66.0 Lymph % 50.0 % High 24.0-44.0 Bay % 8.3 % High 2.0-8.0 Eos % 2.8 % Normal 0.0-3.0 Baso % 0.3 % Normal 0.0-1.0 Immature Granulocyte % 0.3 % Normal 0-3.0 Nucleated Red Blood Cell % 0.0 % Normal 0-0 Neutrophils # 1.5 10 Normal 1.5-8.5 Lymph # 2.0 10 Normal 1.5-5.0 Bay # 0.3 10 Normal 0.0-0.8 Eos # 0.1 10 Normal 0.0-0.5 Baso # 0.0 10 Normal 0.0-0.2 Inhouse Ua 10/10/2020 Inhouse Inhouse Leukocytes ++ Inhouse Nitrite + Inhouse Urobilinogen 1 Inhouse Protein normal Inhouse PH 6 Inhouse Hemoglobin positive Inhouse Specific [place] 1.020 Inhouse Ketones neg Inhouse Bilirubin neg Inhouse Glucose neg Laboratory test finding 10/10/[facility] [address] [address] [phone] Genital Culture FULL REPORT IN L <SEE NOTE> Normal 4 Urine Culture FULL REPORT IN L <SEE NOTE> Normal 5 CBC With Differential 09/17/[address] [address] [phone] White Blood Count 4.4 10 Normal 4.0-10.0 [...] 36.0-66.0 Lymph % 48.0 % High 24.0-44.0 Bay % 7.7 % Normal 2.0-8.0 Eos % 1.6 % Normal 0.0-3.0 Baso % 0.5 % Normal 0.0-1.0 Immature Granulocyte % 0.2 % Normal 0-3.0 Nucleated Red Blood Cell % 0.0 % Normal 0-0 Neutrophils # 1.9 10 Normal 1.5-8.5 Lymph # 2.1 10 Normal 1.5-5.0 Bay # 0.3 10 Normal 0.0-0.8 Eos # 0.1 10 Normal 0.0-0.5 Baso # 0.0 10 Normal 0.0-0.2 Comprehensive Metabolic Profil 09/17/[address] [address] [phone] Glucose, Fasting 101 mg/dL High 70-100 Blood [...] Ratio 1.1 Low 1.2-2.2 Lipid Panel 09/17/[address] [address] [phone] Triglycerides Level 107 mg/dL Normal <150 Cholesterol Level 189 mg/dL Normal <200 HDL Cholesterol 53 mg/dL Normal >40 LDL Cholesterol 115 mg/dL High <100 Non-HDL-C 136 mg/dL Normal Cholesterol Risk Ratio 3.566 Normal <5 FT4&TSH Panel 09/17/[address] [address] [phone] Thyroid Stimulating Hormone 1.250 uIU/ML Normal 0. [...] Little GFR Left ESRD GFR <15 on LAND APPRAISER 4 FULL REPORT IN LAB NOTES (eC [...] Little GFR Left ESRD GFR <15 on LAND APPRAISER Procedures Date Code Description Status 03/08/2021 03348 Office/Outpatient Established Lo w MDM 20-29 Min Completed 03/08/2021 12839 Electrocardiogram Complete Compl eted 02/13/2021 47560 Office/Outpatient Established Lo w MDM 20-29 Min Completed 01/22/2021 74927 Office/Outpatient Established Mo d MDM 30-39 Min Completed 10/10/2020 31996 Office/Outpatient Established Mo d MDM 30-39 Min Completed 09/24/2020 04275 Office/Outpatient Established Lo w MDM 20-29 Min Completed 09/13/2020 75432 Office/Outpatient Established Mo d MDM 30-39 Min Completed 08/06/2020 [id number] Mammogram Completed Medical Devices Description No Information Available Encounters Type Date Location Provider Dx Diagnosis Office Visit 03/08/2021 10:00a Family [facility] KELLY Wilson Z01.818 Encounter for other preproce dural examination I45.81 Long QT syndrome 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, including tongue K21.9 Gastro-esophageal reflux dis ease without esophagitis K58.1 Irritable bowel syndrome wit h constipation F41.1 Generalized anxiety disorder G43.009 Migraine w/o aura, not intra ctable, w/o status migrainosus Z79.899 Other nursing home (current) dr christina irvin Office Visit 02/13/2021 11:20a [facility] KELLY Coffey N39.0 Urinary tract infection, sit e not specified Office Visit 01/22/2021 1:15p [facility] KELLY Fajardo R47.02 Dysphasia 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, including tongue Office Visit 12/12/2020 10:00a [facility] KELLY Fajardo Z00.00 Encntr for general adult med ical exam w/o abnormal findings M25.561 Pain in right knee M25.552 Pain in left hip K21.9 Gastro-esophageal reflux dis ease without esophagitis K58.1 Irritable bowel syndrome wit h constipation E78.00 Pure hypercholesterolemia, u nspecified F41.1 Generalized anxiety disorder G43.009 Migraine w/o aura, not intra ctable, w/o status migrainosus Z79.899 Other conveyor monitor (current) dr christina irvin 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.9 Malignant neoplasm of tongue , [...] status migrainosus KELLY Fajardo 03/08/2021 Z79.899 Other conveyor monitor (current) drug t herapy KELLY Fajardo 02/13/2021 [...] status migrainosus KELLY Fajardo 12/12/2020 Z79.899 Other conveyor monitor (current) drug t herapy KELLY Fajardo 12/12/2020 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, incl uding tongue KELLY Fajardo 12/12/2020 Z13.820 Encounter for screening for oste oporosis KELLY Fajardo 10/10/2020 N39.0 Urinary tract infection, site no t specified KELLY Fajardo 09/24/2020 M25.561 Pain in right knee KELLY Lindsey 09/13/2020 K21.9 Gastro-esophageal reflux disease without esophagitis Hollie Jordan D.O. 09/13/2020 K58.1 Irritable bowel syndrome with co [...] D.O. 09/13/2020 Z91.041 Radiographic dye allergy status Hollie Jordan D.O. 09/13/2020 Z79.899 Other conveyor monitor (current) drug t herapy Hollie Jordan D.O. 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 Plan of Treatment Future Appointment(s):* 04/17/2021 9:40 am - KELLY Fajardo at [facility] Functional Status Description No Information Available Mental Status Description No Information Available Referrals Refer to Dr Reason for Referral Status Appt Date Jose Daniel Bey M.D. Recent ugi series shows mult iple gastric polyps with largest being one cm. She has thickened duodenal folds as well. UGI series done due to dysphagia. Please consider endoscopy to evaluate further . Sent 03/07/2021 DR. Bey's Office [address] [place] [address] [phone] Reno Ibarra M.D. Lateral popliteal cyst 2.8 x 1.2 x 1.8 cm. please consider draining Sent [facility] [address] [place] [phone]
--- OUTSIDE RECORDS SUMMARY | 2021-05-20 07:54 | CCD ---
Continuity of Care Document (CCD) Created on: 03/08/2021 Alix Florian External Reference #: [id number] : [id number] Sex: Female Author Author Alix WOODY PA Organization [place] [address] Phone [phone] Care Team Providers Care Physician Scribe Name Role Phone Hollie Jordan D.O. AUTM [phone] Skip Fleming M.D. AUTM [phone] Reno Ibarra M.D. AUTM Jose Daniel Bey M.D. AUTM [phone] Problems Active Problems Provider Date Irritable bowel [...] 2 Tablets Nightly If Needed 360tabs Reno eMzaOSundar Pantoprazole Sodium 40mg Tablets D R take [...] Cranberry Extract 250mg Tablets Unknown Saline Nasal [place] 0.65% Solution 1 spray each nostril three [...] daiy Unknown 00 Calcium 1000 + D [id number] T ablets 1 tab by mouth daily Unknown Probiotic Capsules 1 caps by mouth at night with meal or after Unknown 000 Metamucil Smooth Texture Fiber Singles 28% Packet use at night with meal or after Unknown Alprazolam 0.25mg Tablets 1-2 tablets by mouth every 12 hours as needed for anxiety. istop: [id number] 120tabs Hollie Jordan D.O. History Medications Cephalexin 500mg Capsules 1 tab by mouth three times a day until gone 21caps Reno OliveraO. 02/16/2021 - 03/08/2021 Cephalexin 500mg Capsules take one capsule by mouth every 12 hours for 7 days 14caps Hollei Blake D.O. 10/14/2020 - 12/12/2020 Ciprofloxacin HCL [...] Given 04/26/2020 Pneumococcal,Unspecified U-Flu Given 05/18/2019 Influenza,Unspecified 18622 Given 05/18/2019 Pneumococcal Con jugate Vaccine 13 Valent For Intramuscular Use [id number] U-Flu Given 04/23/2018 Influenza,Unspecified Vital Signs Date Vital Result Comment 03/08/2021 10:16am BP Systolic 126 mmHg BP Diastolic 82 mmHg Height 60.1 inches 5'0.10" Weight 193.25 lb BMI (Body Mass Index) 37.6 kg/m2 Heart Rate 95 /min Respiratory Rate 18 /min Body Temperature 98.1 F O2 % BldC Oximetry 96 % [place] Body Weight 100 lb 02/13/2021 11:09am BP Systolic 120 mmHg BP Diastolic 70 mmHg Height 60.1 inches 5'0.10" Weight 199.00 lb BMI (Body Mass Index) 38.7 kg/m2 Heart Rate 69 /min Respiratory Rate 20 /min Body Temperature 97.4 F O2 % BldC Oximetry 99 % [place] Body Weight 100 lb Results Test Acquired Date Facility Test Result H/L Range Note Order 03/08/2021 In House Orders EKG see result in chart Laboratory test finding 02/13/2021 [facility] Outpatient T esting (Registration) [address] [place] [address] [id number] [phone] Urine Culture FULL REPORT IN L <SEE NOTE> Normal 1 Genital Culture FULL REPORT IN L <SEE NOTE> Normal 2 Inhouse Ua 02/13/2021 Inhouse Inhouse Leukocytes Trace Inhouse Nitrite Negative Inhouse Urobilinogen trace Inhouse Protein Positive Inhouse PH 7 Inhouse Hemoglobin negative Inhouse Specific [place] 1.005 Inhouse Ketones negative Inhouse Bilirubin negative Inhouse Glucose negative Comprehensive Metabolic Profil 12/07/2020 [facility] Outpa tient Testing (Registration) [address] [place] [address] [phone] Glucose, Fasting 107 mg/dL High 70-100 Blood [...] Ratio 1.1 Low 1.2-2.2 Lipid Panel 12/07/2020 [facility] Outpatient Testi ng (Registration) [address] [place] [address] [phone] Triglycerides Level 195 mg/dL High <150 Cholesterol Level 188 mg/dL Normal <200 HDL Cholesterol 43 mg/dL Normal >40 LDL Cholesterol 106 mg/dL High <100 Non-HDL-C 145 mg/dL Normal Cholesterol Risk Ratio 4.372 Normal <5 CBC With Differential 12/07/2020 [facility] Outpatient Negrita penny (Registration) [address] [place] [address] [id number] [phone] White Blood Count 4.0 10 Normal 4.0-10.0 [...] 36.0-66.0 Lymph % 50.0 % High 24.0-44.0 [place] % 8.3 % High 2.0-8.0 Eos % 2.8 % Normal 0.0-3.0 Baso % 0.3 % Normal 0.0-1.0 Immature Granulocyte % 0.3 % Normal 0-3.0 Nucleated Red Blood Cell % 0.0 % Normal 0-0 Neutrophils # 1.5 10 Normal 1.5-8.5 Lymph # 2.0 10 Normal 1.5-5.0 [place]borne # 0.3 10 Normal 0.0-0.8 Eos # 0.1 10 Normal 0.0-0.5 Baso # 0.0 10 Normal 0.0-0.2 Inhouse Ua 10/10/2020 Inhouse Inhouse Leukocytes ++ Inhouse Nitrite + Inhouse Urobilinogen 1 Inhouse Protein normal Inhouse PH 6 Inhouse Hemoglobin positive Inhouse Specific [place] 1.020 Inhouse Ketones neg Inhouse Bilirubin neg Inhouse Glucose neg Laboratory test finding 10/10/[address] [facility] [address] [address] [phone] Genital Culture FULL REPORT IN L <SEE NOTE> Normal 4 Urine Culture FULL REPORT IN L <SEE NOTE> Normal 5 CBC With Differential 09/17/[address] [address] [phone] White Blood Count 4.4 10 Normal 4.0-10.0 [...] 36.0-66.0 Lymph % 48.0 % High 24.0-44.0 [place] % 7.7 % Normal 2.0-8.0 Eos % 1.6 % Normal 0.0-3.0 Baso % 0.5 % Normal 0.0-1.0 Immature Granulocyte % 0.2 % Normal 0-3.0 Nucleated Red Blood Cell % 0.0 % Normal 0-0 Neutrophils # 1.9 10 Normal 1.5-8.5 Lymph # 2.1 10 Normal 1.5-5.0 [place]borne # 0.3 10 Normal 0.0-0.8 Eos # 0.1 10 Normal 0.0-0.5 Baso # 0.0 10 Normal 0.0-0.2 Comprehensive Metabolic Profil 09/17/[address] [address] [phone] Glucose, Fasting 101 mg/dL High 70-100 Blood [...] Ratio 1.1 Low 1.2-2.2 Lipid Panel 09/17/[address] [address] [phone] Triglycerides Level 107 mg/dL Normal <150 Cholesterol Level 189 mg/dL Normal <200 HDL Cholesterol 53 mg/dL Normal >40 LDL Cholesterol 115 mg/dL High <100 Non-HDL-C 136 mg/dL Normal Cholesterol Risk Ratio 3.566 Normal <5 FT4&TSH Panel 09/17/[address] [address] [phone] Thyroid Stimulating Hormone 1.250 uIU/ML Normal 0. [...] Little GFR Left ESRD GFR <15 on [facility] 4 FULL REPORT IN LAB NOTES (eC [...] Little GFR Left ESRD GFR <15 on [facility] Procedures Date Code Description Status 03/08/2021 77793 Office/Outpatient Established Lo w MDM 20-29 Min Completed 03/08/2021 72236 Electrocardiogram Complete Compl eted 02/13/2021 79698 Office/Outpatient Established Lo w MDM 20-29 Min Completed 01/22/2021 36797 Office/Outpatient Established Mo d MDM 30-39 Min Completed 10/10/2020 17477 Office/Outpatient Established Mo d MDM 30-39 Min Completed 09/24/2020 74129 Office/Outpatient Established Lo w MDM 20-29 Min Completed 09/13/2020 29283 Office/Outpatient Established Mo d MDM 30-39 Min Completed 08/06/2020 [id number] Mammogram Completed Medical Devices Description No Information Available Encounters Type Date Location Provider Dx Diagnosis Office Visit 03/08/2021 10:00a Family [facility] KELLY Wilson Z01.818 Encounter for other preproce dural examination I45.81 Long QT syndrome 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, including tongue K21.9 Gastro-esophageal reflux dis ease without esophagitis K58.1 Irritable bowel syndrome wit h constipation F41.1 Generalized anxiety disorder G43.009 Migraine w/o aura, not intra ctable, w/o status migrainosus Z79.899 Other [facility] (current) dr christina irvin Office Visit 02/13/2021 11:20a [facility] KELLY Coffey N39.0 Urinary tract infection, sit e not specified Office Visit 01/22/2021 1:15p [facility] KELLY Fajardo R47.02 Dysphasia 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, including tongue Office Visit 12/12/2020 10:00a [facility] KELLY Fajardo Z00.00 Encntr for general adult med ical exam w/o abnormal findings M25.561 Pain in right knee M25.552 Pain in left hip K21.9 Gastro-esophageal reflux dis ease without esophagitis K58.1 Irritable bowel syndrome wit h constipation E78.00 Pure hypercholesterolemia, u nspecified F41.1 Generalized anxiety disorder G43.009 Migraine w/o aura, not intra ctable, w/o status migrainosus Z79.899 Other net sorter (current) dr christina irvin 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 K21.9 Gastro-esophageal reflux dis [...] Radiographic dye allergy sta tus Z79.899 Other net sorter (current) dr ug therapy C02.9 Malignant neoplasm [...] status migrainosus KELLY Fajardo 03/08/2021 Z79.899 Other net sorter (current) drug t herapy KELLY Fajardo 02/13/2021 [...] status migrainosus KELLY Fajardo 12/12/2020 Z79.899 Other net sorter (current) drug t herapy KELLY Fajardo 12/12/2020 [...] status Hollie Jordan D.O. 09/13/2020 Z79.899 Other net sorter (current) drug t herapy Hollie Jordan D.O. 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 Plan of Treatment Future Appointment(s):* 04/17/2021 9:40 am - KELLY Fajardo at [facility] Functional Status Description No Information Available [...] further . Sent 03/07/2021 DR[facility] [address] [place] [address] [phone] Reno Ibarra M.D. Lateral popliteal cyst 2.8 x 1.2 x 1.8 cm. please consider draining Sent [facility] [address] [place] [address] [phone]
--- OUTSIDE RECORDS SUMMARY | 2021-05-20 07:55 | CCD ---
Author Author [facility] Organization [facility] Address Unknown Phone Unavailable Care Team Providers Care Front Office Attendant Name Role Phone Fish, B Bobby BULL Unavailable Unavailable Fish, B Bobby BULL Unavailable Unavailable Fish, B Bobby BULL Unavailable Unavailable Fish, B Bobby BULL Unavailable Unavailable Fish, B Bobby BULL Unavailable Unavailable Fish, B Bobby BULL Unavailable Unavailable Fish, B Bobby BULL Unavailable Unavailable Fish, B Bobby BULL Unavailable Unavailable Fish, B Bobby UBLL Unavailable Unavailable Fish, B Bobby BULL Unavailable Unavailable Fish, B Bobby BULL Unavailable Unavailable Fish, B Bobby BULL Unavailable Unavailable Fish, B Bobby BULL Unavailable Unavailable Fish, B Bobby BULL Unavailable Unavailable Fish, B Bobby BULL Unavailable Unavailable Fish, B Bobby BULL Unavailable Unavailable Fish, B Bobby BULL Unavailable Unavailable Fish, B Bobby BULL Unavailable Unavailable Fish, B Bobby BULL Unavailable Unavailable Fish, B Bboby BULL Unavailable Unavailable Fish, B Bobby BULL Unavailable Unavailable Fish, B Bobby BULL Unavailable Unavailable Fish, B Bobby BULL Unavailable Unavailable Fish, B Bobby BULL Unavailable Unavailable Fish, B Bobby BULL Unavailable Unavailable Fish, B Bobby BULL Unavailable Unavailable Fish, B Bobby BULL Unavailable Unavailable Fish, B Bobby BULL Unavailable Unavailable Fish, B Bobby BULL Unavailable Unavailable Fish, B Bobby BULL Unavailable Unavailable Fish, B Bobby BULL Unavailable Unavailable Fish, B Bobby BULL Unavailable Unavailable Fish, B Bobby BULL Unavailable Unavailable Fish, B Bobby BULL Unavailable Unavailable Fish, B Bobby BULL Unavailable Unavailable Fish, B Bobby BULL Unavailable Unavailable Fish, B Bobby BULL Unavailable Unavailable Fish, B Bobby BULL Unavailable Unavailable Fish, B Bobby BULL Unavailable Unavailable Fish, B Bobby BULL Unavailable Unavailable Fish, B Bobby BULL Unavailable Unavailable Fish, B Bobby BULL Unavailable Unavailable Fish, B Bobby BULL Unavailable Unavailable Fish, B Bobby BULL Unavailable Unavailable Fish, B Bobby BULL Unavailable Unavailable Fish, B Bobby BULL Unavailable Unavailable Fish, B Bobby BULL Unavailable Unavailable Fish, B Bobby BULL Unavailable Unavailable Fish, B Bobby BULL Unavailable Unavailable Fish, B Bobby BULL Unavailable Unavailable Fish, B Bobby BULL Unavailable Unavailable Fish, B Bobby BULL Unavailable Unavailable Fish, B Bobby BULL Unavailable Unavailable Fish, B Bobby BULL Unavailable Unavailable Fish, B Bobby BULL Unavailable Unavailable Fish, B Bobby BULL Unavailable Unavailable Simba Bey MD Unavailable Unavailable Simba Bey MD Unavailable Unavailable Simba Bey MD Unavailable Unavailable Simba Bey MD Unavailable Unavailable Simba Bey MD Unavailable Unavailable Simba Bey MD Unavailable Unavailable Simba Bey MD Unavailable Unavailable Simba Bey MD Unavailable Unavailable Simba Bey MD Unavailable Unavailable Simba Bey MD Unavailable Unavailable Simba Bey MD Unavailable Unavailable Simba Bey MD Unavailable Unavailable Simba Bey MD Unavailable Unavailable Simba Bey MD Unavailable Unavailable Simba Bey MD Unavailable Unavailable Simba Bey MD Unavailable Unavailable Simba Bey MD Unavailable Unavailable Simba Bey MD Unavailable Unavailable Simba Bey MD Unavailable Unavailable Simba Bey MD Unavailable Unavailable Simba Bey MD Unavailable Unavailable Simba Bey MD Unavailable Unavailable Simba Bey MD Unavailable Unavailable Simba Bey MD Unavailable Unavailable Simba Bey MD Unavailable Unavailable Simba Bey MD Unavailable Unavailable Simba Bey MD Unavailable Unavailable Simba Bey MD Unavailable Unavailable Simba Bey MD Unavailable Unavailable Simba Bey MD Unavailable Unavailable Simba Bey MD Unavailable Unavailable Simba Bey MD Unavailable Unavailable Simba Bey MD Unavailable Unavailable Simba Bey MD Unavailable Unavailable Sotero, S Jose Daniel MD Unavailable Unavailable Sotero, S Jose Daniel MD Unavailable Unavailable Sotero, S Jose Daniel MD Unavailable Unavailable Sotero, S Jose Daniel MD Unavailable Unavailable Sotero, S Jose Daniel MD Unavailable Unavailable Sotero, S Jose Daniel MD Unavailable Unavailable Sotero, S Jose Daniel MD Unavailable Unavailable Sotero, S Jose Daniel MD Unavailable Unavailable Sotero, S Jose Daniel MD Unavailable Unavailable Sotero, S Jose Daniel MD Unavailable Unavailable Sotero, S Jose Daniel MD Unavailable Unavailable Sotero, S Jose Daniel MD Unavailable Unavailable Sotero, S Jose Daniel MD Unavailable Unavailable Sotero, S Jose Daniel MD Unavailable Unavailable Sotero, S Jose Daniel MD Unavailable Unavailable Sotero, S Jose Daniel MD Unavailable Unavailable Sukh, Bobby PA Unavailable Unavailable Sukh, Bobby PA Unavailable Unavailable Sukh, Bobby PA Unavailable Unavailable Sukh, Bobby PA Unavailable Unavailable Sukh, Bobby PA Unavailable Unavailable Sukh, Bobby PA Unavailable Unavailable Sukh, Bobby PA Unavailable Unavailable Sukh, Bobby PA Unavailable Unavailable Sukh, Bobby PA Unavailable Unavailable Sukh, Bobby PA Unavailable Unavailable Sukh, Bobby PA Unavailable Unavailable Sukh, Bobby PA Unavailable Unavailable Sukh, Bobby PA Unavailable Unavailable Sukh, Bobby PA Unavailable Unavailable Sukh, Bobby PA Unavailable Unavailable Sukh, Bobby PA Unavailable Unavailable Sukh, Bobby PA Unavailable Unavailable Sukh, Bobby PA Unavailable Unavailable Sukh, Bobby PA Unavailable Unavailable Sukh, Bobby PA Unavailable Unavailable Sukh, Bobby PA Unavailable Unavailable Sukh, Bobby PA Unavailable Unavailable Sukh, Bobby PA Unavailable Unavailable Sukh, Bobby PA Unavailable Unavailable Sukh, Bobby PA Unavailable Unavailable Sukh, Bobby PA Unavailable Unavailable Sukh, Bobby PA Unavailable Unavailable Sukh, Bobby PA Unavailable Unavailable Sukh, Bobby PA Unavailable Unavailable Sukh, Bobby PA Unavailable Unavailable Sukh, Bobby PA Unavailable Unavailable Sukh, Bobby PA Unavailable Unavailable Sukh, Bobby PA Unavailable Unavailable Sukh, Bobby PA Unavailable Unavailable Sukh, Bobby PA Unavailable Unavailable Sukh, Bobby PA Unavailable Unavailable Sukh, Bobby PA Unavailable Unavailable Sukh, Bobby PA Unavailable Unavailable Sukh, Bobby PA Unavailable Unavailable Sukh, Bobby PA Unavailable Unavailable Sukh, Bobby PA Unavailable Unavailable Sukh, Bobby PA Unavailable Unavailable Sukh, Bobby PA Unavailable Unavailable Sukh, Bobby PA Unavailable Unavailable Sukh, Bobby PA Unavailable Unavailable Sukh, Bobby PA Unavailable Unavailable Sukh, Bobby PA Unavailable Unavailable Sukh, Bobby PA Unavailable Unavailable Sukh, Bobby PA Unavailable Unavailable Sukh, Bobby PA Unavailable Unavailable Sukh, Bobby PA Unavailable Unavailable Sukh, Bobby PA Unavailable Unavailable Sukh, Bobby PA Unavailable Unavailable Sukh, Bobby PA Unavailable Unavailable DASIA-ANA LAURA, FRANCA DO Unavailable Unavailable DASIA-ANA LAURA, FRANCA DO Unavailable Unavailable DASIA-ANA LAURA, FRANCA DO Unavailable Unavailable DASIA-ANA LAURA, FRANCA DO Unavailable Unavailable DASIA-ANA LAURA, FRANCA DO Unavailable Unavailable DASIA-ANA LAURA, FRANCA DO Unavailable Unavailable DASIA-ANA LAURA, FRANCA DO Unavailable Unavailable DASIA-ANA LAURA, FRANCA DO Unavailable Unavailable DASIA-ANA LAURA, FRANCA DO Unavailable Unavailable DASIA-ANA LAURA, FRANCA DO Unavailable Unavailable DASIA-ANA LAURA, FRANCA DO Unavailable Unavailable DASIA-ANA LAURA, FRANCA DO Unavailable Unavailable DASIA-ANA LAURA, FRANCA DO Unavailable Unavailable DASIA-ANA LAURA, FRANCA DO Unavailable Unavailable DASIA-ANA LAURA, FRANCA DO Unavailable Unavailable DASIA-ANA LAURA, FRANCA DO Unavailable Unavailable DASIA-ANA LAURA, FRANCA DO Unavailable Unavailable DASIA-ANA LAURA, FRANCA DO Unavailable Unavailable DASIA-ANA LAURA, FRANCA DO Unavailable Unavailable DASIA-ANA LAURA, FRANCA DO Unavailable Unavailable DASIA-ANA LAURA, FRANCA DO Unavailable Unavailable DASIA-ANA LAURA, FRANCA DO Unavailable Unavailable DASIA-ANA LAURA, FRANCA DO Unavailable Unavailable DASIA-ANA LAURA, FRANCA DO Unavailable Unavailable DASIA-ANA LAURA, FRANCA DO Unavailable Unavailable DASIA-ANA LAURA, FRANCA DO Unavailable Unavailable DASIA-ANA LAURA, FRANCA DO Unavailable Unavailable DASIA-ANA LAURA, FRANCA DO Unavailable Unavailable DASIA-ANA LAURA, FRANCA DO Unavailable Unavailable DASIA-ANA LAURA, FRANCA DO Unavailable Unavailable DASIA-ANA LAURA, FRANCA DO Unavailable Unavailable DASIA-ANA LAURA, FRANCA DO Unavailable Unavailable DASIA-ANA LAURA, FRANCA DO Unavailable Unavailable DASIA-ANA LAURA, FRANCA DO Unavailable Unavailable DASIA-ANA LAURA, FRANCA DO Unavailable Unavailable DASIA-ANA LAURA, FRANCA DO Unavailable Unavailable DASIA-ANA LAURA, FRANCA DO Unavailable Unavailable DASIA-ANA LAURA, FRANCA DO Unavailable Unavailable DASIA-ANA LAURA, FRANCA DO Unavailable Unavailable DASIA-ANA LAURA, FRANCA DO Unavailable Unavailable DASIA-ANA LAURA, FRANCA DO Unavailable Unavailable DASIA-ANA LAURA, FRANCA DO Unavailable Unavailable DASIA-ANA LAURA, FRANCA DO Unavailable Unavailable DASIA-ANA LAURA, FRANCA DO Unavailable Unavailable DASIA-ANA LAURA, FRANCA DO Unavailable Unavailable DASIA-ANA LAURA, FRANCA DO Unavailable Unavailable DASIA-ANA LAURA, FRANCA DO Unavailable Unavailable DASIA-ANA LAURA, FRANCA DO Unavailable Unavailable DASIA-ANA LAURA, FRANCA DO Unavailable Unavailable DASIA-ANA LAURA, FRANCA DO Unavailable Unavailable DASIA-ANA LAURA, FRANCA DO Unavailable Unavailable DASIA-ANA LAURA, FRANCA DO Unavailable Unavailable DASIA-ANA LAURA, FRANCA DO Unavailable Unavailable DASIA-ANA LAURA, FRANCA DO Unavailable Unavailable DASIA-ANA LAURA, FRANCA DO Unavailable Unavailable DASIA-ANA LAURA, FRANCA DO Unavailable Unavailable DASIA-ANA LAURA, FRANCA DO Unavailable Unavailable DASIA-ANA LAURA, FRANCA DO Unavailable Unavailable DASIA-ANA LAURA, FRANCA DO Unavailable Unavailable DASIA-ANA LAURA, FRANCA DO Unavailable Unavailable DASIA-ANA LAURA, FRANCA DO Unavailable Unavailable DASIA-ANA LAURA, FRANCA DO Unavailable Unavailable DASIA-ANA LAURA, FRANCA DO Unavailable Unavailable DASIA-ANA LAURA, FRANCA DO Unavailable Unavailable DASIA-ANA LAURA, FRANCA DO Unavailable Unavailable DASIA-ANA LAURA, FRANCA DO Unavailable Unavailable DASIA-ANA LAURA, FRANCA DO Unavailable Unavailable DASIA-ANA LAURA, FRANCA DO Unavailable Unavailable DASIA-ANA LAURA, FRANCA DO Unavailable Unavailable DASIA-ANA LAURA, FRANCA DO Unavailable Unavailable DASIA-ANA LAURA, FRANCA DO Unavailable Unavailable DASIA-ANA LAURA, FRANCA DO Unavailable Unavailable DASIA-ANA LAURA, FRANCA DO Unavailable Unavailable DASIA-ANA LAURA, FRANCA DO Unavailable Unavailable DASIA-ANA LAURA, FRANCA DO Unavailable Unavailable DASIA-ANA LAURA, FRANCA DO Unavailable Unavailable DASIA-ANA LAURA, FRANCA DO Unavailable Unavailable DASIA-ANA LAURA, FRANCA DO Unavailable Unavailable DASIA-ANA LAURA, FRANCA DO Unavailable Unavailable DASIA-ANA LAURA, FRANCA DO Unavailable Unavailable DASIA-ANA LAURA, FRANCA DO Unavailable Unavailable DASIA-ANA LAURA, FRANCA DO Unavailable Unavailable DASIA-ANA LAURA, FRANCA DO Unavailable Unavailable DASIA-ANA LAURA, FRANCA DO Unavailable Unavailable Whiteface, Daphney DRAWING TENDER Unavailable Unavailable Whiteface, Daphney DRAWING TENDER Unavailable Unavailable Whiteface, Daphney DRAWING TENDER Unavailable Unavailable Whiteface, Daphney DRAWING TENDER Unavailable Unavailable Whiteface, Daphney DRAWING TENDER Unavailable Unavailable Whiteface, Daphney DRAWING TENDER Unavailable Unavailable Whiteface, Daphney DRAWING TENDER Unavailable Unavailable Whiteface, Daphney DRAWING TENDER Unavailable Unavailable Whiteface, Daphney DRAWING TENDER Unavailable Unavailable Whiteface, Daphney DRAWING TENDER Unavailable Unavailable Whiteface, Daphney DRAWING TENDER Unavailable Unavailable Whiteface, Daphney DRAWING TENDER Unavailable Unavailable Whiteface, Daphney DRAWING TENDER Unavailable Unavailable Whiteface, Daphney DRAWING TENDER Unavailable Unavailable Whiteface, Daphney DRAWING TENDER Unavailable Unavailable Whiteface, Daphney DRAWING TENDER Unavailable Unavailable Whiteface, Daphney DRAWING TENDER Unavailable Unavailable Whiteface, Dapnhey DRAWING TENDER Unavailable Unavailable Whiteface, Daphney DRAWING TENDER Unavailable Unavailable Whiteface, Daphney DRAWING TENDER Unavailable Unavailable Whiteface, Daphney DRAWING TENDER Unavailable Unavailable Whiteface, Daphney DRAWING TENDER Unavailable Unavailable Whiteface, Daphney DRAWING TENDER Unavailable Unavailable Whiteface, Daphney DRAWING TENDER Unavailable Unavailable Whiteface, Daphney DRAWING TENDER Unavailable Unavailable Whiteface, Daphney DRAWING TENDER Unavailable Unavailable Whiteface, Daphney DRAWING TENDER Unavailable Unavailable Whiteface, Daphney DRAWING TENDER Unavailable Unavailable Whiteface, Daphney DRAWING TENDER Unavailable Unavailable Whiteface, Daphney DRAWING TENDER Unavailable Unavailable Whiteface, Daphney DRAWING TENDER Unavailable Unavailable Whiteface, Daphney DRAWING TENDER Unavailable Unavailable Whiteface, Daphney DRAWING TENDER Unavailable Unavailable Whiteface, Celsa Saab DRAWING TENDER Unavailable Unavailable Whiteface, Celsa Saab DRAWING TENDER Unavailable Unavailable Whiteface, Celsa Saab DRAWING TENDER Unavailable Unavailable O'gladis, A Otf PA Unavailable Unavailable O'gladis, A Otf PA Unavailable Unavailable O'gladis, A Otf PA Unavailable Unavailable O'gladis, A Otf PA Unavailable Unavailable O'gladis, A Otf PA Unavailable Unavailable O'gladis, A Otf PA Unavailable Unavailable O'gladis, A Otf PA Unavailable Unavailable O'gladis, A Otf PA Unavailable Unavailable O'gladis, A Otf PA Unavailable Unavailable O'gladis, A Otf PA Unavailable Unavailable O'gladis, A Otf PA Unavailable Unavailable O'gladis, A Otf PA Unavailable Unavailable O'gladis, A Otf PA Unavailable Unavailable O'gladis, A Otf PA Unavailable Unavailable O'gladis, A Otf PA Unavailable Unavailable O'gladis, A Otf PA Unavailable Unavailable O'gladis, A Otf PA Unavailable Unavailable O'gladis, A Otf PA Unavailable Unavailable O'gladis, A Otf PA Unavailable Unavailable O'gladis, A Otf PA Unavailable Unavailable O'gladis, A Otf PA Unavailable Unavailable O'gladis, A Otf PA Unavailable Unavailable O'gladis, A Otf PA Unavailable Unavailable O'gladis, A Otf PA Unavailable Unavailable O'gladis, A Otf PA Unavailable Unavailable O'gladis, A Otf PA Unavailable Unavailable O'gladis, A Otf PA Unavailable Unavailable O'gladis, A Otf PA Unavailable Unavailable O'gladis, A Otf PA Unavailable Unavailable O'gladis, A Otf PA Unavailable Unavailable O'gladis, A Otf PA Unavailable Unavailable O'gladis, A Otf PA Unavailable Unavailable O'gladis, A Otf PA Unavailable Unavailable Fouzia Garcia, Balta Albarran MD, FACS Unavailable Unavailable Fouzia Garcia, Balta Albarran MD, FACS Unavailable Unavailable Fozuia Garcia, Balta Albarran MD, FACS Unavailable Unavailable Fouzia Garcia, Balta Ablarran MD, FACS Unavailable Unavailable Fouzia Garcia, Balta Albarran MD, FACS Unavailable Unavailable Fouzia Garcia, Balta Albarran MD, FACS Unavailable Unavailable Fouzia Garcia, Balta Albarran MD, FACS Unavailable Unavailable Fouzia Garcia, Balta Albarran MD, FACS Unavailable Unavailable Fouzia Garcia, Balta Albarran MD, FACS Unavailable Unavailable Fouzia Garcia, Balta Albarran MD, FACS Unavailable Unavailable Fouzia Garcia, Balta Albarran MD, FACS Unavailable Unavailable Fouzia Garcia, Balta Albarran MD, FACS Unavailable Unavailable Fouzia Garcia, Balta Albarran MD, FACS Unavailable Unavailable Fragoso Garcia, Balta Albarran MD, FACS Unavailable Unavailable Fragoso Garcia, Balta Albarran MD, FACS Unavailable Unavailable Fragoso Garcia, Balta Albarran MD, FACS Unavailable Unavailable Fragoso Garcia, Balta Albarran MD, FACS Unavailable Unavailable Fragoso Garcia, Balta Albarran MD, FACS Unavailable Unavailable Fragoso Garcia, Balta Albarran MD, FACS Unavailable Unavailable Fragoso Garcia, Balta Albarran MD, FACS Unavailable Unavailable Fragoso Garcia, Balta Albarran MD, FACS Unavailable Unavailable Fragoso Garcia, Balta Albarran MD, FACS Unavailable Unavailable Fragoso Garcia, Balta Albarran MD, FACS Unavailable Unavailable Fragoso Garcia, Balta Albarran MD, FACS Unavailable Unavailable Fragoso Garcia, Balta Albarran MD, FACS Unavailable Unavailable Fragoso Garcia, Balta Albarran MD, FACS Unavailable Unavailable Fragoso Garcia, Balta Albarran MD, FACS Unavailable Unavailable Fragoso Garcia, Balta Albarran MD, FACS Unavailable Unavailable Fragoso Garcia, Balta Albarran MD, FACS Unavailable Unavailable Fragoso Garcia, Balta Albarran MD, FACS Unavailable Unavailable Fragoso Garcia, Balta Albarran MD, FACS Unavailable Unavailable Fragoso Garcia, Balta Albarran MD, FACS Unavailable Unavailable Fragoso Garcia, Balta Albarran MD, FACS Unavailable Unavailable Fragoso Garcia, Balta Albarran MD, FACS Unavailable Unavailable Fragoso Garcia, Balta Albarran MD, FACS Unavailable Unavailable Fragoso Garcia, Balta Albarran MD, FACS Unavailable Unavailable Fragoso Garcia, Balta Albarran MD, FACS Unavailable Unavailable Fragoso Garcia, Balta Albarran MD, FACS Unavailable Unavailable Fragoso Garcia, Balta Albarran MD, FACS Unavailable Unavailable MELVABradley MD Unavailable Unavailable MELVA, Bradley CHADWICK MD Unavailable Unavailable MELVA, Bradley CHADWICK MD Unavailable Unavailable MELVA, Bradley CHADWICK MD Unavailable Unavailable MELVABradley MD Unavailable Unavailable MELVABradley MD Unavailable Unavailable MELVABradley MD Unavailable Unavailable MELVABradley MD Unavailable Unavailable MELVABradley MD Unavailable Unavailable MELVABradley MD Unavailable Unavailable MELVABradley MD Unavailable Unavailable MELVABradley MD Unavailable Unavailable MELVABradley MD Unavailable Unavailable MELVABradley MD Unavailable Unavailable MELVABradley MD Unavailable Unavailable MELVABradley MD Unavailable Unavailable MELVABradley MD Unavailable Unavailable MELVABradley MD Unavailable Unavailable MELVA, Bradley CHADWICK MD Unavailable Unavailable MELVABradley MD Unavailable Unavailable MELVABradley MD Unavailable Unavailable MELVABradley MD Unavailable Unavailable MELVABradley MD Unavailable Unavailable MELVABradley MD Unavailable Unavailable MELVABradley MD Unavailable Unavailable MELVA, C NETTA MD Unavailable Unavailable EMLVA, C NETTA MD Unavailable Unavailable MELVA, C NETTA MD Unavailable Unavailable MELVA, C NETTA MD Unavailable Unavailable MELVA, C NETTA MD Unavailable Unavailable MELVA, C NETTA MD Unavailable Unavailable MELVA, C NETTA MD Unavailable Unavailable MELVA, C NETTA MD Unavailable Unavailable MELVA, C NETTA MD Unavailable Unavailable Re-disclosure Warning The records that you are about to access may contain information from federally-assisted alcohol or drug abuse programs. If such information is present, then the following federally mandated warning applies: This information has been disclosed to you from records protected by federal confidentiality rules (42 CFR part 2). The federal rules prohibit you from making any further disclosure of this information unless further disclosure is expressly permitted by the written consent of the person to whom it pertains or as otherwise permitted by 42 CFR part 2. A general authorization for the release of medical or other information is NOT sufficient for this purpose. The Federal rules restrict any use of the information to criminally investigate or prosecute any alcohol or drug abuse patient.The records that you are about to access may contain highly sensitive health information, the redisclosure of which is protected by Article 27-F of the [facility] Public Health law. If you continue you may have access to information: Regarding HIV / AIDS; Provided by facilities licensed or operated by the [facility] Office of Mental Health; or Provided by the [facility] Office for People With Developmental Disabilities. If such information is present, then the following [facility] mandated warning applies: This information has been disclosed to you from confidential records which are protected by state law. State law prohibits you from making any further disclosure of this information without the specific written consent of the person to whom it pertains, or as otherwise permitted by law. Any unauthorized further disclosure in violation of state law may result in a fine or chcf sentence or both. A general authorization for the release of medical or other information is NOT sufficient authorization for further disc losure. Family History Family Member Name Family Member Gender Family Member Status Date o f Status Description Data Source(s) Unknown Unknown Problem [facility] Unknown Female Problem [facility] ([facility]) Unknown Female Problem [facility] ([facility]) Unknown Female Problem [facility] ([facility]) Unknown Unknown Problem [facility] ([facility] Unknown Unknown Problem [facility] ([facility]) Unknown Unknown Problem [facility] ([facility]) Unknown Unknown Problem [facility] ([facility]) Encounters Encounter Providers Location Date Indications Data Source(s ) Outpatient Attender: Otf MENDOZA [facility] 04/17/2021 09:40:00 AM EDT [facility] ([facility]) OFFICE OUTPATIENT VISIT 15 MINUTES Attender: Bobby Whitfield MD Phys ical Therapy 03/18/2021 09:00:00 AM EDT [facility] ([facility]) Outpatient Attender: Otf MENDOZA [facility] 03/08/2021 10:00:00 AM EDT [facility] ([facility]) Outpatient Attender: Jose Daniel Bey MD Main Office 03/07/2021 02:15:00 PM EDT [facility] ([facility]) Outpatient Attender: Katiana GOLDMANP Main Office 02/19/2021 08:45:00 AM EDT [facility] ([facility] Outpatient Attender: Bobby MENDOZA [facility] 02/13/2021 11:20:00 AM EDT [facility] ([facility]) Outpatient Attender: NETTA Fleming/Kulwant/Lew/Derik berry 02/13/2021 08:15:00 AM EDT [facility] ([facility] OFFICE OUTPATIENT VISIT 15 MINUTES Attender: Bobby Whitfield MD Phys ical Therapy 02/04/2021 08:30:00 AM EDT [facility] ([facility]) Outpatient Attender: Otf MENDOZA [facility] 01/22/2021 01:15:00 PM EDT [facility] ([facility]) Outpatient Attender: Bobby Whitfield MD Physical Therapy 12/20/2020 0 8:45:00 AM EDT [facility] ([facility]) Office Visit Attender: Otf MENDOZA [facility] 12/12/2020 10:00:00 AM EDT [facility] ([facility]) Outpatient Attender: NETTA Fleming/Kulwant/Lew/Reind l 11/20/2020 09:15:00 AM EDT [facility] ([facility] OFFICE OUTPATIENT VISIT 15 MINUTES Attender: Bobby Whitfield MD Phys ical Therapy 11/12/2020 08:45:00 AM EDT [facility] ([facility]) Outpatient Attender: Bobby Whitfield MD Physical Therapy 10/15/2020 0 8:30:00 AM EDT [facility] ([facility]) Outpatient Attender: Otf MENDOZA [facility] 10/10/2020 09:20:00 AM EDT [facility] ([facility]) Outpatient Attender: Otf MENDOZA [facility] 09/24/2020 10:00:00 AM EST [facility] ([facility]) Outpatient Attender: NETTA Fleming/Kulwant/Lew/Reind l 09/17/2020 09:30:00 AM EST [facility] ([facility] Outpatient Attender: FRANCA CLIFFORD DO Family [facility] 09/13/2020 08:20:00 AM EST [facility] ([facility]) ( [facility]) [facility] [address] [place] [address] 08/06/2020 12:00:00 AM EST eCW1 (formerly [facility]) Outpatient Attender: NETTA Fleming/Kulwant/Lew/Reind l 07/17/2020 09:00:00 AM EST [facility] ([facility] Outpatient Attender: Otf MENDOZA [facility] 06/13/2020 07:30:00 AM EST [facility] ([facility]) Outpatient<[id number] ID="[email or web address]">Rx Refills/Changes</td><td>Deion Jones MD, [facility]</td><td></td><td>07/13/2020</td><td>06/04/2020 3:39PM</td><td>06/04/2020 11:59PM</td><td></td> Attender: Deion Garcia MD, FACS 06/04/2020 03:39:00 PM EST - 06/04/2020 11:59:00 PM EST RADU (Deion Garcia MD [facility]) <td ID="encounterTypeDescriptionID1">1 Y ear Follow-Up</td><td>Deion Garcia MD, FACS</td><td>Deion Jones MD [facility]</td><td>06/04/2020</td><td>9:06AM</td><td>9:55AM</td><td><content ID="encounterDiagnosisID1-0">Cataract Senile Posterior Subcapsular Polar</content>, <content ID="encounterDiagnosisID1-1">Conjunctivitis Chronic Allergic</content>, <content ID="encounterDiagnosisID1-2">Dry Eye Syndrome Both Eyes</content>, <content ID="encounterDiagnosisID1-3">Cataract Senile Cortical Bilateral</content></td>Outpatient Attender: Deion Garcia MD, FACS Deion Jones MD [facility] 06/04/2020 09:06:00 AM EST - 06/04/2020 09:55:00 AM ES T Cataract Senile Posterior Subcapsular PolarCataract Senile Cortical BilateralDry Eye Syndrome Both EyesConjunctivitis Chronic Allergic RADU (Deion Garcia MD [facility]) Cataract Senile Posterior Subcapsular Po lar Cataract 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 Conjunctivitis Chronic Allergic Outpatient Attender: NETTA Fleming/Kulwant/Lew/Reind l 05/22/2020 09:30:00 AM EDT MEDENT ([facility]) Outpatient Attender: NETTA Fleming/Kulwant/Lew/Reind l 04/23/2020 01:00:00 PM EDT MEDENT ([facility]) Outpatient Attender: NETTA Fleming/Kulwant/Lew/Reind l 04/03/2020 09:00:00 AM EDT MEDENT ([facility]) Immunizations Vaccine Date Status Description Data Source(s) COVID-19 VACCINE Moderna 04/23/2021 12:00:00 AM EDT completed [facility] Vaccine Series Complete: YESThis Data wa s Submitted to [facility] [employer]. COVID-19 VACCINE Moderna 10/22/2020 12:00:00 AM EDT completed [facility] Vaccine Series Complete: YESThis Data wa s Submitted to [facility] [employer]. COVID-19 VACCINE Moderna 09/21/2020 12:00:00 AM EST completed [facility] Vaccine Series Complete: NOThis Data was Submitted to [facility] [employer]. VARICELLA-ZOSTER VIRUS GLYCOPROTEIN E,REC/AS01B ADJUVA NT/PF 06/13/2020 12:00:00 AM EST completed [facility] This CVX code allows reporting of a vacc ination when formulation is unknown (for example, when recording a pneumococcal vaccination when noted on a vaccination card) 04/26/2020 11:13:00 AM EDT completed CESAR Chavez ([facility]) Medications Medication Brand Name Start Date Product Form Dose Route Admi nistrative Instructions Pharmacy Instructions Status Indications Reaction Description Data Source(s) 1.479-0.188- 0.225 gram 05/09/2021 12:00:00 AM EDT tablet 24 DIRECTED DIRECTED SOLD: 05/09/2021 [facility] 60 mcg (15 mcg x 4)/0.5 mL 05/09/2021 12:00:00 AM EDT syringe 0 DIRECTED DIRECTED SOLD: 05/09/2021 [facility] 100 mcg/0.5 mL 04/23/2021 12:00:00 AM EDT suspension 0 INJECT DIRECTED PER STANDING ORDER INJECT DIRECTED PER STANDING ORDER SOLD: 04/23/2021 [facility] Alprazolam 0.25 MG Oral Tablet ALPRAZOLAM 04/17/2021 12:00:00 AM EDT tablet 120 TAKE 1-2 TABLETS BY MOUTH EVERY 12 HOURS NEEDED FOR ANXIETY MAXIMUM DAILY DOSE = 4 TAKE 1-2 TABLETS BY MOUTH EVERY 12 HOURS NEEDED FOR ANXIETY MAXIMUM DAILY DOSE = 4 SOLD: 04/18/2021 [facility] Acetaminophen 325 MG / Hydrocodone Bitartrate 5 MG Ora l Tablet 5-325 mg HYDROCODONE/ACETAMINOPHEN 03/15/2021 12:00:00 AM EDT tablet 20 TAKE ONE TABLET BY MOUTH EVERY 6 HOURS NEEDED FOR PAIN MAXIMUM DAILY DOSE = FOUR TABLETS TAKE ONE TABLET BY MOUTH EVERY 6 HOURS NEEDED FOR PAIN MAXIMUM DAILY DOSE = FOUR TABLETS SOLD: 03/16/2021 [facility] Acetaminophen 325 MG / Hydrocodone Bitartrate 5 MG Ora l Tablet Hydrocodone Bitartrate/Acetaminophen 03/15/2021 12:00:00 AM EDT ORAL active MEDENT ([facility] ) 0.12 % 03/14/2021 12:00:00 AM EDT mouthwash 473 TAKE 15ML BY MOUTH SWISH AND SPIT THREE TIMES A DAY FOR 7 DAYS TAKE 15ML BY MOUTH SWISH AND SPIT THREE TIMES A DAY FOR 7 DAYS SOLD: 03/14/2021 [facility] chlorhexidine gluconate 1.2 MG/ML Mouthwash Chlorhexidine Gl uconate 03/14/2021 12:00:00 AM EDT ORAL active M EDENT ([facility], ) [id number] 03/09/2021 12:00:00 AM EDT Suspension 480 TAKE 15ML BY MOUTH EVERY 8 HOURS NEEDED FOR PAIN GARGLE AND SPIT TAKE 15ML BY MOUTH EVERY 8 HOURS NEEDED FOR PAIN GARGLE AND SPIT SOLD: 03/09/2021 [facility] Sutab Sutab 03/07/2021 12:00:00 AM EDT active MEDENT ([facility]) Alprazolam 0.25 MG Oral Tablet ALPRAZOLAM 03/07/2021 12:00:00 AM EDT tablet 120 TAKE 1 TO 2 TABLETS BY MOUTH EVERY 12 HO URS NEEDED FOR ANXIETY MAXIMUM DAILY DOSE = 4 TABLETS TAKE 1 TO 2 TABLETS BY MOUTH EVERY 12 HO URS NEEDED FOR ANXIETY MAXIMUM DAILY DOSE = 4 TABLETS SOLD: 03/09/2021 [facility] Cephalexin 500 MG Oral Capsule CEPHALEXIN 02/16/2021 12:00:00 AM EDT capsule 21 TAKE ONE CAPSULE BY MOUTH THREE TIMES A DAY UNTIL GONE TAKE ONE CAPSULE BY MOUTH THREE TIMES A DAY UNTIL GONE SOLD: 02/19/2021 [facility] Cephalexin 500 MG Oral Capsule Cephalexin 02/16/2021 12:00:00 AM EDT ORAL completed MEDENT ([facility]) 0.2 % 02/02/2021 12:00:00 AM EDT drops 2 INSTILL 1 DROP IN AFFECTED EYE DIRECTED ONCE DAILY FOR 10 DAYS INSTILL 1 DROP IN AFFECTED EYE DIRECT ED ONCE DAILY FOR 10 DAYS SOLD: 02/02/2021 [facility] Mouthwash-Om 01/22/2021 12:00:00 AM EDT activ e MEDENT ([facility]) MAGIC MOUTHWASH 01/22/2021 12:00:00 AM EDT suspension 480 USE 15ML BY MOUTH EVER 8 HOURS NEEDED FOR PAIN . GARGLE AND SPIT USE 15ML BY MOUTH EVER 8 HOURS NEEDED FOR PAIN . GARGLE AND SPIT SOLD: 01/22/2021 [facility] 100 mg 01/09/2021 12:00:00 AM EDT capsule 90 TAKE ONE CAPSULE BY MOUTH EVERY DAY TAKE ONE CAPSULE BY MOUTH EVERY DAY SOLD: 01/10/2021 [facility] 100 mg 01/09/2021 12:00:00 AM EDT capsule 90 TAKE ONE CAPSULE BY MOUTH EVERY DAY TAKE ONE CAPSULE BY MOUTH EVERY DAY SOLD: 05/07/2021 [facility] Alprazolam 0.25 MG Oral Tablet ALPRAZOLAM 12/18/2020 12:00:00 AM EDT tablet 120 TAKE 1-2 TABLETS BY MOUTH EVERY 12 HOURS NEEDED FOR ANXIETY MAXIMUM DAILY DOSE = 4 TABLETS TAKE 1-2 TABLETS BY MOUTH EVERY 12 HOURS NEEDED FOR ANXIETY MAXIMUM DAILY DOSE = 4 TABLETS SOLD: 12/20/2020 [facility] Alprazolam 0.25 MG Oral Tablet ALPRAZOLAM 11/13/2020 12:00:00 AM EDT tablet 120 TAKE ONE TO TWO TABLETS BY MOUTH EVERY 1 2 HOURS NEEDED FOR ANXIETY MAXIMUM DAILY DOSE = 4 TABLETS TAKE ONE TO TWO TABLETS BY MOUTH EVERY 1 2 HOURS NEEDED FOR ANXIETY MAXIMUM DAILY DOSE = 4 TABLETS SOLD: 11/18/2020 [facility] Cephalexin 500 MG Oral Capsule CEPHALEXIN 10/16/2020 12:00:00 AM EDT capsule 14 TAKE ONE CAPSULE BY MOUTH EVERY 12 HOURS FOR 7 DAYS TA KE ONE CAPSULE BY MOUTH EVERY 12 HOURS FOR 7 DAYS SOLD: 10/16/2020 [facility] Cephalexin 500 MG Oral Capsule Cephalexin 10/14/2020 12:00:00 AM EDT ORAL completed MEDENT ([facility]) 500 mg 10/10/2020 12:00:00 AM EDT tablet 10 TAKE ONE TABLET BY MOUTH EVERY 12 HOURS TAKE ONE TABLET BY MOUTH EVERY 12 HOURS SOLD: 10/10/2020 [facility] Ciprofloxacin 500 MG Oral Tablet Ciprofloxacin HCL 10/10/2020 12:00 :00 AM EDT completed MEDENT ([facility]) Fluconazole 200 MG Oral Tablet [Diflucan] Diflucan 10/10/2020 1 2:00:00 AM EDT completed MEDENT ([facility]) 200 mg 10/10/2020 12:00:00 AM EDT tablet 3 TAKE 1 TABLET BY MOUTH AFTER FINISHING ANTIIOTICS AND 2 DAYS LATER IF SYMPTOMS PERSIST TAKE 1 TABLET BY MOUTH AFTER FINISHING ANTIIOTICS AND 2 DAYS LATER IF SYMPTOMS PERSIST SOLD: 10/10/2020 [facility] Walker Auto Glides/5 Adjustment Holes/-08/03" 09/24/2020 12:0 0:00 AM EST completed MEDENT ([facility]) 500 mg 09/22/2020 12:00:00 AM EST tablet 14 TAKE ONE TABLET BY MOUTH EVERY 12 HOURS FOR 7 DAYS TAKE ONE TABLET BY MOUTH EVERY 12 HOURS FOR 7 DAYS GRAYSON [facility] Alprazolam 0.25 MG Oral Tablet ALPRAZOLAM 09/13/2020 12:00:00 AM EST tablet 120 TAKE 1-2 TABLETS BY MOUTH EVERY 12 HOURS NEEDED FOR ANXIETY MAXIMUM DAILY DOSE = 4 TABLETS TAKE 1-2 TABLETS BY MOUTH EVERY 12 HOURS NEEDED FOR ANXIETY MAXIMUM DAILY DOSE = 4 TABLETS SOLD: 09/17/2020 [facility] Alprazolam 0.25 MG Oral Tablet ALPRAZOLAM 07/13/2020 12:00:00 AM EST tablet 120 TAKE ONE TO TWO TABLETS BY MOUTH EVERY 1 2 HOURS NEEDED FOR ANXIETY MAXIMUM DAILY DOSE = 4 TAKE ONE TO TWO TABLETS BY MOUTH EVERY 1 2 HOURS NEEDED FOR ANXIETY MAXIMUM DAILY DOSE = 4 SOLD: 07/13/2020 [facility] 1 % 07/13/2020 12:00:00 AM EST drops,suspension 10 INSTILL 1 DROP IN BOTH EYES TWO TIMES A DAY FOR 2 WEEKS, THEN ONCE DAILY FOR 2 WEEKS, THEN STOP INSTILL 1 DROP IN BOTH EYES TWO TIMES A DAY FOR 2 WEEKS, THEN ONCE DAILY FOR 2 WEEKS, THEN STOP SOLD: 07/13/2020 [facility] prednisolone acetate 10 MG/ML Ophthalmic Suspension prednisoLONE Acetate 1% Ophthalmic Suspension prednisoLONE Acetate 1% Ophthalmic Suspension 07/13/20 12:00:00 AM EST completed prednisolone acetate 10 MG/ML Ophthalmic Suspension ARDU (Deion Garcia MD [facility]) 500 mg 06/13/2020 12:00:00 AM EST tablet 14 TAKE ONE TABLET BY MOUTH EVERY 12 HOURS TAKE ONE TABLET BY MOUTH EVERY 12 HOURS SOLD: 06/13/2020 [facility] 0.01 % (0.1 mg/gram) 06/13/2020 12:00:00 AM EST cream 42 APPLY VAGINALLY THREE TIMES A WEEK DIRECTED APPLY VAGINALLY THREE TIMES A WEEK DIRECTED SOLD: 06/13/2020 [facility] Estrogens, Conjugated (FCI) 0.625 MG/ML Vaginal Cream [Agustina rin] Premarin 06/13/2020 12:00:00 AM EST completed MEDENT ([facility]) Shingrix Shingrix 06/13/2020 12:00:00 AM EST compl eted MEDENT ([facility]) Ciprofloxacin 500 MG Oral Tablet Ciprofloxacin HCL 06/13/2020 12:00 :00 AM EST completed MEDENT ([facility]) Estradiol 0.1 MG/ML Vaginal Cream Estradiol 06/13/2020 12:00:00 AM EST active MEDENT ([facility]) [facility] Melatonin 5 MG Oral Capsule [facility] Melatonin 5 MG Oral Caps ule 06/04/2020 12:00:00 AM EST 1 active [facility] Alicja maldonado RADU (Deion Garcia MD [facility]) Alprazolam 0.25 MG Oral Tablet ALPRAZOLAM 05/26/2020 12:00:00 AM EDT tablet 120 TAKE ONE TO TWO TABLETS BY MOUTH EVERY 1 2 HOURS NEEDED FOR ANXIETY MAXIMUM DAILY DOSE = 4 TAKE ONE TO TWO TABLETS BY MOUTH EVERY 1 2 HOURS NEEDED FOR ANXIETY MAXIMUM DAILY DOSE = 4 SOLD: 05/28/2020 [facility] 0.12 % 04/23/2020 12:00:00 AM EDT mouthwash 473 SWISH AND SPIT 15ML BY MOUTH THREE TIMES A DAY FOR 10 DAYS SWISH AND SPIT 15ML BY MOUTH THREE TIMES A DAY FOR 10 DAYS SOLD: 04/23/2020 [facility] chlorhexidine gluconate 1.2 MG/ML Mouthwash Chlorhexidine Gl uconate 04/23/2020 12:00:00 AM EDT ORAL completed MEDENT ([facility] ) Alprazolam 0.25 MG Oral Tablet ALPRAZOLAM 04/11/2020 12:00:00 AM EDT tablet 120 TAKE ONE TO TWO TABLETS BY MOUTH EVERY 1 2 HOURS NEEDED FOR ANXIETY MAXIMUM DAILY DOSE = 4 TABLETS TAKE ONE TO TWO TABLETS BY MOUTH EVERY 1 2 HOURS NEEDED FOR ANXIETY MAXIMUM DAILY DOSE = 4 TABLETS SOLD: 04/13/2020 [facility] 100 mg 12/12/2019 12:00:00 AM EDT capsule 90 TAKE ONE CAPSULE BY MOUTH EVERY DAY TAKE ONE CAPSULE BY MOUTH EVERY DAY SOLD: 10/16/2020 [facility] 100 mg 12/12/2019 12:00:00 AM EDT capsule 90 TAKE ONE CAPSULE BY MOUTH EVERY DAY TAKE ONE CAPSULE BY MOUTH EVERY DAY SOLD: 03/28/2020 [facility] 100 mg 12/12/2019 12:00:00 AM EDT capsule 90 TAKE ONE CAPSULE BY MOUTH EVERY DAY TAKE ONE CAPSULE BY MOUTH EVERY DAY SOLD: 07/13/2020 [facility] Insurance Providers Payer name Policy type / Coverage type Policy ID Covered alliance party ID Covered alliance party's relationship to ozuna Policy Ozuna Plan Information [place] 306/806 [id number] SP [id number] [place] 306/806 [id number] SP [id number] [facility] [id number] SP [id number] [place] 306/806 [id number] SP [id number] [place] PPO 302/307 [id number] SP [id number] WELLCARE [id number] SP [id number] TODAYS OPTIONS [id number] SP [id number] WELLCARE [id number] SP [id number] WELLCARE [id number] SP [id number] WELLCARE [id number] SP [id number] [facility] [employer] Commercial [id number] Self [id number] [facility] [employer] Commercial [id number] Self [id number] Today's Option Commercial [id number] 564.0 Self [id number] Medicare [place] Medicare Primary [id number] Self [id number] Today's Options Medicare Commercial [id number] Self [id number] Medicare [place]GS Medicare Primary [id number] Self [id number] Today's Options Medicare Commercial [id number] Self [id number] Today[employer] Option Commercial [id number] 564.0 Self [id number] Today[employer] Commercial [id number] 564.0 Self [id number] Today[employer] Option Commercial [id number] 564.0 Self [id number] TODAYS OPTIONS/[place] O [id number] S [id number] Today's Option Commercial [id number] 564.0 Self [id number] Today[employer] Option Commercial [id number] 564.0 Self [id number] Today[employer] Commercial [id number] 564.0 Self [id number] Today's Option Commercial [id number] 564.0 Self [id number] Medicare Upstate/NGS Medicare Primary [id number] Self [id number] Today's Options Medicare Commercial [id number] Self [id number] Today's Option Commercial [id number] 564.0 Self [id number] Today's Options Medicare Commercial [id number] Self Medicare [place]GS Medicare Primary [id number] Self Today[employer] Option Commercial [id number] [id number] Self TODAYS OPTIONS [id number] SP [id number] Today's Option Medicare Commercial [id number] Self MEDICARE [id number] SP [id number] T [facility] O [id number] S [id number] [facility] [place] [facility] [id number] SP [id number] MEDICARE [id number] SP [id number] T MEDICARE C [id number] S [id number] T EXCELLUS BCBS B [id number] S VYS [facility] O [id number] S [id number] [place] 306/806 [id number] SP [id number] MEDICARE [id number] SP [id number] [facility] [place] Commercial [id number] Self [facility] CLARE S UNAVAILABLE [id number] S UNAVAILABLE EXCELLUS BCBS P [id number] S VYA SELF PAY UNAVAILABLE SP UNAVAILA BLE [id number] WELLCARE O [id number] S [id number] Wellcare Commercial [id number] Self [id number] Today's Option Commercial [id number] Self [id number] Wellcare Commercial [id number] S elf [id number] Today's Option Commercial [id number] 564.0 Self [id number] Today's Option Commercial [id number] 564.0 Self [id number] TODAYS OPTIONS [id number] Medicare [facility] Medicare Primary [id number] Self [id number] Today's Options Medicare Commercial [id number] Self [id number] Medicare [place]/NGS Medicare Primary [id number] Self [id number] Today's Options Medicare Commercial [id number] Self [id number] Problems, Conditions, and Diagnoses Code Display Name Description Problem Type Effective Dates Data Source(s) 05042433 Dysphagia Dysphagia Problem 03/07/2021 12:00:00 AM ED T GIRISH ([facility]) F41.1 Generalized anxiety disorder Generalized anxiety disor surya Problem 06/13/2020 12:00:00 AM EST GIRISH ([facility]) Surgeries/Procedures Procedure Description Date Indications Data Source(s) OFFICE OUTPATIENT VISIT 25 MINUTES 04/17/2021 12:00:00 AM EDT MEDSEVEN ([facility]) OFFICE OUTPATIENT VISIT 15 MINUTES 03/18/2021 12:00:00 AM EDT MEDENT ([facility]) Electrocardiogram Complete 03/08/2021 12:00:00 AM EDT MEDENT ([facility]) OFFICE OUTPATIENT VISIT 15 MINUTES 03/08/2021 12:00:00 AM EDT MEDENT ([facility]) OFFICE OUTPATIENT NEW 30 MINUTES 03/07/2021 12:00:00 A M EDT MEDENT ([facility]) THERAPEUTIC PX 1/> AREAS EACH 15 MIN EXERCISES 12:00:00 AM EDT MEDENT ([facility]) MANUAL THERAPY TQS 1/> REGIONS EACH 15 MINUTES 12:00:00 AM EDT MEDENT ([facility]) THERAPEUTIC PX 1/> AREAS EACH 15 MIN EXERCISES 12:00:00 AM EDT MEDENT ([facility]) MANUAL THERAPY TQS 1/> REGIONS EACH 15 MINUTES 12:00:00 AM EDT MEDENT ([facility]) OFFICE OUTPATIENT VISIT 25 MINUTES 02/19/2021 12:00:00 AM EDT MEDENT ([facility]) OFFICE OUTPATIENT VISIT 15 MINUTES 02/13/2021 12:00:00 AM EDT MEDENT ([facility]) OFFICE OUTPATIENT VISIT 25 MINUTES 02/13/2021 12:00:00 AM EDT MEDENT ([facility] ) THERAPEUTIC PX 1/> AREAS EACH 15 MIN EXERCISES 12:00:00 AM EDT MEDENT ([facility]) MANUAL THERAPY TQS 1/> REGIONS EACH 15 MINUTES 12:00:00 AM EDT MEDENT ([facility]) OFFICE OUTPATIENT VISIT 15 MINUTES 02/04/2021 12:00:00 AM EDT MEDENT ([facility]) THERAPEUTIC PX 1/> AREAS EACH 15 MIN EXERCISES 12:00:00 AM EDT MEDENT ([facility]) THERAPEUTIC PX 1/> AREAS EACH 15 MIN EXERCISES 12:00:00 AM EDT MEDENT ([facility]) MANUAL THERAPY TQS 1/> REGIONS EACH 15 MINUTES 12:00:00 AM EDT MEDENT ([facility]) OFFICE OUTPATIENT VISIT 25 MINUTES 01/22/2021 12:00:00 AM EDT MEDENT ([facility]) THERAPEUTIC PX 1/> AREAS EACH 15 MIN EXERCISES 12:00:00 AM EDT MEDENT ([facility]) THERAPEUTIC PX 1/> AREAS EACH 15 MIN EXERCISES 12:00:00 AM EDT MEDENT ([facility]) THERAPEUTIC PX 1/> AREAS EACH 15 MIN EXERCISES 12:00:00 AM EDT MEDENT ([facility] Re-Eval Of PT Established Plan Of Care 20Mins Face To Face P T/Fam 12/28/2020 12:00:00 AM EDT MEDENT ([facility]) THERAPEUTIC PX 1/> AREAS EACH 15 MIN EXERCISES 12:00:00 AM EDT MEDENT ([facility]) OFFICE OUTPATIENT VISIT 25 MINUTES 12/20/2020 12:00:00 AM EDT MEDENT ([facility]) X-Ray Femur Minimum 2 Views 12/20/2020 12:00:00 AM EDT MEDENT ([facility]) THERAPEUTIC PX 1/> AREAS EACH 15 MIN EXERCISES 021 12:00:00 AM EDT MEDENT ([facility]) THERAPEUTIC PX 1/> AREAS EACH 15 MIN EXERCISES 12:00:00 AM EDT MEDENT ([facility]) THERAPEUTIC PX 1/> AREAS EACH 15 MIN EXERCISES 12:00:00 AM EDT MEDENT ([facility]) THERAPEUTIC PX 1/> AREAS EACH 15 MIN EXERCISES 021 12:00:00 AM EDT MEDENT ([facility]) OFFICE OUTPATIENT VISIT 15 MINUTES 11/20/2020 12:00:00 AM EDT MEDENT ([facility] ) THERAPEUTIC PX 1/> AREAS EACH 15 MIN EXERCISES 12:00:00 AM EDT MEDENT ([facility]) THERAPEUTIC PX 1/> AREAS EACH 15 MIN EXERCISES 021 12:00:00 AM EDT MEDENT ([facility]) OFFICE OUTPATIENT VISIT 15 MINUTES 11/12/2020 12:00:00 AM EDT MEDENT ([facility] ) THERAPEUTIC PX 1/> AREAS EACH 15 MIN EXERCISES 12:00:00 AM EDT MEDENT ([facility]) THERAPEUTIC PX 1/> AREAS EACH 15 MIN EXERCISES 12:00:00 AM EDT MEDENT ([facility]) THERAPEUTIC PX 1/> AREAS EACH 15 MIN EXERCISES 12:00:00 AM EDT MEDENT ([facility]) Physical Therapy Eval - Low Complexity 10/25/2020 12:0 0:00 AM EDT MEDENT ([facility]) OFFICE OUTPATIENT VISIT 25 MINUTES 10/15/2020 12:00:00 AM EDT MEDENT ([facility]) OFFICE OUTPATIENT VISIT 25 MINUTES 10/10/2020 12:00:00 AM EDT MEDENT ([facility]) MRI Lower Extremity Any Joint 10/09/2020 12:00:00 AM E DT MEDENT ([facility]) MRI Lower Extremity Any Joint 10/09/2020 12:00:00 AM E DT MEDENT ([facility]) X-Ray Femur Minimum 2 Views 10/04/2020 12:00:00 AM EST MEDENT ([facility]) OFFICE OUTPATIENT VISIT 25 MINUTES 10/04/2020 12:00:00 AM EST MEDENT ([facility]) OFFICE OUTPATIENT VISIT 15 MINUTES 09/24/2020 12:00:00 AM EST MEDENT ([facility]) OFFICE OUTPATIENT VISIT 15 MINUTES 09/17/2020 12:00:00 AM EST MEDENT ([facility] ) OFFICE OUTPATIENT VISIT 25 MINUTES 09/13/2020 12:00:00 AM EST MEDENT ([facility]) Mammography (procedure) 08/06/2020 12:00:00 AM EST MEDENT ([facility]) Surgical / procedural history : Shoulder Surgery 2007, D & C x 2 2009, 3 Colonoscopy 2007, EGD 2014, Tounge ablation 2017. 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 06/04/2020 12:00:00 AM EST RADU (Deion Garcia MD [facility]) Intermediate Eye Exam Established Patient Intermediate Eye Exam Established Patient 06/04/2020 12:00:00 AM EST RADU (Ludwin Garcia MD [facility]) Results ID Date Data Source [id number] 03/14/2021 01:34:00 PM EDT MEDENT ([facility] ) Name Value Range Interpretation Code Description Data Italia rce(s) Supporting Document(s) Surgical pathology study Laboratory test result MEDENT ([facility]) FINAL DIAGNOSIS Tongue, left lateral, biopsy: Hyperkeratotic squamous mucosa with chronic inflammation, consistent with leukoplakia. No evidence for malignancy. 03/18/2021 - 1102 CLINICAL DIAGNOSIS Leukoplakia left oral tongue 03/15/2021 - 1319 GROSS DIAGNOSIS Received in formalin labeled "biopsy left lateral tongue" and consists of one fragment of land tissue measuring 0.5 x 0.5 x 0.3 cm. All in one. -SVY 03/15/2021 - 1319 Signed ARMIDA ALLEN MD 03/18/2021 1103 ID Date Data Source [id number] 03/08/2021 10:51:00 AM EDT MEDENT ([facility]) Name Value Range Interpretation Code Description Data Italia rce(s) Supporting Document(s) EKG Laboratory test result MEDENT ([facility]) ID Date Data Source [id number] 02/13/2021 04:47:00 PM EDT MEDENT ([facility]) Name Value Range Interpretation Code Description Data [place] rce(s) Supporting Document(s) Inhouse Leukocytes Laboratory test result [facility] ([facility]) Inhouse Protein Laboratory test result [facility] ([facility]) Inhouse Nitrite Laboratory test result [facility] ([facility]) Inhouse Urobilinogen Laboratory test result [facility] ([facility]) Inhouse Specific [place] 1.005 [facility] ([facility]) Inhouse Hemoglobin Laboratory test result [facility] ([facility]) Inhouse PH 7 [facility] ([facility]) Inhouse Bilirubin Laboratory test result [facility] ([facility]) Inhouse Glucose Laboratory test result [facility] ([facility]) Inhouse Ketones Laboratory test result [facility] ([facility]) ID Date Data Source [id number] 02/13/2021 11:14:00 AM EDT [facility] [facility] Name Value Range Interpretation Code Description Data Italia rce(s) Supporting Document(s) Bacteria identified in Urine by Culture Laboratory test result Normal (applies to non-numeric results) [facility] ([facility]) <content>FULL REPORT IN LAB NOTES (eCW a nd [facility]).</content>
<content></content>
<content>ORGANISM 1: KLEBSIELLA PNEUMONIAE</content>
<content></content>
<content>COLONY COUNT >100,000</content>
<content></content>
<content></content>
<content> ORGANISM 1: KLEBSIELLA PNEUMONIAE</content>
<content></content>
<content>KLEBSIELLA PNEUMONIAE: REACTION</content>
<content>TRIMETHOPRIM/SULFAMETHOXAZOLE IV 160mg TMP & 800mg SMXq6h <=20 S</content>
<content> TRIMETHOPRIM/SULFAMETHOXAZOLE PO Bactrim DS Bid <=20 S</content>
<content>AMPICILLIN IV 500mg q6h >=32 R</content>
<content>AMPICILLIN PO 500mg q6h fasting >=32 R</content>
<content>GENTAMICIN IV 80mg q8h <=1 S</content>
<content>NITROFURANTOIN PO 100mg BID 128 R</content>
<content>CEFAZOLIN IV 1gm q8h <=4 S</content>
<content>LEVOFLOXACIN IV 500mg qd <=0.12 S</content>
<content>LEVOFLOXACIN PO 250mg qd <=0.12 S</content>
<content>LEVOFLOXACIN PO 500mg qd <=0.12 S</content>
<content>TOBRAMYCIN IV 80mg q8h <=1 S</content>
<content> CEFTRIAXONE IV 1gm q24h <=1 S</content>
<content>CEFTAZIDIME IV 1gm q8h <=1 S</content>
<content>AMPICILLIN/SULBACTAM IV 1.5g q6h 8 S</content>
<content>PIPERACILLIN/TAZOBACTAM IV 2.25 gm q6h <=4 S</content>
<content>AZTREONAM IV 1gm q8h <=1 S</content>
<content>ERTAPENEM IV 1gm qd <=0.5 S</content>
<content>MEROPENEM IV 1 gm q8h <=0.25 S</content>
<content>MEROPENEM IV 500 mg q8h <=0.25 S</content>
<content>TIGECYCLINE IV 50mg q12h 1 S</content>
<content>CEFEPIME IV 1 gm q12h <=1 S</content>
<content>CEFEPIME IV 2 gm q12h <=1 S</content>
<content>EXTD BRD SPCTRM BETA LACTAMASE IV NEGATIVE FOR ESBL</content>
<content></content> Bacteria identified in Genital specimen by Aerobe cult ure Laboratory test result Normal (applies to non-numeric results) [facility] ([facility]) <content>FULL REPORT IN LAB NOTES (eCW a nd [facility]).</content>
<content>NORMAL ARUNA PRESENT</content>
<content></content>
<content>ORGANISM 1: PROTEUS MIRABILIS</content>
<content></content>
<content>QUANTITY OF GROWTH MODERATE</content>
<content></content>
<content>ORGANISM 2: KLEBSIELLA PNEUMONIAE</content>
<content></content>
<content>QUANTITY OF GROWTH HEAVY</content>
<content></content>
<content>ORGANISM 3: ESCHERICHIA COLI</content>
<content></content>
<content>QUANTITY OF GROWTH HEAVY</content>
<content></content>
<content></content>
<content>ORGANISM 1: PROTEUS MIRABILIS</content>
<content>ORGANISM 2: KLEBSIELLA PNEUMONIAE</content>
<content>ORGANISM 3: ESCHERICHIA COLI</content>
<content></content>
<content>PROTEUS MIRABILIS: REACTION</content>
<content> TRIMETHOPRIM/SULFAMETHOXAZOLE IV 160mg TMP & 800mg SMXq6h <=20 S</content>
<content>TRIMETHOPRIM/SULFAMETHOXAZOLE PO Bactrim DS Bid <=20 S</content>
<content>AMPICILLIN IV 500mg q6h <=2 S</content>
<content>AMPICILLIN PO 500mg q6h fasting <=2 S</content>
<content>GENTAMICIN IV 80mg q8h <=1 S</content>
<content>CEFAZOLIN IV 1gm q8h <=4 S</content>
<content>LEVOFLOXACIN IV 500mg qd <=0.12 S</content>
<content>LEVOFLOXACIN PO 250mg qd <=0.12 S</content>
<content>LEVOFLOXACIN PO 500mg qd <=0.12 S</content>
<content>TOBRAMYCIN IV 80mg q8h <=1 S</content>
<content> CEFTRIAXONE IV 1gm q24h <=1 S</content>
<content>CEFTAZIDIME IV 1gm q8h <=1 S</content>
<content>AMPICILLIN/SULBACTAM IV 1.5g q6h <=2 S</content>
<content>PIPERACILLIN/TAZOBACTAM IV 2.25 gm q6h <=4 S</content>
<content>AZTREONAM IV 1gm q8h <=1 S</content>
<content>ERTAPENEM IV 1gm qd <=0.5 S</content>
<content> MEROPENEM IV 1 gm q8h <=0.25 S</content>
<content>MEROPENEM IV 500 mg q8h <=0.25 S</content>
<content>TIGECYCLINE IV 50mg q12h 4 R</content>
<content>CEFEPIME IV 1 gm q12h <=1 S</content>
<content>CEFEPIME IV 2 gm q12h <=1 S</content>
<content></content>
<content>KLEBSIELLA PNEUMONIAE: REACTION</content>
<content> TRIMETHOPRIM/SULFAMETHOXAZOLE IV 160mg TMP & 800mg SMXq6h <=20 S</content>
<content>TRIMETHOPRIM/SULFAMETHOXAZOLE PO Bactrim DS Bid <=20 S</content>
<content>AMPICILLIN IV 500mg q6h >=32 R</content>
<content>AMPICILLIN PO 500mg q6h fasting >=32 R</content>
<content> GENTAMICIN IV 80mg q8h <=1 S</content>
<content>CEFAZOLIN IV 1gm q8h <=4 S</content>
<content>LEVOFLOXACIN IV 500mg qd <=0.12 S</content>
<content>LEVOFLOXACIN PO 250mg qd <=0.12 S</content>
<content>LEVOFLOXACIN PO 500mg qd <=0.12 S</content>
<content>TOBRAMYCIN IV 80mg q8h <=1 S</content>
<content> CEFTRIAXONE IV 1gm q24h <=1 S</content>
<content>CEFTAZIDIME IV 1gm q8h <=1 S</content>
<content>AMPICILLIN/SULBACTAM IV 1.5g q6h 4 S</content>
<content>PIPERACILLIN/TAZOBACTAM IV 2.25 gm q6h <=4 S</content>
<content>AZTREONAM IV 1gm q8h <=1 S</content>
<content>ERTAPENEM IV 1gm qd <=0.5 S</content>
<content>MEROPENEM IV 1 gm q8h <=0.25 S</content>
<content>MEROPENEM IV 500 mg q8h <=0.25 S</content>
<content>TIGECYCLINE IV 50mg q12h 1 S</content>
<content>CEFEPIME IV 1 gm q12h <=1 S</content>
<content>CEFEPIME IV 2 gm q12h <=1 S</content>
<content>EXTD BRD SPCTRM BETA LACTAMASE IV NEGATIVE FOR ESBL</content>
<content></content>
<content>ESCHERICHIA COLI: REACTION</content>
<content>TRIMETHOPRIM/SULFAMETHOXAZOLE IV 160mg TMP & 800mg SMXq6h <=20 S</content>
<content> TRIMETHOPRIM/SULFAMETHOXAZOLE PO Bactrim DS Bid <=20 S</content>
<content>AMPICILLIN IV 500mg q6h >=32 R</content>
<content>AMPICILLIN PO 500mg q6h fasting >=32 R</content>
<content>GENTAMICIN IV 80mg q8h <=1 S</content>
<content>CEFAZOLIN IV 1gm q8h <=4 S</content>
<content>LEVOFLOXACIN IV 500mg qd >=8 R</content>
<content>LEVOFLOXACIN PO 250mg qd >=8 R</content>
<content>LEVOFLOXACIN PO 500mg qd >=8 R</content>
<content>TOBRAMYCIN IV 80mg q8h <=1 S</content>
<content>CEFTRIAXONE IV 1gm q24h <=1 S</content>
<content> CEFTAZIDIME IV 1gm q8h <=1 S</content>
<content>AMPICILLIN/SULBACTAM IV 1.5g q6h 16 I</content>
<content>PIPERACILLIN/TAZOBACTAM IV 2.25 gm q6h <=4 S</content>
<content>AZTREONAM IV 1gm q8h <=1 S</content>
<content>ERTAPENEM IV 1gm qd <=0.5 S</content>
<content>MEROPENEM IV 1 gm q8h <=0.25 S</content>
<content> MEROPENEM IV 500 mg q8h <=0.25 S</content>
<content>TIGECYCLINE IV 50mg q12h <=0.5 S</content>
<content>CEFEPIME IV 1 gm q12h <=1 S</content>
<content>CEFEPIME IV 2 gm q12h <=1 S</content>
<content>EXTD BRD SPCTRM BETA LACTAMASE IV NEGATIVE FOR ESBL</content>
<content></content> ID Date Data Source [id number] 12/07/2020 08:06:00 AM EDT [facility] ([facility]) Name Value Range Interpretation Code Description Data Italia rce(s) Supporting Document(s) Cholesterol Level 188 mg/dL Normal (applies to non-numeri c results) [facility] ([facility]) Triglycerides Level 195 mg/dL Above high normal [facility] ([facility]) HDL Cholesterol 43 mg/dL Normal (applies to non-numeric results) [facility] Cholesterol Risk Ratio 4.372 Normal (applies to non-n umeric results) [facility] ([facility]) LDL Cholesterol 106 mg/dL Above high normal [facility] ([facility]) Non-HDL-C 145 mg/dL Normal (applies to non-numeric resul ts) [facility] ID Date Data Source [id number] 12/07/2020 08:06:00 AM EDT [facility] Name Value Range Interpretation Code Description Data Italia rce(s) Supporting Document(s) Creatinine For GFR 0.98 mg/dL 0.55-1.30 Normal (applies to non -numeric results) [facility] ([facility]) Blood Urea Nitrogen 13 mg/dL 7-18 Normal (applies to non-nume jaleel results) [facility] ([facility]) Glucose, Fasting 107 mg/dL 70-100 Above high normal [facility] Sodium Level 141 meq/L 136-145 Normal (applies to non-numeric res ults) [facility] Glomerular Filtration Rate 59.4 Normal (applies to n on-numeric results) [facility] ([facility]) <content>Units are mL/min/1.73 m2</content>
<content></content>
<content>Chronic Kidney Disease Staging per NKF:</content>
<content></content>
<content>Stage I & II GFR >=60 Normal to Mildly Decreased</content>
<content>Stage III GFR 30- 59 Moderately Decreased</content>
<content>Stage IV GFR 15-29 Severely Decreased</content>
<content>Stage V GFR <15 Very Little GFR Left</content>
<content>ESRD GFR <15 on TERMITE TREATER HELPER</content>
<content></content> Potassium Serum 4.5 meq/L 3.5-5.1 Normal (applies to non-numeric results) [facility] ([facility]) Anion Gap 5 meq/L 8-16 Below low normal [facility] ( [facility]) Carbon Dioxide Level 27 meq/L 21-32 Normal (applies to non-num adri results) [facility] Chloride Level 109 meq/L 98-107 Above high normal [facility] ([facility]) Ast/Sgot 32 U/L 7-37 Normal (applies to non-numeric resul ts) [facility] ([facility]) Alt/SGPT 44 U/L 12-78 Normal (applies to non-numeric resul ts) [facility] Calcium Level 9.7 mg/dL 8.8-10.2 Normal (applies to non-numeric re sults) [facility] Bilirubin,Total 0.5 mg/dL 0.2-1.0 Normal (applies to non-numeric results) [facility] ([facility]) Total Protein 8.0 GM/DL 6.4-8.2 Normal (applies to non-numeric re sults) [facility] ([facility]) Alkaline Phosphatase 93 U/L 45-117 Normal (applies to non-num adri results) [facility] Albumin 4.1 GM/DL 3.2-5.2 Normal (applies to non-numeric resul ts) [facility] Albumin/Globulin Ratio 1.1 1.2-2.2 Below low normal [facility] ([facility]) ID Date Data Source [id number] 12/07/2020 08:06:00 AM EDT [facility] Name Value Range Interpretation Code Description Data Italia rce(s) Supporting Document(s) White Blood Count 4.0 10 4.0-10.0 Normal (applies to non-numeri c results) [facility] Red Blood Count 4.85 10 4.00-5.40 Normal (applies to non-numeric results) [facility] Hematocrit 44.6 % 36.0-47.0 Normal (applies to non-numeric resul ts) [facility] Hemoglobin 13.8 g/dL 12.0-15.5 Normal (applies to non-numeric resul ts) [facility] Mean Corpuscular Volume 92.0 fl 80.0-96.0 Normal ( applies to non-numeric results) [facility] ([facility]) Red Cell Distribution Width 13.9 % 11.5-14.5 Norm al (applies to non-numeric results) [facility] ([facility]) Mean Corpuscular HGB Conc 30.9 g/dL 32.0-36.5 Below low normal [facility] ([facility]) Mean Corpuscular Hemoglobin 28.5 pg 27.0-33.0 Norm al (applies to non-numeric results) [facility] ([facility]) Platelet Count, Automated 196 10 150-450 Normal (applies to non-numeric results) [facility] ([facility]) Neutrophils % 38.3 % 36.0-66.0 Normal (applies to non-numeric re sults) [facility] ([facility]) Cecil % 8.3 % 2.0-8.0 Above high normal [facility] ([facility]) Lymph % 50.0 % 24.0-44.0 Above high normal [facility] ([facility]) Eos % 2.8 % 0.0-3.0 Normal (applies to non-numeric resul ts) [facility] ([facility]) Baso % 0.3 % 0.0-1.0 Normal (applies to non-numeric resul ts) [facility] ([facility]) Lymph # 2.0 10 1.5-5.0 Normal (applies to non-numeric resul ts) [facility] ([facility]) Neutrophils # 1.5 10 1.5-8.5 Normal (applies to non-numeric re sults) [facility] ([facility]) Immature Granulocyte % 0.3 % 0-3.0 Normal (applies to non-n umeric results) [facility] ([facility]) Nucleated Red Blood Cell % 0.0 % 0-0 Normal (applies to n on-numeric results) [facility] ([facility]) Cecil # 0.3 10 0.0-0.8 Normal (applies to non-numeric resul ts) [facility] ([facility]) Baso # 0.0 10 0.0-0.2 Normal (applies to non-numeric resul ts) [facility] ([facility]) Eos # 0.1 10 0.0-0.5 Normal (applies to non-numeric resul ts) [facility] ([facility]) ID Date Data Source [id number] 10/10/2020 10:11:00 AM EDT [facility] ([facility]) Name Value Range Interpretation Code Description Data Italia rce(s) Supporting Document(s) Inhouse Leukocytes Laboratory test result [facility] ([facility]) Inhouse Nitrite Laboratory test result [facility] ([facility]) Inhouse Protein Laboratory test result [facility] ([facility]) Inhouse Urobilinogen 1 [facility] ([facility]) Inhouse PH 6 [facility] ([facility]) Inhouse Hemoglobin Laboratory test result [facility] ([facility]) Inhouse Bilirubin Laboratory test result [facility] ([facility]) Inhouse Specific [place] 1.020 [facility] ([facility]) Inhouse Ketones Laboratory test result [facility] ([facility]) Inhouse Glucose Laboratory test result [facility] ([facility]) ID Date Data Source [id number] 10/10/2020 10:00:00 AM EDT [facility] ([facility]) Name Value Range Interpretation Code Description Data Italia rce(s) Supporting Document(s) Bacteria identified in Genital specimen by Aerobe cult ure Laboratory test result Normal (applies to non-numeric results) [facility] ([facility]) <content>FULL REPORT IN LAB NOTES (eCW a nd [facility]).</content>
<content>NORMAL ARUNA PRESENT</content>
<content></content>
<content>ORGANISM 1: PROTEUS MIRABILIS</content>
<content></content>
<content>QUANTITY OF GROWTH HEAVY</content>
<content></content>
<content>ORGANISM 2: KLEBSIELLA PNEUMONIAE</content>
<content></content>
<content>QUANTITY OF GROWTH HEAVY</content>
<content></content>
<content>ORGANISM 3: ESCHERICHIA COLI</content>
<content></content>
<content>QUANTITY OF GROWTH HEAVY</content>
<content></content>
<content></content>
<content>ORGANISM 1: PROTEUS MIRABILIS</content>
<content>ORGANISM 2: KLEBSIELLA PNEUMONIAE</content>
<content>ORGANISM 3: ESCHERICHIA COLI</content>
<content></content>
<content>PROTEUS MIRABILIS: REACTION</content>
<content> TRIMETHOPRIM/SULFAMETHOXAZOLE IV 160mg TMP & 800mg SMXq6h <=20 S</content>
<content>TRIMETHOPRIM/SULFAMETHOXAZOLE PO Bactrim DS Bid <=20 S</content>
<content>AMPICILLIN IV 500mg q6h <=2 S</content>
<content>AMPICILLIN PO 500mg q6h fasting <=2 S</content>
<content>GENTAMICIN IV 80mg q8h <=1 S</content>
<content>CEFAZOLIN IV 1gm q8h 8 S</content>
<content>LEVOFLOXACIN IV 500mg qd <=0.12 S</content>
<content>LEVOFLOXACIN PO 250mg qd <=0.12 S</content>
<content>LEVOFLOXACIN PO 500mg qd <=0.12 S</content>
<content>TOBRAMYCIN IV 80mg q8h <=1 S</content>
<content> CEFTRIAXONE IV 1gm q24h <=1 S</content>
<content>CEFTAZIDIME IV 1gm q8h <=1 S</content>
<content>AMPICILLIN/SULBACTAM IV 1.5g q6h <=2 S</content>
<content>PIPERACILLIN/TAZOBACTAM IV 2.25 gm q6h <=4 S</content>
<content>AZTREONAM IV 1gm q8h <=1 S</content>
<content>ERTAPENEM IV 1gm qd <=0.5 S</content>
<content> MEROPENEM IV 1 gm q8h <=0.25 S</content>
<content>MEROPENEM IV 500 mg q8h <=0.25 S</content>
<content>TIGECYCLINE IV 50mg q12h 4 R</content>
<content>CEFEPIME IV 1 gm q12h <=1 S</content>
<content>CEFEPIME IV 2 gm q12h <=1 S</content>
<content></content>
<content>KLEBSIELLA PNEUMONIAE: REACTION</content>
<content> TRIMETHOPRIM/SULFAMETHOXAZOLE IV 160mg TMP & 800mg SMXq6h <=20 S</content>
<content>TRIMETHOPRIM/SULFAMETHOXAZOLE PO Bactrim DS Bid <=20 S</content>
<content>AMPICILLIN IV 500mg q6h >=32 R</content>
<content>AMPICILLIN PO 500mg q6h fasting >=32 R</content>
<content> GENTAMICIN IV 80mg q8h <=1 S</content>
<content>CEFAZOLIN IV 1gm q8h <=4 S</content>
<content>LEVOFLOXACIN IV 500mg qd <=0.12 S</content>
<content>LEVOFLOXACIN PO 250mg qd <=0.12 S</content>
<content>LEVOFLOXACIN PO 500mg qd <=0.12 S</content>
<content>TOBRAMYCIN IV 80mg q8h <=1 S</content>
<content> CEFTRIAXONE IV 1gm q24h <=1 S</content>
<content>CEFTAZIDIME IV 1gm q8h <=1 S</content>
<content>AMPICILLIN/SULBACTAM IV 1.5g q6h 4 S</content>
<content>PIPERACILLIN/TAZOBACTAM IV 2.25 gm q6h <=4 S</content>
<content>AZTREONAM IV 1gm q8h <=1 S</content>
<content>ERTAPENEM IV 1gm qd <=0.5 S</content>
<content>MEROPENEM IV 1 gm q8h <=0.25 S</content>
<content>MEROPENEM IV 500 mg q8h <=0.25 S</content>
<content>TIGECYCLINE IV 50mg q12h <=0.5 S</content>
<content>CEFEPIME IV 1 gm q12h <=1 S</content>
<content>CEFEPIME IV 2 gm q12h <=1 S</content>
<content>EXTD BRD SPCTRM BETA LACTAMASE IV NEGATIVE FOR ESBL</content>
<content></content>
<content>ESCHERICHIA COLI: REACTION</content>
<content>TRIMETHOPRIM/SULFAMETHOXAZOLE IV 160mg TMP & 800mg SMXq6h <=20 S</content>
<content> TRIMETHOPRIM/SULFAMETHOXAZOLE PO Bactrim DS Bid <=20 S</content>
<content>AMPICILLIN IV 500mg q6h >=32 R</content>
<content>AMPICILLIN PO 500mg q6h fasting >=32 R</content>
<content>GENTAMICIN IV 80mg q8h <=1 S</content>
<content>CEFAZOLIN IV 1gm q8h <=4 S</content>
<content>LEVOFLOXACIN IV 500mg qd >=8 R</content>
<content>LEVOFLOXACIN PO 250mg qd >=8 R</content>
<content>LEVOFLOXACIN PO 500mg qd >=8 R</content>
<content>TOBRAMYCIN IV 80mg q8h <=1 S</content>
<content>CEFTRIAXONE IV 1gm q24h <=1 S</content>
<content> CEFTAZIDIME IV 1gm q8h <=1 S</content>
<content>AMPICILLIN/SULBACTAM IV 1.5g q6h 16 I</content>
<content>PIPERACILLIN/TAZOBACTAM IV 2.25 gm q6h <=4 S</content>
<content>AZTREONAM IV 1gm q8h <=1 S</content>
<content>ERTAPENEM IV 1gm qd <=0.5 S</content>
<content>MEROPENEM IV 1 gm q8h <=0.25 S</content>
<content> MEROPENEM IV 500 mg q8h <=0.25 S</content>
<content>TIGECYCLINE IV 50mg q12h <=0.5 S</content>
<content>CEFEPIME IV 1 gm q12h <=1 S</content>
<content>CEFEPIME IV 2 gm q12h <=1 S</content>
<content>EXTD BRD SPCTRM BETA LACTAMASE IV NEGATIVE FOR ESBL</content>
<content></content> Bacteria identified in Urine by Culture Laboratory test result Normal (applies to non-numeric results) [facility] ([facility]) FULL REPORT IN LAB NOTES (eCW and [facility] ). NO GROWTH CLINICAL SIGNIFICANCE 2 OR MORE ORGANISMS ID Date Data Source [id number] 09/17/2020 10:07:00 AM EST [facility] ([facility]) Name Value Range Interpretation Code Description Data Italia rce(s) Supporting Document(s) Thyroid Stimulating Hormone 1.250 uIU/ML 0.358-3.740 Norm al (applies to non- numeric results) [facility] ([facility]) Free T4 0.88 ng/dL 0.76-1.46 Normal (applies to non-numeric resul ts) [facility] ([facility]) ID Date Data Source [id number] 09/17/2020 10:07:00 AM EST [facility] ([facility]) Name Value Range Interpretation Code Description Data Italia rce(s) Supporting Document(s) Cholesterol Level 189 mg/dL Normal (applies to non-numeri c results) [facility] ([facility]) HDL Cholesterol 53 mg/dL Normal (applies to non-numeric results) [facility] ([facility]) Triglycerides Level 107 mg/dL Normal (applies to non-nume jaleel results) [facility] ([facility]) Non-HDL-C 136 mg/dL Normal (applies to non-numeric resul ts) [facility] ([facility]) LDL Cholesterol 115 mg/dL Above high normal [facility] ([facility]) Cholesterol Risk Ratio 3.566 Normal (applies to non-n umeric results) [facility] ID Date Data Source [id number] 09/17/2020 10:07:00 AM EST [facility] ([facility]) Name Value Range Interpretation Code Description Data Italia rce(s) Supporting Document(s) Glucose, Fasting 101 mg/dL 70-100 Above high normal [facility] ([facility]) Blood Urea Nitrogen 23 mg/dL 7-18 [facility] Creatinine For GFR 1.00 mg/dL 0.55-1.30 Normal (applies to non -numeric results) [facility] ([facility]) Glomerular Filtration Rate 58.2 Normal (applies to n on-numeric results) [facility] ([facility]) <content>Units are mL/min/1.73 m2</content>
<content></content>
<content>Chronic Kidney Disease Staging per NKF:</content>
<content></content>
<content>Stage I & II GFR >=60 Normal to Mildly Decreased</content>
<content>Stage III GFR 30- 59 Moderately Decreased</content>
<content>Stage IV GFR 15-29 Severely Decreased</content>
<content>Stage V GFR <15 Very Little GFR Left</content>
<content>ESRD GFR <15 on TERMITE TREATER HELPER</content>
<content></content> Sodium Level 140 meq/L 136-145 Normal (applies to non-numeric res ults) [facility] Potassium Serum 4.4 meq/L 3.5-5.1 Normal (applies to non-numeric results) [facility] ([facility]) Carbon Dioxide Level 25 meq/L 21-32 Normal (applies to non-num adri results) [facility] Chloride Level 109 meq/L 98-107 Above high normal [facility] ([facility]) Anion Gap 6 meq/L 8-16 Below low normal [facility] ( [facility]) Calcium Level 9.3 mg/dL 8.8-10.2 Normal (applies to non-numeric re sults) [facility] ([facility]) Alt/SGPT 39 U/L 12-78 Normal (applies to non-numeric resul ts) [facility] Ast/Sgot 23 U/L 7-37 Normal (applies to non-numeric resul ts) [facility] ([facility]) Alkaline Phosphatase 104 U/L 45-117 Normal (applies to non-num adri results) [facility] ([facility]) Bilirubin,Total 0.5 mg/dL 0.2-1.0 Normal (applies to non-numeric results) [facility] ([facility]) Total Protein 7.7 GM/DL 6.4-8.2 Normal (applies to non-numeric re sults) [facility] Albumin 4.1 GM/DL 3.2-5.2 Normal (applies to non-numeric resul ts) [facility] Albumin/Globulin Ratio 1.1 1.2-2.2 Below low normal [facility] ([facility]) ID Date Data Source [id number] 09/17/2020 10:07:00 AM EST [facility] Name Value Range Interpretation Code Description Data Italia rce(s) Supporting Document(s) White Blood Count 4.4 10 4.0-10.0 Normal (applies to non-numeri c results) [facility] ([facility]) Hemoglobin 12.5 g/dL 12.0-15.5 Normal (applies to non-numeric resul ts) [facility] ([facility]) Red Blood Count 4.36 10 4.00-5.40 Normal (applies to non-numeric results) [facility] ([facility]) Hematocrit 40.7 % 36.0-47.0 Normal (applies to non-numeric resul ts) [facility] ([facility]) Mean Corpuscular Volume 93.3 fl 80.0-96.0 Normal ( applies to non-numeric results) [facility] ([facility]) Mean Corpuscular Hemoglobin 28.7 pg 27.0-33.0 Norm al (applies to non-numeric results) [facility] Mean Corpuscular HGB Conc 30.7 g/dL 32.0-36.5 Below low normal [facility] ([facility]) Red Cell Distribution Width 13.6 % 11.5-14.5 Norm al (applies to non-numeric results) [facility] Platelet Count, Automated 205 10 150-450 Normal (applies to non-numeric results) [facility] ([facility]) Neutrophils % 42.0 % 36.0-66.0 Normal (applies to non-numeric re sults) [facility] ([facility]) Lymph % 48.0 % 24.0-44.0 Above high normal [facility] ([facility]) Baso % 0.5 % 0.0-1.0 Normal (applies to non-numeric resul ts) MEDENT ([facility]) Eos % 1.6 % 0.0-3.0 Normal (applies to non-numeric resul ts) MEDENT ([facility]) Cecil % 7.7 % 2.0-8.0 Normal (applies to non-numeric resul ts) MEDENT ([facility]) Immature Granulocyte % 0.2 % 0-3.0 Normal (applies to non-n umeric results) MEDENT ([facility]) Nucleated Red Blood Cell % 0.0 % 0-0 Normal (applies to n on-numeric results) MEDENT ([facility]) Neutrophils # 1.9 10 1.5-8.5 Normal (applies to non-numeric re sults) MEDENT ([facility]) Lymph # 2.1 10 1.5-5.0 Normal (applies to non-numeric resul ts) MEDENT ([facility]) Cecil # 0.3 10 0.0-0.8 Normal (applies to non-numeric resul ts) MEDENT ([facility]) Eos # 0.1 10 0.0-0.5 Normal (applies to non-numeric resul ts) MEDENT ([facility]) Baso # 0.0 10 0.0-0.2 Normal (applies to non-numeric resul ts) MEDENT ([facility]) ID Date Data Source [id number] 06/13/2020 08:44:00 AM EST MEDENT ([facility]) Name Value Range Interpretation Code Description Data Italia rce(s) Supporting Document(s) Inhouse Leukocytes Laboratory test result MEDENT ([facility]) Inhouse Nitrite Laboratory test result MEDENT ([facility]) Inhouse PH Laboratory test result ME DENT ([facility]) Inhouse Protein Laboratory test result MEDENT ([facility]) Inhouse Urobilinogen Laboratory test result MEDENT ([facility]) Inhouse Specific [place] Laboratory test result MEDENT ([facility]) Inhouse Hemoglobin Laboratory test result MEDENT ([facility]) Inhouse Bilirubin Laboratory test result MEDENT ([facility]) Inhouse Ketones Laboratory test result MEDENT ([facility]) Inhouse Glucose Laboratory test result MEDENT ([facility]) ID Date Data Source [id number] 06/13/2020 08:44:00 AM EST MEDENT ([facility]) Name Value Range Interpretation Code Description Data Italia rce(s) Supporting Document(s) Bacteria identified in Urine by Culture Laboratory test result Normal (applies to non-numeric results) MEDENT ([facility]) <content>FULL REPORT IN LAB NOTES (eCW a nd Medent).</content>
<content></content>
<content>ORGANISM 1: PROTEUS MIRABILIS</content>
<content></content>
<content>COLONY COUNT >100,000</content>
<content></content>
<content></content>
<content> ORGANISM 1: PROTEUS MIRABILIS</content>
<content></content>
<content> PROTEUS MIRABILIS: REACTION</content>
<content>TRIMETHOPRIM/SULFAMETHOXAZOLE IV 160mg TMP & 800mg SMXq6h <=20 S</content>
<content> TRIMETHOPRIM/SULFAMETHOXAZOLE PO Bactrim DS Bid <=20 S</content>
<content>AMPICILLIN IV 500mg q6h <=2 S</content>
<content>AMPICILLIN PO 500mg q6h fasting <=2 S</content>
<content>GENTAMICIN IV 80mg q8h <=1 S</content>
<content>NITROFURANTOIN PO 100mg BID 128 R</content>
<content>CEFAZOLIN IV 1gm q8h <=4 S</content>
<content>LEVOFLOXACIN IV 500mg qd <=0.12 S</content>
<content>LEVOFLOXACIN PO 250mg qd <=0.12 S</content>
<content>LEVOFLOXACIN PO 500mg qd <=0.12 S</content>
<content>TOBRAMYCIN IV 80mg q8h <=1 S</content>
<content> CEFTRIAXONE IV 1gm q24h <=1 S</content>
<content>CEFTAZIDIME IV 1gm q8h <=1 S</content>
<content>AMPICILLIN/SULBACTAM IV 1.5g q6h <=2 S</content>
<content>PIPERACILLIN/TAZOBACTAM IV 2.25 gm q6h <=4 S</content>
<content>AZTREONAM IV 1gm q8h <=1 S</content>
<content>ERTAPENEM IV 1gm qd <=0.5 S</content>
<content> MEROPENEM IV 1 gm q8h <=0.25 S</content>
<content>MEROPENEM IV 500 mg q8h <=0.25 S</content>
<content>TIGECYCLINE IV 50mg q12h 4 R</content>
<content>CEFEPIME IV 1 gm q12h <=1 S</content>
<content>CEFEPIME IV 2 gm q12h <=1 S</content>
<content></content> Procedure Social History Code Duration Value Status Description Data Source(s ) Smoking 04/20/2021 06:19:23 PM EDT Never smoked tobacco (findi ng) completed Never smoked tobacco (finding) RADU (Deoin Garcia MD [facility]) Smoking 09/13/2020 12:00:00 AM EST Patient has never smoked co mpleted Patient has never smoked MEDENT ([facility]) Smoking 08/06/2020 12:00:00 AM EST UNK completed eCW1 ([facility]) Vital Signs ID Date Data Source UNK Name Value Range Interpretation Code Description Data Source(s) Body mass index (BMI) [Ratio] 37.0 kg/m2 37.0 k g/m2 MEDENT ([facility]) Heart rate 59 /min 59 /min MEDENT ([facility]) Systolic blood pressure 126 mm[Hg] 126 mm[Hg] M EDENT ([facility]) Diastolic blood pressure 80 mm[Hg] 80 mm[Hg] MEDENT ([facility]) Body height 60.1 [in_i] 60.1 [in_i] MEDENT ([facility]) 5'0.10" Body weight 190.00 [lb_av] 190.00 [lb_av] MEDEN T ([facility]) Respiratory rate 18 /min 18 /min [facility] Body temperature 97.4 [degF] 97.4 [degF] MEDENT ([facility]) Oxygen saturation in Arterial blood by Pulse oximetry 99 % 99 % [facility] ([facility]) [place] body weight 100 [lb_av] 100 [facility]_av] [facility] Body height 60 [in_i] 60 [in_i] [facility] ([facility]) 5'0" Body weight 194.00 [lb_av] 194.00 [lb_av] MEDEN T ([facility]) Body mass index (BMI) [Ratio] 37.9 kg/m2 37.9 k g/m2 [facility] ([facility]) [place] body weight 100 [lb_av] 100 [lb_av] MEDEN ([facility]) Body weight 87.998 kg 87.998 kg [facility] ([facility]) Body surface area Derived from formula 1.84 m2 1.84 m2 [facility] ([facility]) Systolic blood pressure 126 mm[Hg] 126 mm[Hg] [facility] Body mass index (BMI) [Ratio] 37.6 kg/m2 37.6 k g/m2 [facility] ([facility]) Heart rate 95 /min 95 /min [facility] ([facility]) Body weight 193.25 [lb_av] 193.25 [lb_av] [facility] Respiratory rate 18 /min 18 /min [facility] ( [facility]) Diastolic blood pressure 82 mm[Hg] 82 mm[Hg] [facility] ([facility]) Body height 60.1 [in_i] 60.1 [in_i] [facility] ([facility]) 5'0.10" Body temperature 98.1 [degF] 98.1 [degF] [facility] ([facility]) Oxygen saturation in Arterial blood by Pulse oximetry 96 % 96 % [facility] ([facility]) [place] body weight 100 [lb_av] 100 [lb_av] MEDEN T ([facility]) Body weight 193.00 [lb_av] 193.00 [lb_av] MEDEN T ([facility]) Systolic blood pressure 123 mm[Hg] 123 mm[Hg] M EDENT ([facility]) Diastolic blood pressure 78 mm[Hg] 78 mm[Hg] MEDENT ([facility]) Body weight 87.545 kg 87.545 kg [facility]) Heart rate 68 /min 68 /min [facility]) Body height 60 [in_i] 60 [in_i] [facility] ([facility]) 5'0" Body temperature 96.8 [degF] 96.8 [degF] MEDENT ([facility]) Body mass index (BMI) [Ratio] 37.7 kg/m2 37.7 k g/m2 MEDENT ([facility]) Diastolic blood pressure 84 mm[Hg] 84 mm[Hg] MEDENT ([facility]) Body weight 196.00 [lb_av] 196.00 [lb_av] MEDEN T ([facility]) Respiratory rate 17 /min 17 /min MEDENT ( [facility]) Systolic blood pressure 122 mm[Hg] 122 mm[Hg] M EDENT ([facility]) Body temperature 97.4 [degF] 97.4 [degF] MEDENT ([facility]) Oxygen saturation in Arterial blood by Pulse oximetry 99 % 99 % MEDENT ([facility]) Systolic blood pressure 120 mm[Hg] 120 mm[Hg] M EDENT ([facility]) Diastolic blood pressure 70 mm[Hg] 70 mm[Hg] MEDENT ([facility]) Body height 60.1 [in_i] 60.1 [in_i] MEDENT ([facility]) 5'0.10" Body weight 199.00 [lb_av] 199.00 [lb_av] MEDEN T ([facility]) Body mass index (BMI) [Ratio] 38.7 kg/m2 38.7 k g/m2 MED[facility] ([facility]) Heart rate 69 /min 69 /min MED[facility] ([facility]) Respiratory rate 20 /min 20 /min MEDENT ( [facility]) [place] body weight 100 [lb_av] 100 [lb_av] MEDEN T ([facility]) [place] body weight 100 [lb_av] 100 [lb_av] MEDEN T ([facility]) Body weight 98.885 kg 98.885 kg [facility] ([facility]) Body surface area Derived from formula 1.94 m2 1.94 m2 [facility] ([facility]) Body mass index (BMI) [Ratio] 42.6 kg/m2 42.6 k g/m2 [facility] ([facility]) Body height 60 [in_i] 60 [in_i] [facility] ([facility]) 5'0" Body weight 218.00 [lb_av] 218.00 [lb_av] [facility] Oxygen saturation in Arterial blood by Pulse oximetry 97 % 97 % [facility] ([facility]) [place] body weight 100 [lb_av] 100 [lb_av] MEDEN T ([facility]) Systolic blood pressure 110 mm[Hg] 110 mm[Hg] [facility] Diastolic blood pressure 66 mm[Hg] 66 mm[Hg] [facility] ([facility]) Body height 60.1 [in_i] 60.1 [in_i] [facility] ([facility]) 5'0.10" Body weight 201.25 [lb_av] 201.25 [lb_av] MEDEN T ([facility]) Body mass index (BMI) [Ratio] 39.2 kg/m2 39.2 k g/m2 [facility] ([facility]) Heart rate 86 /min 86 /min [facility] ([facility]) Respiratory rate 14 /min 14 /min [facility] ( [facility]) Body temperature 98.8 [degF] 98.8 [degF] [facility] ([facility]) Heart rate 73 /min 73 /min [facility] ([facility]) Oxygen saturation in Arterial blood by Pulse oximetry 98 % 98 % [facility] ([facility]) [place] body weight 100 [lb_av] 100 [lb_av] MEDEN T ([facility]) Systolic blood pressure 120 mm[Hg] 120 mm[Hg] M EDENT ([facility]) Diastolic blood pressure 78 mm[Hg] 78 mm[Hg] MEDENT ([facility]) Body height 60.1 [in_i] 60.1 [in_i] MEDENT ([facility]) 5'0.10" Body weight 212.12 [lb_av] 212.12 [lb_av] MEDEN T ([facility]) Body mass index (BMI) [Ratio] 41.3 kg/m2 41.3 k g/m2 MEDENT ([facility]) Respiratory rate 14 /min 14 /min [facility] ( [facility]) Body temperature 97.8 [degF] 97.8 [degF] MEDENT ([facility]) Body mass index (BMI) [Ratio] 42.6 kg/m2 42.6 k g/m2 [facility] ([facility]) Body height 60 [in_i] 60 [in_i] [facility] 5'0" Body weight 218.00 [lb_av] 218.00 [lb_av] MEDEN T ([facility]) [place] body weight 100 [lb_av] 100 [lb_av] MEDEN T ([facility]) Body weight 98.885 kg 98.885 kg [facility] ([facility]) Body surface area Derived from formula 1.94 m2 1.94 m2 [facility] ([facility]) Body height 60 [in_i] 60 [in_i] [facility] ([facility]) 5'0" [place] body weight 100 [lb_av] 100 [lb_av] MEDEN T ([facility]) Body weight 98.885 kg 98.885 kg [facility] ([facility]) Body surface area Derived from formula 1.94 m2 1.94 m2 [facility] ([facility]) Body weight 218.00 [lb_av] 218.00 [lb_av] MEDEN T ([facility]) Body mass index (BMI) [Ratio] 42.6 kg/m2 42.6 k g/m2 [facility] ([facility]) Heart rate 88 /min 88 /min [facility] Systolic blood pressure 132 mm[Hg] 132 mm[Hg] [facility] Diastolic blood pressure 84 mm[Hg] 84 mm[Hg] [facility] Body height 60.1 [in_i] 60.1 [in_i] [facility] 5'0.10" Body weight 228.00 [lb_av] 228.00 [lb_av] MEDEN T ([facility]) Respiratory rate 18 /min 18 /min MEDENT ( [facility]) Body temperature 97.8 [degF] 97.8 [degF] [facility] Oxygen saturation in Arterial blood by Pulse oximetry 97 % 97 % [facility] ([facility]) [place] body weight 100 [lb_av] 100 [lb_av] MEDEN T ([facility]) Body mass index (BMI) [Ratio] 44.4 kg/m2 44.4 k g/m2 [facility] ([facility]) Body temperature 97.5 [degF] 97.5 [degF] MEDENT ([facility] ) Body height 60 [in_i] 60 [in_i] [facility] ([facility] ) 5'0" Body mass index (BMI) [Ratio] 43.2 kg/m2 43.2 k g/m2 MEDENT ([facility] ) Body weight 221.25 [lb_av] 221.25 [lb_av] MEDEN T ([facility] ) Systolic blood pressure 128 mm[Hg] 128 mm[Hg] [facility] Body weight 226.00 [lb_av] 226.00 [lb_av] MEDEN T ([facility]) Body mass index (BMI) [Ratio] 44.0 kg/m2 44.0 k g/m2 [facility] Heart rate 92 /min 92 /min [facility] Respiratory rate 18 /min 18 /min MEDENT ( [facility]) Body temperature 97.7 [degF] 97.7 [degF] MEDENT ([facility]) Oxygen saturation in Arterial blood by Pulse oximetry 97 % 97 % [facility] [place] body weight 100 [lb_av] 100 [lb_av] MEDEN T ([facility]) Body height 60.1 [in_i] 60.1 [in_i] [facility] ([facility]) 5'0.10" Diastolic blood pressure 78 mm[Hg] 78 mm[Hg] [facility] ([facility]) Body height 60 [in_i] 60 [in_i] [facility] ([facility], ) 5'0" Body weight 225.00 [lb_av] 225.00 [lb_av] MEDEN T ([facility]) Body mass index (BMI) [Ratio] 43.9 kg/m2 43.9 k g/m2 [facility] ([facility]) [place] body weight 100 [lb_av] 100 [lb_av] MEDEN T ([facility]) Body weight 102.060 kg 102.060 kg [facility] ([facility]) Body surface area Derived from formula 1.96 m2 1.96 m2 [facility] ([facility]) Diastolic blood pressure 82 mm[Hg] 82 mm[Hg] [facility] ([facility]) Systolic blood pressure 132 mm[Hg] 132 mm[Hg] [facility] Body height 60.1 [in_i] 60.1 [in_i] [facility] 5'0.10" Body weight 225.00 [lb_av] 225.00 [lb_av] MEDEN T ([facility]) Body mass index (BMI) [Ratio] 43.8 kg/m2 43.8 k g/m2 [facility] Heart rate 78 /min 78 /min [facility] ([facility]) Respiratory rate 20 /min 20 /min [facility] ( [facility]) Body temperature 97.8 [degF] 97.8 [degF] MEDENT ([facility]) Oxygen saturation in Arterial blood by Pulse oximetry 98 % 98 % [facility] [place] body weight 100 [lb_av] 100 [lb_av] MEDEN T ([facility]) Body weight 221.4 [lb_av] 221.4 [lb_av] eCW1 ([facility]) Body weight 100.43 kg 100.43 kg eCW1 ([facility]) Body height 60 [in_i] 60 [in_i] eCW1 ([facility]) Body mass index (BMI) [Ratio] 43.23 kg/m2 43.23 kg/m2 eCW1 ([facility]) Systolic blood pressure 118 mm[Hg] 118 mm[Hg] e CW1 ([facility]) Diastolic blood pressure 72 mm[Hg] 72 mm[Hg] eCW1 ([facility]) Body height 60 [in_i] 60 [in_i] GIRISH ([facility], ) 5'0" Body weight 220.00 [lb_av] 220.00 [lb_av] MEDEN T ([facility], ) Body mass index (BMI) [Ratio] 43.0 kg/m2 43.0 k g/m2 [facility] ([facility], ) [place] body weight 100 [lb_av] 100 [[facility]_av] [facility] Body weight 99.792 kg 99.792 kg [facility] ([facility], ) Body surface area Derived from formula 1.94 m2 1.94 m2 [facility] [place] body weight 100 [lb_av] 100 [lb_av] MEDEN T ([facility]) Body weight 221.12 [lb_av] 221.12 [lb_av] MEDEN T ([facility]) Body mass index (BMI) [Ratio] 43.0 kg/m2 43.0 k g/m2 [facility] ([facility]) Heart rate 81 /min 81 /min [facility] Systolic blood pressure 126 mm[Hg] 126 mm[Hg] M EDSEVEN ([facility]) Diastolic blood pressure 78 mm[Hg] 78 mm[Hg] [facility] ([facility]) Body height 60.1 [in_i] 60.1 [in_i] [facility] ([facility]) 5'0.10" Respiratory rate 16 /min 16 /min [facility] ( [facility]) Body temperature 98.0 [degF] 98.0 [degF] [facility] ([facility]) Oxygen saturation in Arterial blood by Pulse oximetry 97.5 % 97.5 % [facility] ([facility]) Body height 60 [in_i] 60 [in_i] [facility] ([facility]) 5'0" Body weight 220.00 [lb_av] 220.00 [lb_av] [facility] Body mass index (BMI) [Ratio] 43.0 kg/m2 43.0 k g/m2 [facility] ([facility]) [place] body weight 100 [lb_av] 100 [lb_av] [facility] Body weight 99.792 kg 99.792 kg [facility] ([facility]) Body surface area Derived from formula 1.94 m2 1.94 m2 [facility] ([facility]) Patient Treatment Plan of Care Planned Activity Planned Date Details Description Data Source (s) prednisolone acetate 10 MG/ML Ophthalmic Suspension 07/13/20 20 12:00:00 AM [facility] (Deion Garcia MD [facility])
[2021-05-20] MEDS ORDERED: propofoL 500 MG/50 ML VIAL As Ordered ONE (08:02)
[2021-05-20] MEDS ORDERED: LIDOCAINE 2% 100MG/5ML SDV (FOR ANES.) As Ordered ONE (08:02)
[2021-05-20] MEDS ORDERED: fentaNYL 100 MCG/2 ML INJECTION (J3010) As Ordered ONE (08:03)
--- NOTE | 2021-05-20 09:22 | ROOR ---
Patient Name: Alix Florian Procedure Date: 05/20/2021 9:03 AM Date of : 1950 Age: 70 Room: [facility] Gender: Female Note Status: Finalized Procedure: Upper GI endoscopy + Balloon Dilatation + Biopsies Indications: Dysphagia, Heartburn Providers: Jose Daniel Bey MD Referring MD: Hollie CLIFFORD DO Requestomari Provider: Medicines: Monitored Anesthesia Care Complications: No immediate complications. Procedure: Pre-Anesthesia Assessment: - The heart rate, respiratory rate, oxygen saturations, blood pressure, adequacy of pulmonary ventilation, and response to care were monitored throughout the procedure. The Endoscope was introduced through the mouth, and advanced to the second part of duodenum. The upper GI endoscopy was accomplished without difficulty. The patient tolerated the procedure well. Findings: The Z-line was irregular and was found 40 cm from the incisors. Multiple biopsies were obtained with cold forceps for evaluation to rule out Rizo's Esophagus randomly at the gastroesophageal junction. A TTS dilator was passed through the scope. Dilation with a 15-16.5-18 mm balloon dilator was performed to 18 mm in the entire esophagus. Multiple small pedunculated and sessile fundic gland polyps with no stigmata of recent bleeding were found on the greater curvature of the stomach. Biopsies were taken with a cold forceps for histology. Patchy mildly erythematous mucosa without bleeding was found in the gastric antrum. Biopsies were taken with a cold forceps for Helicobacter pylori testing. The exam was otherwise without abnormality. Impression: - Z-line irregular, 40 cm from the incisors. - Multiple fundic gland polyps. Biopsied. - Erythematous mucosa in the antrum. Biopsied. - The examination was otherwise normal. - Multiple biopsies were obtained at the gastroesophageal junction. - Dilation performed in the entire esophagus. - The examination was otherwise normal. Recommendation: - Patient has a contact number available for emergencies. The signs and symptoms of potential delayed complications were discussed with the patient. Return to normal activities tomorrow. Written discharge instructions were provided to the patient. - High fiber diet. - Discharge patient to home. - Follow an antireflux regimen. - Continue present medications. - Await pathology results. - Telephone GI clinic for pathology results in 1 week. - Return to referring physician. - The findings and recommendations were discussed with the patient. Procedure Code(s): --- Professional --- 29498, Esophagogastroduodenoscopy, flexible, transoral; with transendoscopic balloon dilation of esophagus (less than 30 mm diameter) Diagnosis Code(s): --- Professional --- K22.8, Other specified diseases of esophagus K31.7, Polyp of stomach and duodenum K31.89, Other diseases of stomach and duodenum R13.10, Dysphagia, unspecified R12, Heartburn CPT copyright 2019 [employer]. All rights reserved. The codes documented in this report are preliminary and upon glass vial filler review may be revised to meet current compliance requirements. Jose Daniel Bey MD Jose Daniel Bey MD 05/20/2021 9:22:01 AM Electronically signed by Jose Daniel Bey MD Number of Addenda: 0 Note Initiated On: 05/20/2021 9:03 AM Estimated Blood Loss: Estimated blood loss: none.
--- NOTE | 2021-05-20 09:45 | ROOR ---
Patient Name: Alix Florian Procedure Date: 05/20/2021 9:03 AM Date of : 1950 Age: 70 Room: [facility] Gender: Female Note Status: Finalized Procedure: Total Colonoscopy to Cecum + Cold Snare + Biopsy Polypectomy Indications: Screening for colorectal malignant neoplasm Providers: Jose Daniel Bey MD Referring MD: Hollie CLIFFORD DO Requesting Provider: Medicines: Monitored Anesthesia Care Complications: No immediate complications. Procedure: Pre-Anesthesia Assessment: - The heart rate, respiratory rate, oxygen saturations, blood pressure, adequacy of pulmonary ventilation, and response to care were monitored throughout the procedure. The Colonoscope was introduced through the anus and advanced to the cecum, identified by appendiceal orifice and ileocecal valve. The colonoscopy was performed without difficulty. The patient tolerated the procedure well. The quality of the bowel preparation was excellent. Findings: The perianal and digital rectal examinations were normal. Non-bleeding internal hemorrhoids were found during retroflexion. The hemorrhoids were small and Grade I (internal hemorrhoids that do not prolapse). Scattered small-mouthed diverticula were found in the recto-sigmoid colon, sigmoid colon and descending colon. A small polyp was found at 60 cm proximal to the anus. The polyp was sessile. The polyp was removed with a jumbo cold forceps. Resection and retrieval were complete. Two sessile polyps were found in the cecum. The polyps were small in size. These polyps were removed with a cold snare. Resection and retrieval were complete. The exam was otherwise without abnormality on direct and retroflexion views. Impression: - Non-bleeding internal hemorrhoids. - Diverticulosis in the recto-sigmoid colon, in the sigmoid colon and in the descending colon. - One small polyp at 60 cm proximal to the anus, removed with a jumbo cold forceps. Resected and retrieved. - Two small polyps in the cecum, removed with a cold snare. Resected and retrieved. - The examination was otherwise normal on direct and retroflexion views. - The exam was otherwise normal to the cecum. Recommendation: - Patient has a contact number available for emergencies. The signs and symptoms of potential delayed complications were discussed with the patient. Return to normal activities tomorrow. Written discharge instructions were provided to the patient. - High fiber diet. - Discharge patient to home. - Continue present medications. - Await pathology results. - Telephone GI clinic for pathology results in 1 week. - Return to referring physician. - Repeat colonoscopy in 5 years for surveillance based on pathology results. - The findings and recommendations were discussed with the patient. Procedure Code(s): --- Professional --- 79319, Colonoscopy, flexible; with removal of tumor(s), polyp(s), or other lesion(s) by snare technique 68066, 59, Colonoscopy, flexible; with biopsy, single or multiple Diagnosis Code(s): --- Professional --- K63.5, Polyp of colon Z12.11, Encounter for screening for malignant neoplasm of colon K64.0, First degree hemorrhoids K57.30, Diverticulosis of large intestine without perforation or abscess without bleeding CPT copyright 2019 [employer]. All rights reserved. The codes documented in this report are preliminary and upon milk inspector review may be revised to meet current compliance requirements. Jose Daniel Bey MD Jose Daniel Bey MD 05/20/2021 9:44:54 AM Electronically signed by Jose Daniel Bey MD Number of Addenda: 0 Note Initiated On: 05/20/2021 9:03 AM Estimated Blood Loss: Estimated blood loss: none.
[2021-05-20 10:11] VITALS: BP 118/62
== END 2021-05-20 10:16 | disposition home or self-care (01) ==
LOC: M OPP 07:49
PROVIDERS: ATTEND Internal Medicine Gastroenterology
DX: Z12.11 Encounter for screening for malignant neoplasm of colon (principal); D12.0 Benign neoplasm of cecum; D12.6 Benign neoplasm of colon, unspecified; K57.30 Diverticulosis of large intestine without perforation or abscess without bleeding; K64.8 Other hemorrhoids; K22.89 Other specified disease of esophagus; K31.7 Polyp of stomach and duodenum; K31.89 Other diseases of stomach and duodenum; R13.10 Dysphagia, unspecified; R12 Heartburn; Z79.899 Other long term (current) drug therapy; Z88.0 Allergy status to penicillin; Z88.1 Allergy status to other antibiotic agents; Z88.5 Allergy status to narcotic agent; Z88.8 Allergy status to other drugs, medicaments and biological substances; Z91.041 Radiographic dye allergy status
CPT/HCPCS: 43239; 43249; 45380; 45385; 88305; J3010

== ENCOUNTER → 2021-06-10 | Outpatient (REF) | payer MEDICARE ==
[~2021-06-10] MED LIST changes: -NS 1,000 ML IV ONE
== END ==
LOC: M LAB REF 17:13
PROVIDERS: ATTEND Physician Assistant
DX: N39.0 Urinary tract infection, site not specified (principal)

== ENCOUNTER → 2021-06-28 | Outpatient (CLI) | payer MEDICARE ==
--- NOTE | 2021-06-28 12:17 | DEXAMM ---
INDICATION: OSTEO SCREEN. COMPARISON: 06/27/2019 as well as other prior exams. TECHNIQUE: Bone density was measured using dual-energy x-ray absorptiometry (DEXA). FINDINGS: AP SPINE L1-L4 BMD 1.132 g/cm2 Young Adult T-Score -0.5 Age Matched Z-Score 1.2. LT FEMUR, TOTAL BMD 0.863 g/cm2 Young Adult T-Score -1.1 Age Matched Z-Score 0.5. LT NECK BMD 0.800 g/cm2 Young Adult T-Score -1.7 Age Matched Z-Score 0.1. RT FEMUR, TOTAL BMD 0.840 g/cm2 Young Adult T-Score -1.3 Age Matched Z-Score 0.3. RT NECK BMD 0.824 g/cm2 Young Adult T-Score -1.5 Age Matched Z-Score 0.3. IMPRESSION: There is normal bone density of the spine. There is low bone density of the left hip. There is low bone density of the right hip. The density of the spine has increased 1.7% since the initial exam on 04/04/2003. The density of the spine decreased 2.8% since most recent exam on 06/27/2019. The density of the left hip has increased 0.9% since initial exam on 04/04/2003. The density of the left hip has decreased 5.1% since most recent exam on 06/27/2019. The density of the right hip has decreased 3.2% since the initial exam on 04/04/2003. The density of the right hip has decreased 4.7% since the most recent exam on 06/27/2019. FOLLOW-UP: Recommendation for the next bone density exam: 2 years. <Electronically signed by Mark Chamberlain > 06/28/21 [id number]
== END ==
LOC: M WHC 09:42
PROVIDERS: ATTEND Physician Assistant
DX: M85.851 Other specified disorders of bone density and structure, right thigh (principal); M85.852 Other specified disorders of bone density and structure, left thigh; Z13.820 Encounter for screening for osteoporosis

== ENCOUNTER → 2021-08-14 | Outpatient (CLI) | payer MEDICARE | LOC: M WHC 14:37 | PROVIDERS: ATTEND Physician Assistant | DX: Z12.31 Encounter for screening mammogram for malignant neoplasm of breast (principal); Z78.0 Asymptomatic menopausal state ==

== ENCOUNTER → 2021-11-05 | Outpatient (REF) | payer MEDICARE ==
[~2021-11-05] MED LIST changes: -D31000TA2 PO; +VITA100093 PO
== END ==
LOC: M LAB REF 17:05
PROVIDERS: ATTEND Physician Assistant
DX: N39.0 Urinary tract infection, site not specified (principal)

== ENCOUNTER → 2022-01-01 | Outpatient (REF) | payer OTHER | LOC: M LAB REF 17:30 | PROVIDERS: ATTEND Otolaryngology | DX: 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, including tongue (principal) ==

== ENCOUNTER → 2022-01-15 | Outpatient (CLI) | payer MEDICARE ==
[2022-01-15 12:06] LABS: HEMATOCRIT 39.4 % (36.0-47.0); HEMOGLOBIN 12.4 g/dl (12.0-15.5); LYMPH % 50.7 % (24.0-44.0); MEAN CORPUSCULAR HEMOGLOBIN 29.3 pg (27.0-33.0); MEAN CORPUSCULAR HGB CONC 31.5 g/dl (32.0-36.5); MEAN CORPUSCULAR VOLUME 93.1 fl (80.0-96.0); NEUTROPHILS % 36.7 % (36.0-66.0); PLATELET COUNT, AUTOMATED 189 10^3/uL (150-450); RED BLOOD COUNT 4.23 10^6/uL (4.00-5.40); WHITE BLOOD COUNT 3.6 10^3/uL (4.0-10.0)
[2022-01-15 12:07] LABS: BASO % 0.8 % (0.0-1.0); EOS # 0.1 10^3/uL (0.0-0.5); EOS % 2.5 % (0.0-3.0); LYMPH # 1.8 10^3/uL (1.5-5.0); MONO # 0.3 10^3/uL (0.0-0.8); NEUTROPHILS # 1.3 10^3/uL (1.5-8.5)
[2022-01-15 12:35] LABS: ALBUMIN 3.9 GM/DL (3.2-5.2); ALT/SGPT 21 U/L (12-78); BILIRUBIN,TOTAL 0.6 MG/DL (0.2-1.0); BLOOD UREA NITROGEN 13 MG/DL (7-18); CALCIUM LEVEL 9.6 MG/DL (8.8-10.2); CARBON DIOXIDE LEVEL 24 MEQ/L (21-32); CHLORIDE LEVEL 112 MEQ/L (98-107); CHOLESTEROL LEVEL 171 MG/DL (<200); CHOLESTEROL RISK RATIO 3.886 (<5); CREATININE FOR GFR 0.93 MG/DL (0.55-1.30); GLOMERULAR FILTRATION RATE > 60.0 (>39); GLUCOSE, FASTING 97 MG/DL (70-100); HDL CHOLESTEROL 44 MG/DL (>40); LDL CHOLESTEROL 92 MG/DL (<100); NON-HDL-C 127 MG/DL; POTASSIUM SERUM 4.1 MEQ/L (3.5-5.1); SODIUM LEVEL 143 MEQ/L (136-145); TOTAL PROTEIN 7.3 GM/DL (6.4-8.2); TRIGLYCERIDES LEVEL 175 MG/DL (<150)
[2022-01-15 14:21] LABS: HEMOGLOBIN A1c 4.8 %
== END ==
LOC: M LAB 11:21
PROVIDERS: ATTEND Physician Assistant
DX: E78.00 Pure hypercholesterolemia, unspecified (principal); R73.01 Impaired fasting glucose

== ENCOUNTER → 2022-01-15 | Outpatient (CLI) | payer MEDICARE ==
[~2022-01-15] MED LIST changes: +PROHANCE 279.3MG/ML 15ML VIAL As Ordered ONE; +PROHANCE 279.3MG/ML 5ML VIAL As Ordered ONE
[2022-01-15 12:31] LABS: BLOOD UREA NITROGEN 13 MG/DL (7-18); CREATININE FOR GFR 0.91 MG/DL (0.55-1.30); GLOMERULAR FILTRATION RATE > 60.0 (>39)
== END ==
LOC: M RAD 11:26
PROVIDERS: ATTEND Otolaryngology
DX: C02.1 Malignant neoplasm of border of tongue (principal); E78.00 Pure hypercholesterolemia, unspecified; R73.01 Impaired fasting glucose
CPT/HCPCS: 36415; 70543; 80053; 80061; 83036; 85025; A9576

== ENCOUNTER → 2022-01-29 | Outpatient (CLI) | payer MEDICARE ==
[~2022-01-29] MED LIST changes: -PROHANCE 279.3MG/ML 15ML VIAL As Ordered ONE; -PROHANCE 279.3MG/ML 5ML VIAL As Ordered ONE
== END ==
LOC: M ONCR 14:56
PROVIDERS: ATTEND General Practice
DX: C02.8 Malignant neoplasm of overlapping sites of tongue (principal); R53.83 Other fatigue; Z91.041 Radiographic dye allergy status; Z88.0 Allergy status to penicillin; Z88.1 Allergy status to other antibiotic agents; Z88.2 Allergy status to sulfonamides; Z88.5 Allergy status to narcotic agent; Z88.6 Allergy status to analgesic agent; Z88.8 Allergy status to other drugs, medicaments and biological substances; Z88.4 Allergy status to anesthetic agent; Z91.018 Allergy to other foods; Z79.899 Other long term (current) drug therapy; Z80.0 Family history of malignant neoplasm of digestive organs

== ENCOUNTER → 2022-02-17 | Outpatient (CLI) | payer MEDICARE | LOC: M PLARAD 08:54 | PROVIDERS: ATTEND Otolaryngology | DX: C02.1 Malignant neoplasm of border of tongue (principal); I70.0 Atherosclerosis of aorta; I25.10 Atherosclerotic heart disease of native coronary artery without angina pectoris; K76.0 Fatty (change of) liver, not elsewhere classified; K80.20 Calculus of gallbladder without cholecystitis without obstruction | CPT/HCPCS: 78815; A9552 ==

== ENCOUNTER 2022-02-19 08:56 | Outpatient (RCR) | payer MEDICARE | END 2022-02-23 | LOC: M ST 08:56 | PROVIDERS: ATTEND Otolaryngology | DX: C02.1 Malignant neoplasm of border of tongue (principal) ==

== ENCOUNTER → 2022-03-12 | Outpatient (CLI) | payer MEDICARE ==
[~2022-03-12] MED LIST changes: +ALEV220T22 PO; +APAP500T10 PO; +PANT40TA29 PO
[2022-03-12 09:56] LABS: BASO % 0.5 % (0.0-1.0); EOS # 0.2 10^3/uL (0.0-0.5); EOS % 3.4 % (0.0-3.0); HEMATOCRIT 39.4 % (36.0-47.0); HEMOGLOBIN 12.4 g/dl (12.0-15.5); LYMPH # 2.1 10^3/uL (1.5-5.0); LYMPH % 46.8 % (24.0-44.0); MEAN CORPUSCULAR HGB CONC 31.5 g/dl (32.0-36.5); MEAN CORPUSCULAR VOLUME 95.2 fl (80.0-96.0); MONO # 0.4 10^3/uL (0.0-0.8); NEUTROPHILS # 1.7 10^3/uL (1.5-8.5); NEUTROPHILS % 39.1 % (36.0-66.0); PLATELET COUNT, AUTOMATED 189 10^3/uL (150-450); RED BLOOD COUNT 4.14 10^6/uL (4.00-5.40); WHITE BLOOD COUNT 4.4 10^3/uL (4.0-10.0)
[2022-03-12 10:36] LABS: ALBUMIN 4.1 GM/DL (3.2-5.2); BILIRUBIN,TOTAL 0.5 MG/DL (0.2-1.0); CALCIUM LEVEL 9.7 MG/DL (8.8-10.2); GLOMERULAR FILTRATION RATE 57.9 (>39); POTASSIUM SERUM 4.4 MEQ/L (3.5-5.1); TOTAL PROTEIN 7.5 GM/DL (6.4-8.2)
[2022-03-12 10:46] LABS: APPEARANCE, URINE MANUAL CLEAR (CLEAR); BILIRUBIN, URINE MANUAL NEGATIVE (NEGATIVE); COLOR, URINE MANUAL YELLOW (YELLOW); GLUCOSE, URINE (UA) MANUAL NEGATIVE (NEGATIVE); KETONE, URINE MANUAL NEGATIVE (NEGATIVE); LEUKOCYTE ESTERASE, URINE MAN NEGATIVE (NEGATIVE); NITRITE, URINE MANUAL NEGATIVE (NEGATIVE); PROTEIN, URINE MANUAL NEGATIVE (NEGATIVE); UROBILINOGEN, URINE MANUAL NORMAL (NORMAL)
[2022-03-12 10:47] LABS: BLOOD URINE MANUAL NEGATIVE (NEGATIVE)
== END ==
LOC: M LAB 08:42
PROVIDERS: ATTEND Physician Assistant
DX: Z01.818 Encounter for other preprocedural examination (principal); C02.1 Malignant neoplasm of border of tongue; R53.83 Other fatigue

== ENCOUNTER → 2022-03-23 | Outpatient (CLI) | payer MEDICARE | LOC: M LABSMTC 11:29 | PROVIDERS: ATTEND Anesthesiology | DX: Z01.812 Encounter for preprocedural laboratory examination (principal); Z20.822 Contact with and (suspected) exposure to COVID-19 ==

== ENCOUNTER 2022-03-26 10:00 | Observation (INO) | payer MEDICARE ==
[~2022-03-26] VITALS: Ht 152.4 cm; Wt 92.4 kg
[~2022-03-26 10:00] MED LIST changes: -EQL0.65S; +EQL0.65S NARES; -FLON1SPR; +FLON1SPR NARES; +dexameTHASONE 4 MG/ML 1ML VIAL (J1100 PER 1MG) IV ONE
[2022-03-26] MEDS ORDERED: HYDR-4571 PO (10:53)
[2022-03-26] MEDS ORDERED: LR 1,000 ML IV SCH ×3 (10:55→17:30)
[2022-03-26] MEDS ORDERED: LIDOCAINE 2% 100MG/5ML SDV (FOR ANES.) As Ordered ONE (11:04)
[2022-03-26] MEDS ORDERED: propofoL 200 MG/20 ML VIAL As Ordered ONE (11:04)
[2022-03-26] MEDS ORDERED: HYDROmorphone HCL 2MG/ML 1ML VIAL As Ordered ONE (11:05)
[2022-03-26] MEDS ORDERED: fentaNYL 100 MCG/2 ML INJECTION As Ordered ONE (11:05)
[2022-03-26] MEDS ORDERED: REMIFENTANIL 1MG 3ML VIAL As Ordered ONE (11:05)
[2022-03-26] MEDS ORDERED: ONDANSETRON 4MG 2ML VIAL As Ordered ONE (11:06)
[2022-03-26] MEDS ORDERED: MIDAZOLAM INJ 2MG/2ML VIAL (J2250 PER 1MG) As Ordered ONE (11:06)
[2022-03-26] MEDS ORDERED: ROCURONIUM BROMIDE 50 MG/5 ML VIAL As Ordered ONE (11:06)
[2022-03-26] MEDS ORDERED: dexameTHASONE 4 MG/ML 1ML VIAL (J1100 PER 1MG) As Ordered ONE (11:06)
[2022-03-26] MEDS ORDERED: FAMO20TA PO (11:47)
[2022-03-26] MEDS ORDERED: ALPR0.5T3 PO (11:47)
[2022-03-26] MEDS ORDERED: OXYMETAZOLINE 0.05% NASAL SPRAY (AFRIN) As Ordered ONE (11:50)
[2022-03-26] MEDS ORDERED: HOME MED LIST COMPLETE! XX SCH (11:50)
[2022-03-26] MEDS ORDERED: BACITRACIN OINTMENT 30GM TUBE As Ordered ONE (11:52)
[2022-03-26] MEDS ORDERED: LIDOCAINE W/EPINEPHRINE 1% 20ML VIAL As Ordered ONE (11:52)
[2022-03-26] MEDS ORDERED: SUGAMMADEX SODIUM 500 MG/5 ML VIAL (BRIDION) As Ordered ONE (13:35)
[2022-03-26] MEDS ORDERED: ACETAMINOPHEN 1000MG 100ML IV BTL (OFIRMEV) (J0131 PER 10MG) As Ordered ONE (13:36)
[2022-03-26] MEDS ORDERED: ePHEDrine SULFATE 25 MG/5 ML(5MG/ML) SYRINGE As Ordered ONE (15:02)
[2022-03-26] MEDS ORDERED: ONDANSETRON 4MG 2ML VIAL IV PRN (17:05)
[2022-03-26] MEDS ORDERED: METOCLOPRAMIDE INJ 10MG/2ML VIAL (J2765 PER 1) IV PRN (17:05)
[2022-03-26] MEDS: fentaNYL 100 MCG/2 ML INJECTION IV PRN ×4 (17:20→17:38)
[2022-03-26] MEDS: HYDROMORPHONE HCL 0.5 MG/ 0.5 ML SYRINGE (J1170 PER 1) IV PRN ×3 (17:42→20:49)
[2022-03-26] MEDS ORDERED: FLUTICASONE PROP 0.05% NASAL SPRAY 16 GM (FLONASE) NARES PRN (18:45)
[2022-03-26 19:00] VITALS: O2SAT 93
[2022-03-26 19:01] LABS: INR 1.15; PROTHROMBIN TIME 15.1 SECONDS (12.7-14.5)
[2022-03-26 19:26] LABS: ALBUMIN 3.7 GM/DL (3.2-5.2); BILIRUBIN,TOTAL 0.5 MG/DL (0.2-1.0); CALCIUM LEVEL 8.9 MG/DL (8.8-10.2); CREATININE FOR GFR 0.98 MG/DL (0.55-1.30); GLOMERULAR FILTRATION RATE 59.2 (>39); TOTAL PROTEIN 7.4 GM/DL (6.4-8.2)
[2022-03-26 20:00] VITALS: BP 133/88; O2SAT 95
[2022-03-26] MEDS: LR 1,000 ML IV SCH (20:45)
[2022-03-26] MEDS: KETOROLAC 30 MG/ML 1ML VIAL IV SCH (20:46)
[2022-03-26] MEDS: dexameTHASONE 4 MG/ML 1ML VIAL (J1100 PER 1MG) IV SCH (20:46)
[2022-03-26] MEDS: BACITRACIN OINTMENT 30GM TUBE TOP SCH (20:47)
[2022-03-26 21:00] VITALS: O2SAT 95
[2022-03-26 22:00] VITALS: O2SAT 94
[2022-03-26 23:00] VITALS: O2SAT 94
[2022-03-27] VITALS (18 sets, daily range): BP systolic 120–138; BP diastolic 59–79; O2SAT 91–95
[2022-03-27 02:06] LABS: BASO % 0.1 % (0.0-1.0); HEMATOCRIT 36.9 % (36.0-47.0); HEMOGLOBIN 11.7 g/dl (12.0-15.5); LYMPH # 0.6 10^3/uL (1.5-5.0); LYMPH % 6.9 % (24.0-44.0); MEAN CORPUSCULAR HEMOGLOBIN 29.7 pg (27.0-33.0); MEAN CORPUSCULAR HGB CONC 31.7 g/dl (32.0-36.5); MEAN CORPUSCULAR VOLUME 93.7 fl (80.0-96.0); MONO # 0.2 10^3/uL (0.0-0.8); NEUTROPHILS % 90.4 % (36.0-66.0); PLATELET COUNT, AUTOMATED 218 10^3/uL (150-450); RED BLOOD COUNT 3.94 10^6/uL (4.00-5.40); WHITE BLOOD COUNT 8.8 10^3/uL (4.0-10.0)
[2022-03-27] MEDS: HYDROMORPHONE HCL 0.5 MG/ 0.5 ML SYRINGE (J1170 PER 1) IV PRN ×5 (03:18→17:51)
[2022-03-27] MEDS: KETOROLAC 30 MG/ML 1ML VIAL IV SCH ×3 (03:18→20:37)
[2022-03-27] MEDS: dexameTHASONE 4 MG/ML 1ML VIAL (J1100 PER 1MG) IV SCH ×3 (03:19→20:37)
[2022-03-27 04:43] LABS: ALBUMIN 3.5 GM/DL (3.2-5.2); ALT/SGPT 16 U/L (12-78); BILIRUBIN,TOTAL 0.4 MG/DL (0.2-1.0); BLOOD UREA NITROGEN 12 MG/DL (7-18); CALCIUM LEVEL 8.9 MG/DL (8.8-10.2); CARBON DIOXIDE LEVEL 23 MEQ/L (21-32); CHLORIDE LEVEL 108 MEQ/L (98-107); CREATININE FOR GFR 0.88 MG/DL (0.55-1.30); GLOMERULAR FILTRATION RATE > 60.0 (>39); GLUCOSE, FASTING 146 MG/DL (70-100); POTASSIUM SERUM 4.2 MEQ/L (3.5-5.1); SODIUM LEVEL 139 MEQ/L (136-145); TOTAL PROTEIN 7.3 GM/DL (6.4-8.2)
[2022-03-27] MEDS ORDERED: LORazepam 2 MG/ML VIAL IV PRN (05:50)
[2022-03-27] MEDS: HEPARIN SOD (PORCINE) 5000UNITS/ML 1ML VIAL/SYRINGE SC SCH ×4 (06:01→22:41)
[2022-03-27] MEDS: LR 1,000 ML IV SCH ×3 (06:01→22:41)
[2022-03-27] MEDS: BACITRACIN OINTMENT 30GM TUBE TOP SCH ×3 (09:15→20:38)
[2022-03-27] MEDS ORDERED: diphenhydrAMINE 50MG/ML VIAL (J1200) IV PRN (16:00)
[2022-03-27] MEDS ORDERED: LORazepam 2 MG/ML VIAL As Ordered ONE (18:51)
[2022-03-28] VITALS (7 sets, daily range): BP systolic 142–181; BP diastolic 69–86; O2SAT 96
[2022-03-28] MEDS: dexameTHASONE 4 MG/ML 1ML VIAL (J1100 PER 1MG) IV SCH ×3 (04:52→21:18)
[2022-03-28] MEDS: KETOROLAC 30 MG/ML 1ML VIAL IV SCH ×3 (04:52→21:19)
[2022-03-28] MEDS: HEPARIN SOD (PORCINE) 5000UNITS/ML 1ML VIAL/SYRINGE SC SCH ×3 (05:04→22:55)
[2022-03-28 05:48] LABS: HEMOGLOBIN 10.7 g/dl (12.0-15.5); MEAN CORPUSCULAR HEMOGLOBIN 29.6 pg (27.0-33.0); MEAN CORPUSCULAR HGB CONC 31.5 g/dl (32.0-36.5); MEAN CORPUSCULAR VOLUME 94.2 fl (80.0-96.0); PLATELET COUNT, AUTOMATED 230 10^3/uL (150-450); RED BLOOD COUNT 3.61 10^6/uL (4.00-5.40); WHITE BLOOD COUNT 8.9 10^3/uL (4.0-10.0)
[2022-03-28 06:20] LABS: BLOOD UREA NITROGEN 15 MG/DL (7-18); CALCIUM LEVEL 9.2 MG/DL (8.8-10.2); CARBON DIOXIDE LEVEL 23 MEQ/L (21-32); CHLORIDE LEVEL 107 MEQ/L (98-107); CREATININE FOR GFR 0.82 MG/DL (0.55-1.30); GLOMERULAR FILTRATION RATE > 60.0 (>39); GLUCOSE, FASTING 134 MG/DL (70-100); POTASSIUM SERUM 4.2 MEQ/L (3.5-5.1); SODIUM LEVEL 137 MEQ/L (136-145)
[2022-03-28] MEDS: BACITRACIN OINTMENT 30GM TUBE TOP SCH ×3 (08:20→21:20)
[2022-03-28] MEDS: LR 1,000 ML IV SCH ×2 (08:20→21:20)
[2022-03-28] MEDS: NORCO, ANEXSIA 5/325MG TABLET (HYDROcodone/ACETAMINOPHEN) PO PRN ×2 (10:42→17:03)
[2022-03-28] MEDS ORDERED: MIRALAX *UNIT DOSE* 17GM PACKET PO PRN (11:20)
[2022-03-28] MEDS ORDERED: METAMUCIL (PSYLLIUM) PACKET PO PRN (11:20)
[2022-03-28] MEDS ORDERED: POLYVINYL ALCOHOL OPHTH SOLN 15 ML(LIQUITEARS) OU PRN (11:20)
[2022-03-28] MEDS: PANTOPRAZOLE 40MG TAB (PROTONIX) PO SCH (11:48)
[2022-03-28] MEDS: ALPRAZolam 0.5 MG TAB PO PRN (15:08)
[2022-03-28] MEDS: TOPIRAMATE (TopAMAX) 25 MG TAB PO SCH (21:18)
[2022-03-28] MEDS ORDERED: diphenhydrAMINE 50MG/ML VIAL (J1200) IV ONE (21:40)
[2022-03-29] VITALS (15 sets, daily range): BP systolic 134–152; BP diastolic 63–70; O2SAT 93–97
[2022-03-29] MEDS: KETOROLAC 30 MG/ML 1ML VIAL IV SCH ×3 (03:55→21:23)
[2022-03-29] MEDS: ALPRAZolam 0.5 MG TAB PO PRN ×2 (04:46→12:07)
[2022-03-29] MEDS: HEPARIN SOD (PORCINE) 5000UNITS/ML 1ML VIAL/SYRINGE SC SCH ×3 (04:47→21:25)
[2022-03-29] MEDS ORDERED: dexameTHASONE 4 MG/ML 1ML VIAL (J1100 PER 1MG) IV SCH (06:25)
[2022-03-29 06:39] LABS: HEMATOCRIT 31.8 % (36.0-47.0); HEMOGLOBIN 10.2 g/dl (12.0-15.5); MEAN CORPUSCULAR HEMOGLOBIN 30.1 pg (27.0-33.0); MEAN CORPUSCULAR HGB CONC 32.1 g/dl (32.0-36.5); MEAN CORPUSCULAR VOLUME 93.8 fl (80.0-96.0); PLATELET COUNT, AUTOMATED 231 10^3/uL (150-450); RED BLOOD COUNT 3.39 10^6/uL (4.00-5.40); WHITE BLOOD COUNT 6.1 10^3/uL (4.0-10.0)
[2022-03-29 07:03] LABS: BLOOD UREA NITROGEN 20 MG/DL (7-18); CALCIUM LEVEL 8.7 MG/DL (8.8-10.2); CARBON DIOXIDE LEVEL 26 MEQ/L (21-32); CHLORIDE LEVEL 111 MEQ/L (98-107); CREATININE FOR GFR 0.77 MG/DL (0.55-1.30); GLOMERULAR FILTRATION RATE > 60.0 (>39); GLUCOSE, FASTING 150 MG/DL (70-100); POTASSIUM SERUM 3.9 MEQ/L (3.5-5.1); SODIUM LEVEL 142 MEQ/L (136-145)
[2022-03-29 07:10] LABS: INR 1.07; PROTHROMBIN TIME 14.3 SECONDS (12.7-14.5)
[2022-03-29] MEDS: LR 1,000 ML IV SCH (07:45)
[2022-03-29] MEDS: PANTOPRAZOLE 40MG TAB (PROTONIX) PO SCH (08:16)
[2022-03-29] MEDS: BACITRACIN OINTMENT 30GM TUBE TOP SCH ×3 (08:16→21:23)
[2022-03-29] MEDS: NORCO, ANEXSIA 5/325MG TABLET (HYDROcodone/ACETAMINOPHEN) PO PRN ×2 (15:37→23:06)
[2022-03-29] MEDS: CEPHALEXIN 500 MG CAP PO SCH ×2 (17:48→23:06)
[2022-03-29] MEDS ORDERED: diphenhydrAMINE 50MG/ML VIAL (J1200) IM ONE (21:10)
[2022-03-29] MEDS: ALPRAZolam 0.5 MG TAB PO SCH (21:22)
[2022-03-29] MEDS: TOPIRAMATE (TopAMAX) 25 MG TAB PO SCH (21:22)
[2022-03-29] MEDS ORDERED: ONDANSETRON 4MG 2ML VIAL IV ONE (21:25)
[2022-03-30 03:15] LABS: CLOSTRIDIUM DIFFICILE PCR NEGATIVE (NEGATIVE)
[2022-03-30 03:47] VITALS: BP 113/66
[2022-03-30] MEDS: KETOROLAC 30 MG/ML 1ML VIAL IV SCH ×2 (05:09→11:55)
[2022-03-30] MEDS: CEPHALEXIN 500 MG CAP PO SCH ×2 (05:10→11:55)
[2022-03-30] MEDS: HEPARIN SOD (PORCINE) 5000UNITS/ML 1ML VIAL/SYRINGE SC SCH (05:10)
[2022-03-30 05:13] VITALS: BP 101/55
[2022-03-30 07:28] LABS: HEMATOCRIT 33.2 % (36.0-47.0); HEMOGLOBIN 10.7 g/dl (12.0-15.5); MEAN CORPUSCULAR HEMOGLOBIN 29.6 pg (27.0-33.0); MEAN CORPUSCULAR HGB CONC 32.2 g/dl (32.0-36.5); PLATELET COUNT, AUTOMATED 194 10^3/uL (150-450); RED BLOOD COUNT 3.61 10^6/uL (4.00-5.40); WHITE BLOOD COUNT 2.4 10^3/uL (4.0-10.0)
[2022-03-30 08:00] VITALS: BP 106/59
[2022-03-30 08:04] LABS: BLOOD UREA NITROGEN 27 MG/DL (7-18); CARBON DIOXIDE LEVEL 25 MEQ/L (21-32); CHLORIDE LEVEL 111 MEQ/L (98-107); CREATININE FOR GFR 0.83 MG/DL (0.55-1.30); GLOMERULAR FILTRATION RATE > 60.0 (>39); GLUCOSE, FASTING 105 MG/DL (70-100); POTASSIUM SERUM 3.5 MEQ/L (3.5-5.1); SODIUM LEVEL 141 MEQ/L (136-145)
[2022-03-30] MEDS: ALPRAZolam 0.5 MG TAB PO SCH (08:34)
[2022-03-30] MEDS: PANTOPRAZOLE 40MG TAB (PROTONIX) PO SCH (08:34)
[2022-03-30] MEDS: BACITRACIN OINTMENT 30GM TUBE TOP SCH (08:35)
[2022-03-30] MEDS ORDERED: ONDA4TAB6 PO (10:08)
[2022-03-30] MEDS ORDERED: PERI0.126 PO (10:08)
[2022-03-30] MEDS: NORCO, ANEXSIA 5/325MG TABLET (HYDROcodone/ACETAMINOPHEN) PO PRN (11:55)
== END 2022-03-30 13:01 | disposition home or self-care (01) ==
LOC: INTOOBSV 10:00 → M OR 10:00 → M PCU 18:31
PROVIDERS: ADMIT Otolaryngology; ATTEND Otolaryngology
DX: C02.8 Malignant neoplasm of overlapping sites of tongue (principal); R00.0 Tachycardia, unspecified; D72.829 Elevated white blood cell count, unspecified; K57.92 Diverticulitis of intestine, part unspecified, without perforation or abscess without bleeding; K58.8 Other irritable bowel syndrome; K44.9 Diaphragmatic hernia without obstruction or gangrene; K21.9 Gastro-esophageal reflux disease without esophagitis; M81.0 Age-related osteoporosis without current pathological fracture; L40.8 Other psoriasis; G43.909 Migraine, unspecified, not intractable, without status migrainosus; F41.9 Anxiety disorder, unspecified; Z91.041 Radiographic dye allergy status; Z88.0 Allergy status to penicillin; Z88.2 Allergy status to sulfonamides; Z88.4 Allergy status to anesthetic agent; Z88.5 Allergy status to narcotic agent; Z88.1 Allergy status to other antibiotic agents; Z88.8 Allergy status to other drugs, medicaments and biological substances; Z79.899 Other long term (current) drug therapy; K90.41 Non-celiac gluten sensitivity
CPT/HCPCS: 36415; 41135; 71045; 80048; 80053; 81000; 81015; 83605; 84145; 85025; 85027; 85610; 87040; 87324; 87641; 88305; 88307; 88331; 88332; 88342; 92526; 92610; 93005; 96361; 96365; 96366; 96372; 96375; 96376; 97161; 97165; 97530; 97535; J0131; J0697; J1100; J1170; J1200; J1644; J1885; J2060; J2250; J2405; J3010

== ENCOUNTER → 2022-04-08 | Outpatient (CLI) | payer MEDICARE ==
[~2022-04-08] MED LIST changes: +ALPR0.5T3 PO; +HYDR-4571 PO; +ONDA4TAB6 PO; +PERI0.126 PO; -dexameTHASONE 4 MG/ML 1ML VIAL (J1100 PER 1MG) IV ONE
== END ==
LOC: M ONCR 14:26
PROVIDERS: ATTEND General Practice
DX: C02.8 Malignant neoplasm of overlapping sites of tongue (principal); Z85.818 Personal history of malignant neoplasm of other sites of lip, oral cavity, and pharynx; Z79.1 Long term (current) use of non-steroidal anti-inflammatories (NSAID); Z79.899 Other long term (current) drug therapy; Z88.0 Allergy status to penicillin; Z88.1 Allergy status to other antibiotic agents; Z88.2 Allergy status to sulfonamides; Z88.4 Allergy status to anesthetic agent; Z88.5 Allergy status to narcotic agent; Z88.8 Allergy status to other drugs, medicaments and biological substances; Z91.018 Allergy to other foods; Z91.041 Radiographic dye allergy status
CPT/HCPCS: 31575; G0463

== ENCOUNTER 2022-04-22 13:55 | Outpatient (RCR) | payer MEDICARE | END 2022-04-25 | LOC: M ONCR 13:55 | PROVIDERS: ATTEND General Practice | DX: C02.1 Malignant neoplasm of border of tongue (principal) ==

== ENCOUNTER 2022-04-23 14:00 | Outpatient (RCR) | payer MEDICARE | END 2022-04-25 | LOC: M ST 14:00 | PROVIDERS: ATTEND Otolaryngology | DX: C02.1 Malignant neoplasm of border of tongue (principal); R47.89 Other speech disturbances ==

== ENCOUNTER 2022-05-20 11:17 | Outpatient (RCR) | payer MEDICARE ==
[2022-05-23] MEDS ORDERED: OXYC1SOL3 PO (13:39)
[2022-05-23] MEDS ORDERED: MAGICMW PO (13:39)
[2022-05-26] MEDS ORDERED: HYDR5SYP11 PO (13:55)
[2022-06-16] MEDS ORDERED: HYDR5SYP PO (14:11)
== END 2022-05-26 23:59 | disposition home or self-care (01) ==
LOC: M PT 11:17
PROVIDERS: ATTEND Otolaryngology
DX: C02.1 Malignant neoplasm of border of tongue (principal)

== ENCOUNTER 2022-05-26 13:17 | Outpatient (RCR) | payer MEDICARE ==
[~2022-05-26 13:17] MED LIST changes: +MAGICMW PO; +OXYC1SOL3 PO
[2022-05-26] MEDS ORDERED: HYDR5SYP11 PO (13:55)
[2022-06-16] MEDS ORDERED: HYDR5SYP PO (14:11)
== END 2022-05-26 23:59 | disposition home or self-care (01) ==
LOC: M ONCR 13:17
PROVIDERS: ATTEND General Practice
DX: C02.1 Malignant neoplasm of border of tongue (principal)

== ENCOUNTER 2022-06-18 13:15 | Outpatient (RCR) | payer MEDICARE ==
[~2022-06-18 13:15] MED LIST changes: +HYDR5SYP PO; +HYDR5SYP11 PO
== END 2022-06-25 ==
LOC: M ONCR 13:15
PROVIDERS: ATTEND General Practice
DX: C02.1 Malignant neoplasm of border of tongue (principal)

== ENCOUNTER → 2022-06-25 | Outpatient (RCR) | payer MEDICARE | LOC: M PT 05-28 11:20 | PROVIDERS: ATTEND Otolaryngology | DX: C02.1 Malignant neoplasm of border of tongue (principal) ==

== ENCOUNTER → 2022-07-01 | Outpatient (CLI) | payer MEDICARE | LOC: M ONCR 10:54 | PROVIDERS: ATTEND General Practice | DX: C02.1 Malignant neoplasm of border of tongue (principal); L59.8 Other specified disorders of the skin and subcutaneous tissue related to radiation; R04.0 Epistaxis; Z92.3 Personal history of irradiation ==

== ENCOUNTER → 2022-07-31 | Outpatient (CLI) | payer MEDICARE ==
[~2022-07-31] MED LIST changes: +FLUC100T3 PO; +NYST1POW9 TOP
== END ==
LOC: M ONCR 10:11
PROVIDERS: ATTEND General Practice
DX: C02.1 Malignant neoplasm of border of tongue (principal); Z92.3 Personal history of irradiation

== ENCOUNTER 2022-08-13 09:35 | Outpatient (RCR) | payer MEDICARE | END 2022-08-26 | LOC: M ST 09:35 | PROVIDERS: ATTEND General Practice | DX: C02.1 Malignant neoplasm of border of tongue (principal); R13.10 Dysphagia, unspecified ==

== ENCOUNTER → 2022-08-19 | Outpatient (CLI) | payer MEDICARE | LOC: M WHC 12:53 | PROVIDERS: ATTEND Physician Assistant | DX: Z12.31 Encounter for screening mammogram for malignant neoplasm of breast (principal) ==

== ENCOUNTER → 2022-08-20 | Outpatient (CLI) | payer MEDICARE ==
[2022-08-20 12:23] LABS: ALBUMIN 3.9 G/DL (3.2-5.2); ALKALINE PHOSPHATASE 86 U/L (46-116); ALT/SGPT 21 U/L (7.0-40); AST/SGOT 29 U/L (<34); BILIRUBIN,TOTAL 0.5 MG/DL (0.3-1.2); BLOOD UREA NITROGEN 12 MG/DL (9-23); CALCIUM LEVEL 9.3 MG/DL (8.3-10.6); CARBON DIOXIDE LEVEL 24 MMOL/L (20-31); CHLORIDE LEVEL 108 MMOL/L (98-107); CREATININE FOR GFR 0.77 MG/DL (0.55-1.30); GLOMERULAR FILTRATION RATE > 60.0 (>39); GLUCOSE, FASTING 103 MG/DL (74-106); POTASSIUM SERUM 4.3 MMOL/L (3.5-5.1); SODIUM LEVEL 141 MMOL/L (136-145); TOTAL PROTEIN 6.9 G/DL (5.7-8.2)
== END ==
LOC: M LAB 10:43
PROVIDERS: ATTEND General Practice
DX: C02.1 Malignant neoplasm of border of tongue (principal)

== ENCOUNTER → 2022-08-29 | Outpatient (CLI) | payer MEDICARE ==
[~2022-08-29] MED LIST changes: +FAMOTIDINE 20MG/2ML VIAL IV ONE; +ISOVUE-370 76% 100ML VIAL As Ordered ONE; +diphenhydrAMINE 50MG/ML VIAL As Ordered ONE; +diphenhydrAMINE 50MG/ML VIAL IV ONE; +methylPREDNISolone 125MG 2ML VIAL As Ordered ONE; +methylPREDNISolone 125MG 2ML VIAL IV ONE
== END ==
LOC: M RAD 13:02
PROVIDERS: ATTEND Physician Assistant
DX: M54.6 Pain in thoracic spine (principal); M54.50 Low back pain, unspecified; K57.30 Diverticulosis of large intestine without perforation or abscess without bleeding; K80.20 Calculus of gallbladder without cholecystitis without obstruction; M48.14 Ankylosing hyperostosis [Forestier], thoracic region; Z85.840 Personal history of malignant neoplasm of eye; Z92.3 Personal history of irradiation; C02.1 Malignant neoplasm of border of tongue; Z98.890 Other specified postprocedural states
CPT/HCPCS: 70487; 70491; 72129; 74177; J1200; J2930; Q9967

== ENCOUNTER → 2022-08-29 | Outpatient (CLI) | payer MEDICARE ==
[~2022-08-29] MED LIST changes: -FAMOTIDINE 20MG/2ML VIAL IV ONE; -ISOVUE-370 76% 100ML VIAL As Ordered ONE; -diphenhydrAMINE 50MG/ML VIAL As Ordered ONE; -diphenhydrAMINE 50MG/ML VIAL IV ONE; -methylPREDNISolone 125MG 2ML VIAL As Ordered ONE; -methylPREDNISolone 125MG 2ML VIAL IV ONE
== END ==
LOC: M RAD 13:00
PROVIDERS: ATTEND General Practice
DX: C02.1 Malignant neoplasm of border of tongue (principal); Z98.890 Other specified postprocedural states

== ENCOUNTER → 2022-09-17 | Outpatient (CLI) | payer MEDICARE ==
[2022-09-17 11:30] LABS: FREE T3 3.1 PG/ML (2.3-4.2); FREE T4 1.05 NG/DL (0.89-1.76)
[2022-09-17 11:31] LABS: THYROID STIMULATING HORMONE 1.848 uIU/ML (0.55-4.78)
== END ==
LOC: M LAB 10:28
PROVIDERS: ATTEND Otolaryngology
DX: C02.1 Malignant neoplasm of border of tongue (principal)

== ENCOUNTER → 2022-09-26 | Outpatient (CLI) | payer MEDICARE | LOC: M ONCR 10:12 | PROVIDERS: ATTEND General Practice | DX: C02.1 Malignant neoplasm of border of tongue (principal); I89.0 Lymphedema, not elsewhere classified; Z91.041 Radiographic dye allergy status; Z79.1 Long term (current) use of non-steroidal anti-inflammatories (NSAID); Z79.51 Long term (current) use of inhaled steroids; Z79.891 Long term (current) use of opiate analgesic; Z79.899 Other long term (current) drug therapy; Z88.0 Allergy status to penicillin; Z88.1 Allergy status to other antibiotic agents; Z88.2 Allergy status to sulfonamides; Z88.5 Allergy status to narcotic agent; Z88.6 Allergy status to analgesic agent; Z88.8 Allergy status to other drugs, medicaments and biological substances; Z91.018 Allergy to other foods; Z92.3 Personal history of irradiation ==

== ENCOUNTER 2022-10-22 08:43 | Outpatient (RCR) | payer MEDICARE | END 2022-10-24 | LOC: M ST 08:43 | PROVIDERS: ATTEND General Practice | DX: C02.1 Malignant neoplasm of border of tongue (principal); R13.10 Dysphagia, unspecified; R47.9 Unspecified speech disturbances ==

== ENCOUNTER 2022-11-21 12:00 | Outpatient (RCR) | payer MEDICARE ==
[~2022-11-21 12:00] MED LIST changes: +LIDO15SO PO
== END 2022-11-23 ==
LOC: M PT 12:00
PROVIDERS: ATTEND General Practice
DX: C02.1 Malignant neoplasm of border of tongue (principal); R13.11 Dysphagia, oral phase; R47.81 Slurred speech

== ENCOUNTER 2022-12-17 13:20 | Outpatient (RCR) | payer MEDICARE | END 2022-12-24 | LOC: M PT 13:20 | PROVIDERS: ATTEND General Practice | DX: C02.1 Malignant neoplasm of border of tongue (principal); R13.11 Dysphagia, oral phase; R47.81 Slurred speech ==

== ENCOUNTER → 2022-12-19 | Outpatient (REF) | payer MEDICARE | LOC: M LAB REF 17:21 | PROVIDERS: ATTEND Physician Assistant Medical | DX: J32.9 Chronic sinusitis, unspecified (principal) ==

== ENCOUNTER → 2022-12-23 | Outpatient (CLI) | payer MEDICARE ==
[2022-12-23 12:44] LABS: BASO % 0.6 % (0.0-1.0); EOS % 0.4 % (0.0-3.0); HEMATOCRIT 36.4 % (36.0-47.0); HEMOGLOBIN 11.5 g/dl (12.0-15.5); LYMPH # 0.9 10^3/uL (1.5-5.0); LYMPH % 17.7 % (24.0-44.0); MEAN CORPUSCULAR HEMOGLOBIN 28.8 pg (27.0-33.0); MEAN CORPUSCULAR HGB CONC 31.6 g/dl (32.0-36.5); MONO # 0.4 10^3/uL (0.0-0.8); NEUTROPHILS # 3.6 10^3/uL (1.5-8.5); NEUTROPHILS % 73.1 % (36.0-66.0); PLATELET COUNT, AUTOMATED 245 10^3/uL (150-450)
[2022-12-23 13:10] LABS: ALBUMIN 3.8 G/DL (3.2-5.2); ALKALINE PHOSPHATASE 99 U/L (46-116); ALT/SGPT 11 U/L (7.0-40); AST/SGOT 18 U/L (<34); BILIRUBIN,TOTAL 0.4 MG/DL (0.3-1.2); BLOOD UREA NITROGEN 10 MG/DL (9-23); CALCIUM LEVEL 9.6 MG/DL (8.3-10.6); CARBON DIOXIDE LEVEL 25 MMOL/L (20-31); CHLORIDE LEVEL 106 MMOL/L (98-107); CREATININE FOR GFR 0.87 MG/DL (0.55-1.30); GLOMERULAR FILTRATION RATE > 60.0 (>39); GLUCOSE, FASTING 110 MG/DL (74-106); POTASSIUM SERUM 3.7 MMOL/L (3.5-5.1); SODIUM LEVEL 141 MMOL/L (136-145); TOTAL PROTEIN 7.2 G/DL (5.7-8.2)
[2022-12-23 13:14] LABS: ERYTHROCYTE SEDIMENTATION RATE 79 mm/hr (0-30)
== END ==
LOC: M LAB 12:01
PROVIDERS: ATTEND Physician Assistant
DX: R51.9 Headache, unspecified (principal)

== ENCOUNTER → 2022-12-30 | Outpatient (CLI) | payer MEDICARE ==
[~2022-12-30] MED LIST changes: +AMIT50TA PO; +DEXA4TA PO; +PRED5EL PO
== END ==
LOC: M ONCR 10:21
PROVIDERS: ATTEND General Practice
DX: C02.1 Malignant neoplasm of border of tongue (principal); B37.0 Candidal stomatitis; R13.10 Dysphagia, unspecified; R51.9 Headache, unspecified; Z71.2 Person consulting for explanation of examination or test findings; Z79.899 Other long term (current) drug therapy; Z88.0 Allergy status to penicillin; Z88.1 Allergy status to other antibiotic agents; Z88.2 Allergy status to sulfonamides; Z88.5 Allergy status to narcotic agent; Z88.6 Allergy status to analgesic agent; Z88.8 Allergy status to other drugs, medicaments and biological substances; Z91.018 Allergy to other foods; Z91.041 Radiographic dye allergy status; Z92.3 Personal history of irradiation

== ENCOUNTER → 2023-01-06 | Outpatient (CLI) | payer MEDICARE | LOC: M ONCR 09:31 | PROVIDERS: ATTEND General Practice | DX: G50.1 Atypical facial pain (principal); B37.0 Candidal stomatitis; Z79.52 Long term (current) use of systemic steroids; Z79.899 Other long term (current) drug therapy ==

== ENCOUNTER → 2023-01-13 | Outpatient (CLI) | payer MEDICARE ==
[~2023-01-13] MED LIST changes: +PROHANCE 279.3MG/ML 15ML VIAL ONE
== END ==
LOC: M PLAIMG 13:04
PROVIDERS: ATTEND Physician Assistant
DX: G43.009 Migraine without aura, not intractable, without status migrainosus (principal); Z85.810 Personal history of malignant neoplasm of tongue; H70.92 Unspecified mastoiditis, left ear; R90.82 White matter disease, unspecified; G31.9 Degenerative disease of nervous system, unspecified; C79.51 Secondary malignant neoplasm of bone
CPT/HCPCS: 70543; 70553; A9576

== ENCOUNTER → 2023-01-14 | Outpatient (CLI) | payer MEDICARE ==
[~2023-01-14] MED LIST changes: -PROHANCE 279.3MG/ML 15ML VIAL ONE
== END ==
LOC: M ONCR 09:02
PROVIDERS: ATTEND General Practice
DX: C02.1 Malignant neoplasm of border of tongue (principal); C79.89 Secondary malignant neoplasm of other specified sites; C79.31 Secondary malignant neoplasm of brain; Z71.2 Person consulting for explanation of examination or test findings; Z79.1 Long term (current) use of non-steroidal anti-inflammatories (NSAID); Z79.51 Long term (current) use of inhaled steroids; Z79.899 Other long term (current) drug therapy; Z88.0 Allergy status to penicillin; Z88.1 Allergy status to other antibiotic agents; Z88.2 Allergy status to sulfonamides; Z88.5 Allergy status to narcotic agent; Z88.8 Allergy status to other drugs, medicaments and biological substances; Z90.49 Acquired absence of other specified parts of digestive tract; Z91.018 Allergy to other foods; Z91.041 Radiographic dye allergy status; Z92.3 Personal history of irradiation
CPT/HCPCS: 88173; G0463

== ENCOUNTER 2023-01-19 13:45 | Inpatient (IN) | payer MEDICARE ==
[~2023-01-19] VITALS: Ht 152.4 cm; Wt 67.2 kg
[~2023-01-19 13:45] MED LIST changes: -HYOS125TA PO; -META58.68 PO; -MORP1SOL5 PO; -TRAN1DIS4 TOP
[2023-01-19 14:30] LABS: BASO % 0.1 % (0.0-1.0); HEMATOCRIT 42.9 % (36.0-47.0); HEMOGLOBIN 14.1 g/dl (12.0-15.5); LYMPH # 0.8 10^3/uL (1.5-5.0); LYMPH % 5.5 % (24.0-44.0); MEAN CORPUSCULAR HGB CONC 32.9 g/dl (32.0-36.5); MEAN CORPUSCULAR VOLUME 85.1 fl (80.0-96.0); MONO # 0.6 10^3/uL (0.0-0.8); MONO % 3.9 % (2.0-8.0); NEUTROPHILS # 13.4 10^3/uL (1.5-8.5); NEUTROPHILS % 89.2 % (36.0-66.0); PLATELET COUNT, AUTOMATED 262 10^3/uL (150-450); RED BLOOD COUNT 5.04 10^6/uL (4.00-5.40)
[2023-01-19] MEDS ORDERED: NS IV ONE (14:35)
[2023-01-19 14:42] LABS: INR 1.32; PROTHROMBIN TIME 16.6 SECONDS (12.5-14.5)
[2023-01-19 14:43] LABS: PARTIAL THROMBOPLASTIN TIME 27.9 SECONDS (24.8-34.2)
[2023-01-19 15:00] LABS: ALBUMIN 3.4 G/DL (3.2-5.2); ALKALINE PHOSPHATASE 190 U/L (46-116); ALT/SGPT 52 U/L (7.0-40); AST/SGOT 34 U/L (<34); BILIRUBIN,DIRECT 0.6 MG/DL (<0.4); BILIRUBIN,TOTAL 1.4 MG/DL (0.3-1.2); BLOOD UREA NITROGEN 39 MG/DL (9-23); CALCIUM LEVEL 12.6 MG/DL (8.3-10.6); CARBON DIOXIDE LEVEL 22 MMOL/L (20-31); CHLORIDE LEVEL 104 MMOL/L (98-107); CPK CREATINE PHOSPHOKINASE 30 U/L (34-145); CREATININE FOR GFR 0.83 MG/DL (0.55-1.30); GLOMERULAR FILTRATION RATE > 60.0 (>39); GLUCOSE, FASTING 138 MG/DL (74-106); MB/CK RELATIVE INDEX 13.33 (< OR =4); POTASSIUM SERUM 3.1 MMOL/L (3.5-5.1); PREALBUMIN 17.8 MG/DL (10.0-40.0); SODIUM LEVEL 140 MMOL/L (136-145); TOTAL PROTEIN 7.4 G/DL (5.7-8.2)
[2023-01-19 15:02] LABS: FREE T4 0.99 NG/DL (0.89-1.76)
[2023-01-19 15:03] LABS: THYROID STIMULATING HORMONE 0.338 uIU/ML (0.55-4.78)
[2023-01-19 16:10] LABS: CK-MB VALUE MASS 3.8 NG/ML (<3.6)
[2023-01-19 16:12] LABS: MB/CK RELATIVE INDEX 12.66 (< OR =4)
[2023-01-19] MEDS ORDERED: ACETAMINOPHEN 1000MG 100ML IV BAG IV ONE (16:30)
[2023-01-19] MEDS ORDERED: POTASSIUM CHLORIDE 10MEQ SR TABLET PO ONE (16:30)
[2023-01-19 18:26] VITALS: BP 139/75; TEMP 97; O2SAT 99
[2023-01-19] MEDS ORDERED: ACETAMINOPHEN TAB 650MG DOSE (2X325MG) PO ONE (18:50)
[2023-01-19] MEDS: NS 1,000 ML IV SCH ×4 (18:57→21:26)
[2023-01-19] MEDS ORDERED: METOCLOPRAMIDE INJ 10MG/2ML VIAL IV ONE (19:35)
[2023-01-19 20:00] VITALS: BP 144/64; TEMP 96.8; O2SAT 97
[2023-01-19 20:36] LABS: MB/CK RELATIVE INDEX 13.88 (< OR =4)
[2023-01-19] MEDS: CALCITONIN SALMON (MIACALCIN) 400INTERNATIONAL UNITS/2ML VIAL SQ SCH (21:39)
[2023-01-19] MEDS ORDERED: ACETAMINOPHEN TAB 650MG DOSE (2X325MG) PO PRN (22:00)
[2023-01-19] MEDS: KCL 10MEQ/100ML SWI (KRUN) 10 MEQ in IV 1 EA IV SCH (22:47)
[2023-01-19] MEDS ORDERED: META58.68 PO (22:54)
[2023-01-19] MEDS ORDERED: HOME MED LIST COMPLETE! XX SCH (22:55)
[2023-01-19] MEDS ORDERED: MORPHINE 2 MG/ML 1ML VIAL IV ONE (23:00)
[2023-01-19 23:50] VITALS: BP 138/66; TEMP 97.3; O2SAT 96
[2023-01-20] MEDS: KCL 10MEQ/100ML SWI (KRUN) 10 MEQ in IV 1 EA IV SCH ×3 (00:29→03:18)
[2023-01-20 00:59] LABS: CK-MB VALUE MASS 6.5 NG/ML (<3.6)
[2023-01-20 01:00] LABS: MB/CK RELATIVE INDEX 17.1 (< OR =4)
[2023-01-20 04:00] VITALS: BP 163/72; TEMP 96.5; O2SAT 97
[2023-01-20] MEDS ORDERED: METOCLOPRAMIDE INJ 10MG/2ML VIAL IV ONE ×2 (04:00→15:40)
[2023-01-20] MEDS: NS 1,000 ML IV SCH ×2 (04:33→07:40)
[2023-01-20] MEDS ORDERED: MORPHINE 2 MG/ML 1ML VIAL IV ONE ×2 (05:00→10:00)
[2023-01-20 05:48] LABS: HEMATOCRIT 37.3 % (36.0-47.0); MEAN CORPUSCULAR HEMOGLOBIN 27.8 pg (27.0-33.0); MEAN CORPUSCULAR HGB CONC 31.9 g/dl (32.0-36.5); MEAN CORPUSCULAR VOLUME 87.1 fl (80.0-96.0); PLATELET COUNT, AUTOMATED 162 10^3/uL (150-450); RED BLOOD COUNT 4.28 10^6/uL (4.00-5.40); WHITE BLOOD COUNT 10.5 10^3/uL (4.0-10.0)
[2023-01-20 05:50] LABS: HEMOGLOBIN 11.9 g/dl (12.0-15.5)
[2023-01-20 06:06] LABS: MB/CK RELATIVE INDEX 17.64 (< OR =4)
[2023-01-20 06:10] LABS: BLOOD UREA NITROGEN 16 MG/DL (9-23); CALCIUM LEVEL 9.1 MG/DL (8.3-10.6); CARBON DIOXIDE LEVEL 20 MMOL/L (20-31); CHLORIDE LEVEL 109 MMOL/L (98-107); GLOMERULAR FILTRATION RATE > 60.0 (>39); GLUCOSE, FASTING 112 MG/DL (74-106); POTASSIUM SERUM 3.1 MMOL/L (3.5-5.1); SODIUM LEVEL 140 MMOL/L (136-145)
[2023-01-20] MEDS: CALCITONIN SALMON (MIACALCIN) 400INTERNATIONAL UNITS/2ML VIAL SQ SCH (06:49)
[2023-01-20 07:35] VITALS: BP 140/70; TEMP 98.1; O2SAT 95
[2023-01-20] MEDS ORDERED: POTASSIUM CHLORIDE 10MEQ SR TABLET PO ONE (07:40)
[2023-01-20] MEDS: SUCRALFATE 1 GM TAB PO SCH ×2 (08:00→18:39)
[2023-01-20 08:15] LABS: CK-MB VALUE MASS 6.3 NG/ML (<3.6)
[2023-01-20 08:16] LABS: MB/CK RELATIVE INDEX 18.52 (< OR =4)
[2023-01-20] MEDS ORDERED: NITROGLYCERIN 0.4MG SUBL TABLET SL PRN (09:20)
[2023-01-20] MEDS: OMEPRAZOLE 20MG CAP PO SCH (09:55)
[2023-01-20] MEDS: ASPIRIN 81MG CHEW TABLET PO SCH (09:55)
[2023-01-20] MEDS: dexAMETHasone 4 MG TAB PO SCH (09:55)
[2023-01-20] MEDS: HEPARIN SOD (PORCINE) 5000UNITS/ML 1ML VIAL/SYRINGE SQ SCH ×2 (09:55→20:26)
[2023-01-20 15:06] LABS: CK-MB VALUE MASS 4.8 NG/ML (<3.6)
[2023-01-20 15:08] LABS: MB/CK RELATIVE INDEX 12.3 (< OR =4)
[2023-01-20] MEDS ORDERED: ONDANSETRON 4MG 2ML VIAL IV PRN (15:40)
[2023-01-20 16:15] VITALS: BP 144/72; TEMP 98.3; O2SAT 96
[2023-01-20 19:30] VITALS: BP 141/74; TEMP 97.5; O2SAT 97
[2023-01-20] MEDS: MEGESTROL 400MG 10ML SUSP ORAL SYRINGE *DRAW UP EXACT DOSE PO SCH (20:26)
[2023-01-20 21:06] LABS: CK-MB VALUE MASS 3.4 NG/ML (<3.6); MB/CK RELATIVE INDEX 9.18 (< OR =4)
[2023-01-21 02:44] LABS: CK-MB VALUE MASS 3.3 NG/ML (<3.6)
[2023-01-21 02:55] LABS: MB/CK RELATIVE INDEX 6.73 (< OR =4)
[2023-01-21 06:00] VITALS: BP 136/74; TEMP 98.1; O2SAT 95
[2023-01-21 06:14] LABS: HEMATOCRIT 35.7 % (36.0-47.0); MEAN CORPUSCULAR HEMOGLOBIN 28.2 pg (27.0-33.0); MEAN CORPUSCULAR HGB CONC 33.6 g/dl (32.0-36.5); MEAN CORPUSCULAR VOLUME 83.8 fl (80.0-96.0); PLATELET COUNT, AUTOMATED 156 10^3/uL (150-450); RED BLOOD COUNT 4.26 10^6/uL (4.00-5.40); WHITE BLOOD COUNT 9.9 10^3/uL (4.0-10.0)
[2023-01-21 06:34] LABS: BLOOD UREA NITROGEN 10 MG/DL (9-23); CALCIUM LEVEL 8.8 MG/DL (8.3-10.6); CARBON DIOXIDE LEVEL 25 MMOL/L (20-31); CHLORIDE LEVEL 104 MMOL/L (98-107); CHOLESTEROL LEVEL 119 MG/DL (<200); CHOLESTEROL RISK RATIO 3.27 (<5); CREATININE FOR GFR 0.53 MG/DL (0.55-1.30); GLOMERULAR FILTRATION RATE > 60.0 (>39); GLUCOSE, FASTING 106 MG/DL (74-106); HDL CHOLESTEROL 36.3 MG/DL (>40); LDL CHOLESTEROL 58.1 MG/DL (<100); NON-HDL-C 82.7 MG/DL; POTASSIUM SERUM 2.8 MMOL/L (3.5-5.1); SODIUM LEVEL 139 MMOL/L (136-145); TRIGLYCERIDES LEVEL 123 MG/DL (<150)
[2023-01-21] MEDS ORDERED: POTASSIUM CHLORIDE 10MEQ SR TABLET PO ONE (07:00)
[2023-01-21] MEDS: OMEPRAZOLE 20MG CAP PO SCH (08:23)
[2023-01-21] MEDS: SUCRALFATE 1 GM TAB PO SCH (08:23)
[2023-01-21] MEDS: dexAMETHasone 4 MG TAB PO SCH (08:23)
[2023-01-21] MEDS: ASPIRIN 81MG CHEW TABLET PO SCH (08:23)
[2023-01-21] MEDS: HEPARIN SOD (PORCINE) 5000UNITS/ML 1ML VIAL/SYRINGE SQ SCH (08:24)
[2023-01-21 08:29] LABS: CK-MB VALUE MASS 3.7 NG/ML (<3.6)
[2023-01-21 08:31] LABS: MB/CK RELATIVE INDEX 5.96 (< OR =4)
[2023-01-21] MEDS ORDERED: ATROPINE SULFATE 1% OPHTH SOLN 2ML BTL SL PRN (09:55)
[2023-01-21] MEDS ORDERED: LORazepam 1 MG TAB PO PRN (09:55)
[2023-01-21] MEDS ORDERED: ONDANSETRON 4MG 2ML VIAL IV PRN (09:55)
[2023-01-21] MEDS ORDERED: HYOSCYAMINE SULFATE 0.125 MG SUBL TABLET PO PRN (09:55)
[2023-01-21] MEDS ORDERED: SCOPOLAMINE 1MG TRANSDERMAL PATCH TOP PRN (09:55)
[2023-01-21] MEDS ORDERED: FLEET ENEMA PR PRN (09:55)
[2023-01-21] MEDS: MORPHINE 10MG/0.5ML ORAL CONCENTRATE SOLUTION U/D SL PRN ×2 (10:19→15:08)
[2023-01-21 14:00] VITALS: BP 128/68; TEMP 98.1; O2SAT 98
[2023-01-21] MEDS: MEGESTROL 400MG 10ML SUSP ORAL SYRINGE *DRAW UP EXACT DOSE PO SCH (21:00)
[2023-01-21] MEDS ORDERED: POTASSIUM CHLORIDE 10MEQ SR TABLET PO SCH (21:00)
[2023-01-22] MEDS: MORPHINE 10MG/0.5ML ORAL CONCENTRATE SOLUTION U/D SL PRN (01:40)
[2023-01-22] MEDS ORDERED: PANTOPRAZOLE 40MG VIAL IV ONE (07:50)
[2023-01-22] MEDS ORDERED: MAALOX 30 ML SUSP *UDC PO PRN (07:50)
[2023-01-22] MEDS ORDERED: MAALOX 30 ML SUSP *UDC PO ONE (07:50)
[2023-01-22] MEDS ORDERED: MORPHINE 2 MG/ML 1ML VIAL IV ONE (07:50)
[2023-01-22] MEDS: dexAMETHasone 4 MG TAB PO SCH (08:14)
[2023-01-22] MEDS: MORPHINE 10MG/0.5ML ORAL CONCENTRATE SOLUTION U/D SL SCH ×2 (14:00→22:33)
[2023-01-22] MEDS: MORPHINE 2 MG/ML 1ML VIAL IV PRN (18:03)
[2023-01-22] MEDS: MEGESTROL 400MG 10ML SUSP ORAL SYRINGE *DRAW UP EXACT DOSE PO SCH (20:09)
[2023-01-23] MEDS: MORPHINE 2 MG/ML 1ML VIAL IV PRN ×2 (02:48→07:49)
[2023-01-23] MEDS: MORPHINE 10MG/0.5ML ORAL CONCENTRATE SOLUTION U/D SL SCH (05:57)
[2023-01-23] MEDS: OMEPRAZOLE 20MG CAP PO SCH (07:49)
[2023-01-23] MEDS: dexAMETHasone 4 MG TAB PO SCH (07:49)
[2023-01-23] MEDS ORDERED: MORPHINE 10MG/0.5ML ORAL CONCENTRATE SOLUTION U/D SL PRN (07:55)
[2023-01-23] MEDS ORDERED: MORPHINE 2 MG/ML 1ML VIAL IV ONE (07:55)
[2023-01-23] MEDS ORDERED: LORazepam 2 MG/ML 1ML VIAL IV PRN (08:25)
[2023-01-23] MEDS ORDERED: TRAN1DIS4 TOP (09:54)
[2023-01-23] MEDS ORDERED: MORP1SOL5 PO (09:54)
[2023-01-23] MEDS ORDERED: HYOS125TA PO (09:54)
[2023-01-23] MEDS ORDERED: MORPHINE 10MG/0.5ML ORAL CONCENTRATE SOLUTION U/D SL SCH (12:00)
== END 2023-01-23 11:38 | disposition hospice, inpatient (51) | DRG 640 ==
LOC: M ED 13:45 → M PCU 16:27 → ENRESERV 16:35 → M MSPAV 01-20 19:30
PROVIDERS: ADMIT General Practice; ATTEND General Practice
PROC: B246ZZZ Ultrasonography of Right and Left Heart (ICD-10-PCS; principal; 2023-01-20)
DX: E83.52 Hypercalcemia (principal); G93.6 Cerebral edema; C78.7 Secondary malignant neoplasm of liver and intrahepatic bile duct; C79.51 Secondary malignant neoplasm of bone; R65.10 Systemic inflammatory response syndrome (SIRS) of non-infectious origin without acute organ dysfunction; R62.7 Adult failure to thrive; G47.00 Insomnia, unspecified; E86.0 Dehydration; C02.1 Malignant neoplasm of border of tongue; R63.0 Anorexia; Z66 Do not resuscitate; E87.6 Hypokalemia; F41.9 Anxiety disorder, unspecified; I10 Essential (primary) hypertension; G43.909 Migraine, unspecified, not intractable, without status migrainosus; Z88.0 Allergy status to penicillin; Z88.1 Allergy status to other antibiotic agents; Z88.2 Allergy status to sulfonamides; Z88.5 Allergy status to narcotic agent; Z88.8 Allergy status to other drugs, medicaments and biological substances; Z91.041 Radiographic dye allergy status; Z91.018 Allergy to other foods; Z79.899 Other long term (current) drug therapy

== ENCOUNTER → 2023-01-19 | Outpatient (CLI) | payer MEDICARE ==
[~2023-01-19] MED LIST changes: +HYOS125TA PO; +META58.68 PO; +MORP1SOL5 PO; +TRAN1DIS4 TOP
== END ==
LOC: M PLARAD 10:33
PROVIDERS: ATTEND General Practice
DX: C02.1 Malignant neoplasm of border of tongue (principal); I70.0 Atherosclerosis of aorta; I25.10 Atherosclerotic heart disease of native coronary artery without angina pectoris

== ENCOUNTER 2023-01-20 08:45 | Outpatient (RCR) | payer MEDICARE ==
[~2023-01-20 08:45] MED LIST changes: +KCL 10MEQ/100ML SWI (KRUN) 10 MEQ in IV 1 EA IV ONE; +META58.68 PO; +MORPHINE 2 MG/ML 1ML VIAL IV ONE
[2023-01-23] MEDS ORDERED: HYOS125TA PO (09:54)
[2023-01-23] MEDS ORDERED: MORP1SOL5 PO (09:54)
[2023-01-23] MEDS ORDERED: TRAN1DIS4 TOP (09:54)
== END 2023-01-23 ==
LOC: M ONCR 08:45
PROVIDERS: ATTEND General Practice
DX: C02.1 Malignant neoplasm of border of tongue (principal); C79.31 Secondary malignant neoplasm of brain